=== PATIENT | male | born 1965 | race Caucasian/White ===

== ENCOUNTER 2020-09-19 07:48 | Outpatient (CLI) | payer OTHER, SELFPAY ==
[2020-09-19 08:24] LABS: Hematocrit 45.8 % (42.0-52.0); Hemoglobin 15.6 g/dL (14.0-18.0); Mean Corpuscular HGB Conc 34.1 g/dl (32-36); Mean Corpuscular Hemoglobin 30.3 pg (26-34); Mean Corpuscular Volume 88.9 fl (80-100); Mean Platelet Volume 10.1 fl (7.4-10.4); Platelet Count Result 216 k/mm3 (150-375); Red Blood Count 5.15 M/mm3 (4.6-6.20); Red Cell Distribution Width 12.1 % (11.5-14.5); White Blood Count 6.4 K/mm3 (4.5-10.0)
[2020-09-19 08:36] LABS: Add Urine Microscopic? YES; Appearance Urine Clear (Clear); Bilirubin Urine Negative (Negative); Blood Urine 1+ (Negative); Color Urine Yellow (Yellow); Glucose Urine UA Negative (Negative); Ketones Urine Negative (Negative); Leukocyte Esterase Ur Negative LEU/UL (NEGATIVE); Mucus Urine Rare /lpf; Nitrate Urine Negative (Negative); Protein Urine Negative (Negative); RBC Urine 0-2 /hpf (0-2); Specific Grav Ur 1.021 (1.001-1.035); Urobilinogen Urine Negative mg/dL (<2.0); WBC Urine 0-3 /hpf (0-3)
[2020-09-19 09:08] LABS: Alanine Aminotransferase 20 U/L (4-50); Albumin Level 4.3 g/dL (3.5-5.1); Alkaline Phosphatase 71 U/L (38-126); Anion Gap 7 mmol/L (8-16); Aspartate Amino Transferase 26 U/L (17-59); Blood Urea Nitrogen 20 mg/dL (9-20); Calcium 9.2 mg/dL (8.4-10.2); Carbon Dioxide 31 mmol/L (22-30); Chloride 98 mmol/L (98-107); Cholesterol 189 mg/dL (0-200); Estimated Glomerular Filt Rate > 60; Glucose 153 mg/dL (75-110); HDL Direct 30 mg/dL; Potassium 3.8 mmol/L (3.4-5.0); Sodium 136 mmol/L (137-145); Triglycerides 158 mg/dL (<150)
[2020-09-19 09:18] LABS: LDL Cholesterol Direct 133 mg/dL
[2020-09-19 09:32] LABS: Prostate Specific Antigen 0.8 ng/mL (< OR = 4.0); Thyroid Stimulating Hormone 0.854 uIU/mL (0.465-4.680)
[2020-09-19 18:04] LABS: Hemoglobin A1C 6.9 % (<5.7)
== END 2020-09-19 07:49 | disposition home or self-care (01) ==
PROVIDERS: PCP Family Medicine; Visit Provider Family Medicine
DX: G47.33 Obstructive sleep apnea (adult) (pediatric) (principal); R35.1 Nocturia; I10 Essential (primary) hypertension; Z00.00 Encounter for general adult medical examination without abnormal findings; Z51.81 Encounter for therapeutic drug level monitoring; Z79.899 Other long term (current) drug therapy
CPT/HCPCS: 36415; 80053; 80061; 81001; 83036; 84153; 84443; 85027

== ENCOUNTER 2021-01-12 10:30 | Outpatient (RCR) | payer OTHER, SELFPAY ==
[2020-10-30 14:05] VITALS: BMI 40.6
[2020-10-30 14:10] VITALS: BMI 40.6
== END 2021-01-12 13:56 | disposition home or self-care (01) ==
LOC: ANHDMC 10:30
PROVIDERS: PCP Family Medicine; Visit Provider Family Medicine
DX: E11.65 Type 2 diabetes mellitus with hyperglycemia (principal); Z71.3 Dietary counseling and surveillance; Z71.89 Other specified counseling
CPT/HCPCS: 97802; G0108

== ENCOUNTER 2021-01-13 07:52 | Outpatient (CLI) | payer OTHER, SELFPAY ==
[2021-01-13 08:36] LABS: Alanine Aminotransferase 23 U/L (4-50); Albumin Level 4.3 g/dL (3.5-5.1); Alkaline Phosphatase 60 U/L (38-126); Anion Gap 6 mmol/L (8-16); Aspartate Amino Transferase 27 U/L (17-59); Bilirubin,Total 0.7 mg/dL (0.2-1.3); Blood Urea Nitrogen 22 mg/dL (9-20); Calcium 8.6 mg/dL (8.4-10.2); Carbon Dioxide 32 mmol/L (22-30); Chloride 100 mmol/L (98-107); Estimated Glomerular Filt Rate 58; Glucose 125 mg/dL (75-110); Sodium 138 mmol/L (137-145)
[2021-01-13 08:42] LABS: Hemoglobin A1C 6.7 % (<5.7)
== END 2021-01-13 07:53 | disposition home or self-care (01) ==
PROVIDERS: PCP Family Medicine; Visit Provider Family Medicine
DX: E11.9 Type 2 diabetes mellitus without complications (principal)
CPT/HCPCS: 36415; 80053; 83036

== ENCOUNTER 2021-01-21 09:19 | Observation (INO) | payer OTHER, SELFPAY ==
[2021-01-21] VITALS (13 sets, daily range): BP systolic 104–156; BP diastolic 66–95; PULSE 49–68; RESP 14–16; TEMP 36.2–36.6; O2SAT 95–99; BMI 38.8
--- NOTE | ~2021-01-21 | XR_ITS ---
EXAMINATION: XR chest 2V DATE: 01/21/2021 09:39 INDICATION: Chest pain. TECHNIQUE: Frontal and lateral views of the chest were obtained. COMPARISON: Chest 2 views 04/09/2019, chest CT 03/28/2019 FINDINGS: There is no pneumonia, pleural effusion, or pneumothorax. The heart size is normal. There a re prominent paracardial fat pads. There is an old fracture of right eighth rib. IMPRESSION: 1. No acute cardiopulmonary disease. Reviewed, dictated and finalized at location A.
--- NOTE | 2021-01-21 09:24 | ECG_ITS ---
Measurements Intervals [place] Rate: 57 P: 29 NE: 205 QRS: -11 QRSD: 163 T: -24 QT: 442 QTc: 431 Interpretive Statements SINUS BRADYCARDIA WITH FIRST DEGREE AV BLOCK RIGHT BUNDLE BRANCH BLOCK INFERIOR INFARCT, AGE INDETERMINATE BASELINE ARTIFACT- II ABNORMAL ECG Electronically Signed On 01-21-2021 9:41:05 CDT by Trevor Laws D.O.
[2021-01-21] MEDS: ASPIRIN 81 MG CHEWABLE TABLET 324 MG PO (10:29)
--- NOTE | 2021-01-21 10:31 | ED.CHESTPAIN ---
HPI - Chest Pain General Chief Complaint: Chest Pain Stated Complaint: chest pain Time Seen by Provider: 01/21/21 10:24 Source: patient and RN notes reviewed Mode of arrival: ambulatory Limitations: no limitations History of Present Illness HPI narrative: Patient is 55 years old white male went see his family physician today for diabetes follow-up. Then told his family physician that he been having intermittent chest pain all night long last between 2 and 5 minutes each time, random, associated with intermittent shortness of breath, denies radiation of pain, denies any aggravating or relieving factors. Had similar symptoms 2 years ago with negative cardiac cath. History of hypertension, diabetes, hyperlipidemia, sister had history of coronary artery disease. Patient does not smoke. Patient does not know his parents history. Patient denies any fever, chills, nausea, vomiting, back pain, coughing Related Data Home Medications Medication Instructions Recorded Confirmed carvedilol 25 mg tablet 25 mg PO Q12H 09/05/19 01/21/21 chlorthalidone 25 mg tablet 25 mg PO DAILY 09/05/19 01/21/21 lisinopril 40 mg tablet 40 mg PO DAILY 09/05/19 01/21/21 Allergies Allergy/AdvReac Type Severity Reaction Status Date / Time No Known Allergies Allergy Verified 01/21/21 08:43 Review of Systems Review of Systems: Narrative: CONSTITUTIONAL: Denies fever, chills, or sweats. EYES: Denies visual changes, redness, or discharge. ENT: Denies rhinorrhea, congestion, sore throat, or otalgia. CARDIOVASCULAR: Denies chest pain, palpitations, or edema. RESPIRATORY: Denies cough or dyspnea. GASTROINTESTINAL: Denies abdominal pain, nausea, vomiting, or diarrhea. GENITOURINARY: Denies dysuria or hematuria. SKIN: Denies rash or itching. MUSCULOSKELETAL: Denies back pain, joint pain, or myalgia. NEUROLOGIC: Denies headache, numbness, or weakness. PSYCHIATRIC: Denies anxiety or depression. [facility] Past Medical History Medical History SHRUTHI (obstructive sleep apnea) Family History Family History Mother Diabetes mellitus Hypertension Family history of cardiovascular disease Sibling Hypertension Family history of cardiovascular disease Social History Social History Smoking status: Never smoker Second hand tobacco smoke exposure: No Alcohol intake: current Substance use: never Substance use type: does not use Gender identity (if verbalized by the patient): Male Spiritual care concerns: No Exam Narrative: Exam Narrative: General appearance: Well-developed, well-nourished Skin: Normal color Head: Normocephalic, nontraumatic Eyes: Clear conjunctiva ENT: Oropharynx normal, ears normal, nose normal Neck: Supple, nontender Chest and respiratory: Airway patent, no respiratory distress, no accessory muscle use Heart: Regular rate/rhythm Abdomen: Soft, nontender, no organomegaly, quiet bowel sounds Vascular: Normal peripheral pulses, normal capillary refill. Musculoskeletal: Normal range of motion, nontender back Neurologic: Alert and oriented ?3, [employer] is normal as tested, no gross motor deficit Course Consultations Consultation #1: Dr. Pool Date: 01/21/21 Time: 10:33 Consultation #2: Dr. Rodriguez Date: 01/21/21 Time: 11:18 Vital Signs Vital signs: Vital Signs Pulse Rate 60 01/21/21 09:52 Temperature 36.6 C 01/21/21 09:56 Pulse Rate 56 L 01/21/21 10:30 Respiratory Rate 14 01/21/21 10:30 Blood Pressure 154/83 H 01/21/21 10:30 Pulse Oximetry 99 01/21/21 10:30 MDM - Ches
[2021-01-21 10:36] LABS: Basophils Percent Auto 0.4 % (0.2-1.2); Eosinophils Absolute Auto 0.1 K/mm3 (0-0.3); Eosinophils Percent Auto 1.8 % (0-4.4); Hematocrit 45.5 % (42.0-52.0); Hemoglobin 15.5 g/dL (14.0-18.0); Immature Granulocyte Absolute 0.03 K/mm3 (0.00-0.031); Immature Granulocyte Percent A 0.4 % (0-0.5); Lymphocytes Absolute Auto 1.55 K/mm3 (0.9-3.2); Lymphocytes Percent Auto 22.9 % (18.3-44.2); Mean Corpuscular HGB Conc 34.1 g/dl (32-36); Mean Corpuscular Hemoglobin 30.8 pg (26-34); Mean Corpuscular Volume 90.5 fl (80-100); Mean Platelet Volume 10.3 fl (7.4-10.4); Monocytes Absolute Auto 0.7 K/mm3 (0.1-0.6); Monocytes Percent Auto 9.6 % (2.6-8.5); Neutrophils Absolute Auto 4.4 K/mm3 (1.3-6.7); Neutrophils Percent Auto 64.9 % (45.5-73.1); Platelet Count Result 196 k/mm3 (150-375); Red Blood Count 5.03 M/mm3 (4.6-6.20); Red Cell Distribution Width 12.7 % (11.5-14.5); White Blood Count 6.8 K/mm3 (4.5-10.0)
[2021-01-21 10:46] LABS: Prothrombin Time 13.4 Seconds (11.1-14.7)
[2021-01-21 10:49] LABS: Anion Gap 9 mmol/L (8-16); Blood Urea Nitrogen 25 mg/dL (9-20); Calcium 8.9 mg/dL (8.4-10.2); Carbon Dioxide 28 mmol/L (22-30); Chloride 98 mmol/L (98-107); Estimated CRCL calculation 83 ml/min; Estimated Glomerular Filt Rate > 60; Glucose 130 mg/dL (75-110); Potassium 3.8 mmol/L (3.4-5.0); Sodium 135 mmol/L (137-145)
[2021-01-21 11:00] LABS: Troponin I < 0.012 ng/mL (0.000-0.034)
[2021-01-21] MEDS: METOPROLOL TARTRATE 25 MG TABLET PO (11:15)
[2021-01-21] MEDS: NITROGLYCERIN SL 0.4 MG TABLET SUBLINGUAL (11:16)
[2021-01-21 14:04] LABS: Troponin I < 0.012 ng/mL (0.000-0.034)
--- NOTE | 2021-01-21 15:23 | PM.CNCAR ---
Assessment and Plan Assessment and plan (1) Chest pain: Qualifiers: Chest pain type: unspecified Qualified Code(s): R07.9 - Chest pain, unspecified Code(s): R07.9 - Chest pain, unspecified Status: Acute Assessment and Plan: Atypical, very likely noncardiac although cannot exclude esophageal and/or coronary vasospasm. Given normal coronary anatomy left heart catheterization February 2019 very unlikely patient has developed significant/severe obstructive CAD any interval with negative cardiac enzymes. Symptoms are atypical caring at rest, no aggravating or relieving factors. Improved with sublingual nitroglycerin but with significant headache. Add amlodipine 2.5 mg daily for basal dilatation. Monitor tolerance. Disposition per hospitalist service. If patient stable, tolerating medical therapy and chest pain much improved discharged home to follow with PCP and Dr. Marie as an outpatient. No indication to repeat ischemic evaluation given normal coronary anatomy on recent cardiac catheterization. No clinical evidence of pericarditis. EKG is abnormal but is unchanged compared to prior tracing 2018 with right bundle-branch block, inferior myocardial infarction but with normal coronary anatomy left heart catheterization as described above. (2) Essential hypertension: Code(s): I10 - Essential (primary) hypertension Status: Acute Assessment and Plan: Reasonable control at home although somewhat variable. Monitor tolerance was addition of amlodipine. (3) SHRUTHI (obstructive sleep apnea): Code(s): G47.33 - Obstructive sleep apnea (adult) (pediatric) Status: Acute Assessment and Plan: Strongly encouraged compliance with CPAP as this may also be contributing but patient states this has been difficult for him due to claustrophobia. (4) Diabetes mellitus: Code(s): E11.9 - Type 2 diabetes mellitus without complications Status: Acute Assessment and Plan: Per primary service. History of Present Illness History of Present Illness Consult date/time: Date of service: 01/21/21 15:23 Cardiology consultation at the request of Dr. Vo for our opinion regarding chest pain. Requesting physician: Eusebia Vo MD Consult reason: chest pain Reason For Visit: chest pain Narrative: With past medical history significant for hypertension, diabetes mellitus, obesity, untreated obstructive sleep apnea, and normal coronary anatomy and left heart catheterization performed February 2019, chronic right bundle-branch block presents to his PCP earlier today with complaints of intermittent squeezing chest pain worse than normal. Patient states he has years history of almost a daily left-sided chest squeezing occurring randomly lasting few seconds generally without associated symptoms. On couple of occasions with seen to radiate to his left arm where it at least felt a little uncomfortable. Patient states last night around 10:00 p.m. pain became more severe waxing waning in intensity and felt a little dizzy at times to denies significant shortness of breath no aggravating or relieving factors. Denies positional component. No fevers, chills, recent illnesses or sick contacts. Denies acid reflux symptoms. He has not been utilizing CPAP. No changes in medications. Nitroglycerin in the ER improved his chest pain but did not completely resolve it although he had a severe headache as a result. Negative troponin x2 thus far, EKG abnormal but unchanged compared to tracings from 2019. Patient was previously followed by Dr. Marie. He has minimal discomfort at this time although persistent. He has been compliant with medications. He did not take anything [id number] at home for this pain. Review of Systems Review of Systems: All systems reviewed & are unremarkable except as noted in HPI and below Constitutional: Constitutional: Reports as per HPI, Reports no additional constitutional complaints and
[2021-01-21] MEDS: amLODIPine BESYLATE 2.5 MG TABLET PO (16:13)
--- NOTE | 2021-01-21 16:30 | PM.IMHP ---
H&P: HPI History of Present Illness Date/Time: 01/21/21 16:30 Chief Complaint: Chest pain, abnormal EKG. Narrative: This is a 55-year-old male with hypertension, diet-controlled diabetes, right bundle branch block, and untreated sleep apnea who presented to the emergency department earlier today from his primary care provider's office for evaluation of chest pain after he reportedly had an abnormal EKG tracing. For the past several years he has had almost daily, intermittent, self-limiting left-sided squeezing chest pain which typically last for a few seconds at a time. In fact he had a left heart catheterization in February 2019 for evaluation of these pains which revealed normal coronary anatomy. Last evening once again developed squeezing discomfort in the left anterior chest but the episodes seem to last longer than usual with occasional discomfort up into the left shoulder. When the squeezing is particularly severe he feels a bit dizzy and perhaps even somewhat short of breath as well. He sees no pattern as to when knees of her and has not noticed that they occur with exertion, eating, or with position changes. Nitroglycerin given in the emergency department perhaps helped the squeezing discomfort but he had a significant headache as a result. His EKG was abnormal but unchanged when compared to previous EKG from 2019. At the time of this dictation he has ruled out for acute coronary syndrome by serial troponins and after discussions with Dr. Staples (cardiology) he feels that the patient could be discharged home for outpatient follow-up with Dr. Marie. Low-dose amlodipine was added to his medication regimen to see if it may be beneficial should his symptoms be related to vasospasms. Unfortunately he continues to have episodes of squeezing left chest pain and he is being kept overnight. Review of Systems Review of Systems: Narrative: Twelve systems were reviewed. He had a headache following nitroglycerin given in the emergency department. No recent cold or flu symptoms. He denies GERD, indigestion, and other GI concerns. No recent heavy lifting, change in exercise, or concerns for strained muscles about the chest wall. He denies orthopnea, PND, and significant lower extremity edema. He is noncompliant with CPAP as he has a hard time tolerating the mask due to claustrophobia. Except as documented, all other systems were reviewed and are negative. COUNT INCLUDES [facility] Past Medical History Medical History (Updated 01/21/21 @ 15:56 by Lina Lopez PA-C) Diabetes mellitus Diagnosed in September 2020 at which time his A1c was 6.9%. To avoid medication he has been trying to lose weight with most recent hemoglobin A1c of 6.7%. Essential hypertension Obstructive sleep apnea Untreated, patient does not tolerate CPAP. Right bundle branch block Surgical History Surgical History (Updated 01/21/21 @ 15:56 by Lina Lopez PA-C) History of cardiac catheterization (~02/2019) Normal coronary arteries. Family History Family History Mother Diabetes mellitus Hypertension Family history of cardiovascular disease Sibling Hypertension Family history of cardiovascular disease Social History Social History (Updated 01/21/21 @ 23:10 by Lina Lopez PA-C) Social History: Surrogate decision maker: Megan Puentes, mother. Code status: Full code. Smoking status: Never smoker Second hand tobacco smoke exposure: No Alcohol intake: current Drinks per week: 4 Substance use: never Substance use type: does not use Additional living arrangements comments: The patient lives in [place] with his daughter. Additional occupation/education comments: Works in [employer] at [employer]. Gender identity (if verbalized by the patient): Male Spiritual care concerns: No Meds Home Medications and Allergies Home Medications Medication Instructions Recorded Confirmed Type ca
--- NOTE | 2021-01-21 16:49 | PC.NURSE ---
1630 - Pt arrived to Chest pain center at 1300. Pt with dizzyness noted upon standing from stretcher to transfer to bed. Mild chest pain intermittently 1/10 noted to be squeezing sensation. No nausea, Appetite good with heart healthy diet. Dr Rodriguez here to see patient from Cariology consult recommended starting pt on Amlodipine 2.5mg - first dose given at 1600. Pt with pleasant affect, cooperative. No further dizzyness noted. Troponin currently negative x2. IV saline lock intact to left hand.
[2021-01-21 18:08] LABS: Glucose Point of Care 117 (65-105)
[2021-01-21 18:41] LABS: Troponin I < 0.012 ng/mL (0.000-0.034)
[2021-01-21] MEDS: carvediloL 25 MG TABLET PO (21:16)
[2021-01-21 21:19] LABS: Glucose Point of Care 114 (65-105)
[2021-01-22] VITALS (8 sets, daily range): BP systolic 107–119; BP diastolic 55–72; PULSE 44–69; RESP 12–16; TEMP 36.1–36.3; O2SAT 95–98
[2021-01-22 06:29] LABS: Hemoglobin A1C 6.6 % (<5.7)
[2021-01-22 06:32] LABS: Alanine Aminotransferase 22 U/L (4-50); Albumin Level 4.3 g/dL (3.5-5.1); Alkaline Phosphatase 62 U/L (38-126); Anion Gap 6 mmol/L (8-16); Aspartate Amino Transferase 27 U/L (17-59); Bilirubin,Total 0.9 mg/dL (0.2-1.3); Blood Urea Nitrogen 22 mg/dL (9-20); Calcium 8.8 mg/dL (8.4-10.2); Carbon Dioxide 34 mmol/L (22-30); Chloride 97 mmol/L (98-107); Cholesterol 194 mg/dL (0-200); Estimated CRCL calculation 71 ml/min; Estimated Glomerular Filt Rate 53; Glucose 119 mg/dL (75-110); HDL Direct 28 mg/dL; Potassium 3.6 mmol/L (3.4-5.0); Sodium 137 mmol/L (137-145); Triglycerides 178 mg/dL (<150)
[2021-01-22 06:43] LABS: LDL Cholesterol Direct 124 mg/dL
[2021-01-22 07:55] LABS: Glucose Point of Care 112 (65-105)
--- NOTE | 2021-01-22 08:43 | PC.NURSE ---
DR. MALAGON TO BEDSIDE TO SEE PT.
--- NOTE | 2021-01-22 08:52 | PM.PNCARD ---
Progress Note: A&P Assessment and Plan (1) Chest pain: Qualifiers: Chest pain type: unspecified Qualified Code(s): R07.9 - Chest pain, unspecified Code(s): R07.9 - Chest pain, unspecified Status: Acute Assessment and Plan: Atypical, very likely noncardiac although cannot exclude esophageal and/or coronary vasospasm. Given normal coronary anatomy left heart catheterization February 2019 very unlikely patient has developed significant/severe obstructive CAD any interval with negative cardiac enzymes. Symptoms are atypical caring at rest, no aggravating or relieving factors. Improved with sublingual nitroglycerin but with significant headache. Thus far, chest pain has resolved with addition of amlodipine 2.5 mg daily. Stable for discharge from cardiac perspective. No plan for ischemic workup given normal coronary anatomy on [facility] less than 2 years ago. Follow-up with Dr. Marie in the office in 4 weeks. EKG is abnormal but is unchanged compared to prior tracing 2018 with right bundle-branch block, inferior myocardial infarction but with normal coronary anatomy left heart catheterization as described above. (2) Essential hypertension: Code(s): I10 - Essential (primary) hypertension Status: Acute Assessment and Plan: Well controlled at present. Tolerating amlodipine. (3) SHRUTHI (obstructive sleep apnea): Code(s): G47.33 - Obstructive sleep apnea (adult) (pediatric) Status: Acute Assessment and Plan: Strongly encouraged compliance with CPAP as this may also be contributing but patient states this has been difficult for him due to claustrophobia. (4) Diabetes mellitus: Code(s): E11.9 - Type 2 diabetes mellitus without complications Status: Acute Assessment and Plan: Per primary service. Subjective Date/time seen: Date of service: 01/22/21 08:52 Follow-up for chest pain No chest pain overnight. Patient feels well, denies dizziness. BP well controlled. Patient has no other concerns at this time. No shortness of breath, palpitations. He is currently pain-free. Review of Systems Review of Systems: All systems reviewed & are unremarkable except as noted in HPI and below Constitutional: Constitutional: Reports as per HPI, Reports no additional constitutional complaints and Reports fatigue Eyes: Eyes: Reports as per HPI and Reports no additional eye complaints ENT: Reports system reviewed and no additional complaints, except as documented and Reports as per HPI Cardiovascular: Cardiovascular: Reports as per HPI, Reports no additional cardiovascular complaints, Reports chest pain, Denies diaphoresis, Reports lightheadedness, Denies palpitations, Denies dyspnea and Denies dyspnea on exertion Respiratory: Respiratory: Reports as per HPI, Reports no additional respiratory complaints, Denies dyspnea and Denies dyspnea on exertion Gastrointestinal: Gastrointestinal: Reports as per HPI, Reports no additional gastrointestinal complaints, Denies abdominal pain, Denies melena, Denies hematochezia, Denies nausea and Denies vomiting Genitourinary: Genitourinary: Reports no additional male genitourinary complaints and Reports as per HPI Musculoskeletal: Musculoskeletal: Reports no additional musculoskeletal complaints and Reports as per HPI Integumentary/Breasts: Skin/Breast: Reports system reviewed and no additional complaints, except as docu and Reports as per HPI Neurologic: Reports system reviewed and no additional complaints, except as documented and Reports as per HPI Psychiatric: Psychiatric: Reports no additional psychiatric complaints and Reports as per HPI Endocrine: Endocrine: Reports no additional endocrine complaints, Reports as per HPI, Reports fatigue and Denies palpitations Hematologic/Lymphatic: Hematologic/Lymphatic: Reports no additional hematologic/lymphatic complaints and Reports as per HPI Allergic/Immunologic: Allergic/Immunologic: Reports
[2021-01-22] MEDS: ASPIRIN 81 MG CHEWABLE TABLET PO (09:36)
[2021-01-22] MEDS: carvediloL 25 MG TABLET PO (09:37)
[2021-01-22] MEDS: amLODIPine BESYLATE 2.5 MG TABLET PO (09:37)
[2021-01-22] MEDS: CHLORTHALIDONE 25 MG TABLET PO (09:37)
[2021-01-22] MEDS: lisinopriL 20 MG TABLET 40 MG PO (09:37)
--- NOTE | 2021-01-22 09:45 | PM.DS ---
DS: Admitting Diagnosis Admitting Diagnosis Admitting Diagnosis: Chest pain DS: Discharge Diagnosis Discharge Diagnosis (1) Chest pain: Qualifiers: Chest pain type: unspecified Qualified Code(s): R07.9 - Chest pain, unspecified Code(s): R07.9 - Chest pain, unspecified Status: Acute Assessment and Plan: Chest pain appears to be atypical and has not reoccurred the day of discharge -troponin negative x3 - normal cardiac catheterization 2019, ACS less likely -chest x-ray negative -no hypoxia, PE seems less likely -longstanding chest pain, esophageal verses coronary vasospasm? -amlodipine started -follow-up with cardiology outpatient -aspirin added to home regimen (2) Essential hypertension: Code(s): I10 - Essential (primary) hypertension Status: Acute Assessment and Plan: Last blood pressure 109/72 with no lightheadedness or dizziness -Continue amlodipine, chlorthalidone, lisinopril, and carvedilol. (3) Diabetes mellitus: Code(s): E11.9 - Type 2 diabetes mellitus without complications Status: Acute Assessment and Plan: Diet-controlled diabetes with improvement in his most recent hemoglobin A1c to 6..6 -he does not want to be on any further medications and is going to follow a diet and follow-up with his primary care physician (4) Obstructive sleep apnea: Code(s): G47.33 - Obstructive sleep apnea (adult) (pediatric) Status: Acute Assessment and Plan: Patient reports that he is claustrophobic and is unable to tolerate CPAP. We did discussed the importance of treating his sleep apnea and that there are other options besides fullface mask. DS: Summary Hospital Course Hospital Course: Patient is a 55-year-old male with a past medical history of diabetes, hypertension, SHRUTHI who presented emergency room for intermittent chest pain that has been chronic but persistent. Vitals in the ER were temperature 36.6? C, pulse 56, respiratory rate 14, blood pressure 154/83, pulse ox 99 on room air. CBC within normal limits. Chest x-ray normal. BMP within the normal limits with the exception of BUN 25. EKG showed sinus bradycardia with first-degree AV block, right bundle branch block. Patient admitted to the hospital service observed overnight. He was started on amlodipine. He had no further chest pain. Cardiology was consulted and is going to follow up with him in 4 weeks. Patient was educated about the worrisome signs and symptoms come back to emergency room for was discharged stable condition. Status at Discharge Functional status at discharge: independent ambulation Overall status at discharge: patient is back to baseline Time Spent with Patient Time attestation: Total time spent providing and/or coordinating discharge services:32 min Time spent: Greater than 30 minutes Exam Narrative: Exam Narrative: General: Overweight patient resting comfortably in bed in no acute distress HEENT: normocephalic Neck: supple Neuro: Alert and oriented x4 CV:RRR no murmurs Resp:CTA Abd: Soft, non distended. No pain to palpation. Positive bowel sounds Extremities: No swelling, erythema, or pain to palpation. DS: Data Data Completed and Pending Labs on day of discharge: Labs from last 24 hours 01/22/21 01/22/21 01/22/21 07:53 06:05 06:05 WBC RBC Hgb Hct MCV MCH MCHC RDW Plt Count MPV Immature Gran % (Auto) Neut % (Auto) Lymph % (Auto) [place] % (Auto) Eos % (Auto) Baso % (Auto) Lymph # (Auto) [place] # (Auto) Eos # (Auto) Baso # (Auto) Abs Immat Gran (auto) Absolute Neuts (auto) Absolute Nucleated RBC Nucleated RBC % PT INR APTT Sodium 137 Potassium 3.6 Chloride 97 L Carbon Dioxide 34 H Anion Gap 6 L BUN 22 H Creatinine 1.40 H Estim Creat Clear Calc 71 Estimated GFR 53 L Glucose 119 H POC Capillary Gl
--- NOTE | 2021-01-22 12:05 | PC.NURSE ---
REVIEWED DISCHARGE INSTRUCTIONS W/ PT. QUESTIONS ANSWERED. VOICED UNDERSTANDING OF ALL. DISCHARGED HOME, OUT AMBULATORY WITH ALL PERSONAL BELONGINGS AND DISCHARGE PACKET TO OWN CAR. STEADY GAIT. VOICES NO C/O. NO DISTRESS NOTED.
== END 2021-01-22 12:05 | disposition home or self-care (01) ==
LOC: ANHED 11:18 → ANHCPC 11:55
PROVIDERS: Physician Assistant; Admitting Provider Internal Medicine; Emergency Provider Emergency Medicine; PCP Family Medicine; Visit Provider Physician Assistant
DX: R07.9 Chest pain, unspecified (principal); I10 Essential (primary) hypertension; R00.1 Bradycardia, unspecified; I45.10 Unspecified right bundle-branch block; G47.33 Obstructive sleep apnea (adult) (pediatric); E11.9 Type 2 diabetes mellitus without complications; E66.9 Obesity, unspecified; Z68.38 Body mass index [BMI] 38.0-38.9, adult
CPT/HCPCS: 36415; 71046; 80048; 80053; 80061; 83036; 84484; 85025; 85610; 85730; 93005; 99285; A9270; G0378

== ENCOUNTER 2021-01-28 10:44 | Observation (INO) | payer OTHER, SELFPAY ==
[2021-01-28] VITALS (20 sets, daily range): BP systolic 101–161; BP diastolic 59–98; PULSE 52–85; RESP 16–23; TEMP 35.7–36.6; O2SAT 90–100; BMI 39.0
--- NOTE | ~2021-01-28 | NM_ITS ---
EXAMINATION: NM jack stress w perfusion DATE: 01/29/2021 15:07 INDICATION: Chest pain. TECHNIQUE: Rest images were obtained following intravenous administration of 10 mCi Tc99m tetrofosmin (Myoview). The patient was infused intravenously with Lexiscan (regadenoson). Then, 30.8 mCi Tc99m t etrofosmin (Myoview) was administered intravenously, and prone and supine stress images were obtained . Data was reconstructed into short axis and horizontal and vertical long axis SPECT images. Gated SP ECT images were also obtained. COMPARISON: Chest CT 01/28/2021 FINDINGS: There is no definite reversible or fixed perfusion abnormality to suggest ischemia or infar ction. There is no segmental wall motion abnormality. Left ventricular ejection fraction measures > 70%. IMPRESSION: 1. No definite ischemia or infarct. 2. Normal left ventricular ejection fraction measuring >70%. Reviewed, dictated and finalized at location A.
--- NOTE | ~2021-01-28 | US_ITS ---
EXAMINATION: US abdomen complete EXAM DATE: 01/29/2021 11:23 INDICATION: Chest pain. TECHNIQUE: Multiple grayscale and Doppler images of the complete abdomen were obtained (by a technolo gist who performed the scan) and subsequently reviewed. There is no prior study for comparison. FINDINGS: The abdominal aorta is normal in caliber. Visualized portion IVC is patent. The pancreatic head a nd body are normal in appearance. The pancreatic tail is not visualized. There is echogenic liver parenchyma, hepatic steatosis. There are no focal liver lesions identified. There is no evidence of intrahepatic biliary duct dilation. Portal venous flow was seen in the he patopedal, normal direction and has normal Doppler waveform. Common bile duct measures 3 mm, which is normal. The gallbladder wall is normal in thickness, with ex pected amount of distention. No sonographic evidence of pericholecystic fluid. There is no cholelit hiases. Technologist performing exam reports patient did not demonstrate sonographic Arellano's sign. Please note that this sign is less reliable in patients who have received pain medication. Right kidney: There is normal contour and echogenicity. It measures 11.5 x 6.4 x 4.8 centimeters. There are no focal renal lesions identified. There is no hydronephrosis. Left kidney: There is normal contour and echogenicity. It measures 10.3 x 5.5 x 5.0 centimeters. T here are no focal renal lesions identified. There is no hydronephrosis. The spleen is morphologically normal. IMPRESSION: 1. Hepatic steatosis. Reviewed, dictated and finalized at location A. IMPRESSION: 1. Hepatic steatosis.
--- NOTE | ~2021-01-28 | CT_ITS ---
EXAMINATION: CTA chest PE protocol EXAM DATE: 01/28/2021 12:04 INDICATION: Mid chest pain, shortness of breath. TECHNIQUE: Spiral CTA of the chest (pulmonary arteries) was performed with 100 cc Omnipaque 350 intr avenous contrast injection. Images were acquired during the pulmonary arterial phase. Coronal maxi mum intensity projection 3D-reconstructions were created by the technologist on dedicated workstation . Axial, coronal and sagittal reformatted images were reviewed. The dose-length product (DLP) for t his examination was 957.34 mGy-cm. The exposure was tailored according to patient size (auto mA exp osure control), and iterative reconstruction (ASIR) was used as additional dose reduction technique. Comparison is made to prior examination from 03/28/2019. FINDINGS: There are no pulmonary emboli in the 1st through 3rd order (central and interlobar) pulmon sergio arteries. Some loss of attenuation in a left basilar posterior segmental pulmonary, with evidenc e of respiratory motion at this location, could be artifactual but can't exclude tiny pulmonary embol ism. This finding has been indicated, marked on axial sequence 3 image 122. No thoracic aortic dissec tion. Mild dependent atelectasis. There are no pleural or pericardial effusions. Tracheobronchial tree is patent. There is no mediastinal, hilar or axillary lymphadenopathy. There is no pneumoth orax. Borderline heart size. No evidence of coronary arterial calcification. There is hepatic alis atosis. There is mild thoracic spondylosis without osteoblastic or osteolytic lesions identified. 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 IMPRESSION: 1. Loss of attenuation in single left basilar segmental pulmonary artery, with evidence of respirato ry motion at this location. Most likely artifactual but can't totally exclude tiny pulmonary embolism . 2. Bibasilar subsegmental atelectasis. 3. Hepatic steatosis. Reviewed, dictated and finalized at location A. IMPRESSION: 1. Loss of attenuation in single left basilar segmental pulmonary artery, with evidence of respiratory motion at this location. Most likely artifactual but c an't totally exclude tiny pulmonary embolism. 2. Bibasilar subsegmental atelectasis. 3. Hepatic steatosis.
--- NOTE | ~2021-01-28 | XR_ITS ---
EXAMINATION: XR chest 2V DATE: 01/28/2021 11:13 INDICATION: Chest pain and shortness of breath. TECHNIQUE: Frontal and lateral views of the chest were obtained. COMPARISON: Chest 2 views 01/21/2021, chest CT 03/28/2019 FINDINGS: There is mild atelectasis in the lower lung zones. No pleural effusion or pneumothorax. The heart size is normal. There is an old ununited fracture of right eighth rib. IMPRESSION: 1. Mild atelectasis in the lower lung zones. Reviewed, dictated and finalized at location A.
--- NOTE | 2021-01-28 10:51 | ECG_ITS ---
Measurements Intervals [place] Rate: 66 P: 27 MS: 200 QRS: -12 QRSD: 145 T: 2 QT: 424 QTc: 446 Interpretive Statements SINUS RHYTHM RIGHT BUNDLE BRANCH BLOCK INFERIOR INFARCT, AGE INDETERMINATE BASELINE ARTIFACT- I, II, III, AVR, AVL, AVF, V4-V6 ABNORMAL ECG Electronically Signed On 01-28-2021 11:12:08 CDT by Trevor Laws D.O.
--- NOTE | 2021-01-28 11:08 | PC.NURSE ---
Pt taken to radiology
[2021-01-28 11:14] LABS: Basophils Percent Auto 0.6 % (0.2-1.2); Eosinophils Absolute Auto 0.1 K/mm3 (0-0.3); Eosinophils Percent Auto 1.8 % (0-4.4); Hematocrit 47.5 % (42.0-52.0); Hemoglobin 16.1 g/dL (14.0-18.0); Immature Granulocyte Absolute 0.01 K/mm3 (0.00-0.031); Immature Granulocyte Percent A 0.2 % (0-0.5); Lymphocytes Absolute Auto 1.72 K/mm3 (0.9-3.2); Lymphocytes Percent Auto 27.8 % (18.3-44.2); Mean Corpuscular HGB Conc 33.9 g/dl (32-36); Mean Corpuscular Hemoglobin 30.8 pg (26-34); Mean Platelet Volume 10.6 fl (7.4-10.4); Monocytes Absolute Auto 0.7 K/mm3 (0.1-0.6); Neutrophils Absolute Auto 3.6 K/mm3 (1.3-6.7); Neutrophils Percent Auto 58.6 % (45.5-73.1); Platelet Count Result 189 k/mm3 (150-375); Red Blood Count 5.22 M/mm3 (4.6-6.20); Red Cell Distribution Width 12.7 % (11.5-14.5); White Blood Count 6.2 K/mm3 (4.5-10.0)
--- NOTE | 2021-01-28 11:20 | ED.CHESTPAIN ---
HPI - Chest Pain General Chief Complaint: Chest Pain Stated Complaint: cp, sob Time Seen by Provider: 01/28/21 11:03 Source: RN notes reviewed History of Present Illness HPI narrative: Patient presents to emergency department from home for chest pain. Patient states pain is located over the left side of the chest and does not radiate it is intermittent in nature and described as a squeezing sensation associate with shortness of breath denies any fevers or chills abdominal pain nausea vomiting or any other symptoms. The patient was admitted to the hospital approximately a week ago for similar chest pain seen by cardiology and is followed by Dr. Rodriguez Related Data Home Medications Medication Instructions Recorded Confirmed carvedilol 25 mg tablet 25 mg PO Q12H 09/05/19 01/21/21 chlorthalidone 25 mg tablet 25 mg PO DAILY 09/05/19 01/21/21 lisinopril 40 mg tablet 40 mg PO DAILY 09/05/19 01/21/21 Allergies Allergy/AdvReac Type Severity Reaction Status Date / Time No Known Allergies Allergy Verified 01/28/21 11:07 Review of Systems Review of Systems: Narrative: Gen.: Denies fevers or chills ENT: Denies congestion Respiratory: Reports shortness of breath CV: See HPI GI: Denies abdominal pain nausea, emesis or diarrhea Musculoskeletal: Denies back pain or muscle pain Neuro: Denies numbness, tingling, weakness or focal weakness Skin: Denies rash Except as documented, all other systems reviewed and negative [facility] Past Medical History Medical History Diabetes mellitus Diagnosed in September 2020 at which time his A1c was 6.9%. To avoid medication he has been trying to lose weight with most recent hemoglobin A1c of 6.7%. Essential hypertension Obstructive sleep apnea Untreated, patient does not tolerate CPAP. Right bundle branch block Surgical History Surgical History (Updated 01/21/21 @ 15:56 by Lina Lopez PA-C) History of cardiac catheterization (~02/2019) Normal coronary arteries. Family History Family History Mother Diabetes mellitus Hypertension Family history of cardiovascular disease Sibling Hypertension Family history of cardiovascular disease Social History Social History (Reviewed 01/28/21 @ 11:21 by ARNOLDO Zapata Social History: Surrogate decision maker: Megan Punetes, mother. Code status: Full code. Smoking status: Never smoker Second hand tobacco smoke exposure: No Alcohol intake: current Drinks per week: 4 Substance use: never Substance use type: does not use Additional living arrangements comments: The patient lives in [place] with his daughter. Additional occupation/education comments: Works in [employer] at [employer]. Gender identity (if verbalized by the patient): Male Spiritual care concerns: No Exam Narrative: Exam Narrative: APPEARANCE: No acute distress, nontoxic, resting in bed EYES: EOMI HEENT: Normocephalic, atraumatic, OMM RESPIRATORY: No respiratory distress Clear to auscultation bilaterally with no rhonchi wheezing or rales. CARDIOVASCULAR: Regular rate and rhythm without murmurs rubs or gallops. ABDOMINAL: Soft, nontender, nondistended, no rebound or guarding MUSCULOSKELETAl: Moves all extremities. No clubbing, cyanosis or edema. NEURO: Awake and alert. Following commands, speech normal, no focal deficits SKIN:: Warm, dry. No rashes lesions or abrasions PSYCHIATRIC: Normal affect/mood, Course Course Emergency Course: Reviewed old records Problem discussed Dr. Marte presentation work-up agrees with plan for consult Discussed with [facility] for Dr. New presentation work-up agrees with admission at this time Discussed with patient and family results of workup and diagnosis. Discussed need for admission. Patient and family understand and agree to current treatment plan Vital Signs Vital signs: Vital Si
[2021-01-28 11:23] LABS: INR 0.9; Prothrombin Time 12.5 Seconds (11.1-14.7)
[2021-01-28 11:24] LABS: Anion Gap 7 mmol/L (8-16); Blood Urea Nitrogen 28 mg/dL (9-20); Calcium 9.4 mg/dL (8.4-10.2); Carbon Dioxide 31 mmol/L (22-30); Chloride 100 mmol/L (98-107); Estimated CRCL calculation 76 ml/min; Estimated Glomerular Filt Rate 58; Glucose 123 mg/dL (75-110); Partial Thromboplastin Time 27.5 SECONDS (22.3-36.8); Potassium 3.9 mmol/L (3.4-5.0); Sodium 138 mmol/L (137-145)
[2021-01-28 11:37] LABS: Troponin I < 0.012 ng/mL (0.000-0.034)
[2021-01-28] MEDS: MORPHINE SULFATE (*CRX) 2 MG/ML INJ IV PUSH (11:40)
[2021-01-28 11:41] LABS: D Dimer 0.64 ug/mL (<0.48)
[2021-01-28 14:14] LABS: Troponin I < 0.012 ng/mL (0.000-0.034)
[2021-01-28] MEDS: ASPIRIN 81 MG CHEWABLE TABLET 324 MG PO (15:56)
--- NOTE | 2021-01-28 17:08 | PM.CNCAR ---
History of Present Illness History of Present Illness Consult date/time: 01/28/21 17:08 Reason For Visit: chest pain PMFSH Past Medical History Medical History Diabetes mellitus Diagnosed in September 2020 at which time his A1c was 6.9%. To avoid medication he has been trying to lose weight with most recent hemoglobin A1c of 6.7%. Essential hypertension Obstructive sleep apnea Untreated, patient does not tolerate CPAP. Right bundle branch block Surgical History Surgical History (Updated 01/21/21 @ 15:56 by Lina Lopez PA-C) History of cardiac catheterization (~02/2019) Normal coronary arteries. Family History Family History Mother Diabetes mellitus Hypertension Family history of cardiovascular disease Sibling Hypertension Family history of cardiovascular disease Social History Social History Social History: Surrogate decision maker: Megan Puentes, mother. Code status: Full code. Smoking status: Never smoker Second hand tobacco smoke exposure: No Alcohol intake: current Drinks per week: 4 Substance use: never Substance use type: does not use Additional living arrangements comments: The patient lives in [place] with his daughter. Additional occupation/education comments: Works in [employer] at [employer]. Gender identity (if verbalized by the patient): Male Spiritual care concerns: No Meds Home Medications and Allergies Home Medications Medication Instructions Recorded Confirmed Type carvedilol 25 mg tablet 25 mg PO Q12H 09/05/19 01/21/21 History chlorthalidone 25 mg tablet 25 mg PO DAILY 09/05/19 01/21/21 History lisinopril 40 mg tablet 40 mg PO DAILY 09/05/19 01/21/21 History amlodipine 2.5 mg PO QAM #30 tablet 01/22/21 Rx aspirin [Children's Aspirin] 81 mg PO DAILY@0800 30 Days #30 01/22/21 Rx tablet Allergies Allergy/AdvReac Type Severity Reaction Status Date / Time No Known Allergies Allergy Verified 01/28/21 11:07 Vital Signs Vital Signs - 24 hr 01/28/21 10:51 01/28/21 11:03 01/28/21 11:38 Temperature 97.9 F Pulse Rate 67 66 60 Respiratory Rate 18 18 Blood Pressure 161/98 H 126/64 Pulse Oximetry 100 98 01/28/21 12:15 01/28/21 12:40 01/28/21 13:58 Temperature Pulse Rate 60 59 L 54 L Respiratory Rate 18 18 20 Blood Pressure 108/67 107/64 109/59 L Pulse Oximetry 96 96 99 01/28/21 14:15 01/28/21 14:45 01/28/21 15:15 Temperature Pulse Rate 55 L 55 L 53 L Respiratory Rate 18 16 18 Blood Pressure 112/68 121/77 101/76 Pulse Oximetry 97 100 98 01/28/21 15:56 Temperature Pulse Rate 52 L Respiratory Rate 18 Blood Pressure 116/80 Pulse Oximetry 99 Results Labs and Meds Result diagrams: 01/28/21 11:04 01/28/21 11:04 Lab results: Cardiac Enzymes 01/28/21 01/28/21 Range/Units 11:04 13:47 Troponin I < 0.012 < 0.012 (0.000-0.034) ng/mL Coagulation 01/28/21 Range/Units 11:04 PT 12.5 (11.1-14.7) Seconds APTT 27.5 (22.3-36.8) SECONDS CBC 01/28/21 Range/Units 11:04 WBC 6.2 (4.5-10.0) K/mm3 RBC 5.22 (4.6-6.20) M/mm3 Hgb 16.1 (14.0-18.0) g/dL Hct 47.5 (42.0-52.0) % Plt Count 189 (150-375) k/mm3 Lymph # (Auto) 1.72 (0.9-3.2) K/mm3 [place] # (Auto) 0.7 H (0.1-0.6) K/mm3 Eos # (Auto) 0.1 (0-0.3) K/mm3 Baso # (Auto) 0.0 (0.0-0.1) K/mm3 Comprehensive Metabolic Panel 01/28/21 Range/Units 11:04 Sodium 138 (137-145) mmol/L Potassium 3.9 (3.4-5.0) mmol/L Chloride 100 (98-107) mmol/L Carbon Dioxide 31 H (22-30) mmol/L BUN 28 H (9-20) mg/dL Creatinine 1.30 (0.7-1.3) mg/dL Glucose 123 H (75-110) mg/dL Calcium 9.4 (8.4-10.2) mg/dL Patient Weight 01/28/21 23:59 Weight 122.7 kg EKG on my personal review shows NSR rate 66, RBBB,
--- NOTE | 2021-01-28 17:25 | PC.NURSE ---
This patient, Saurabh Marquis, was admitted to IMU Room 201-01. Patient/family oriented to hospital policies and general routines including ID bracelet, bed and alarms, visiting hours, pain management, procedures, bathroom and other care routines, personal items, smoking policy, room service/diet, and visiting hours. Information on how to activate the Rapid Response Team has been discussed. Patient/Family are encouraged to report perceived risks to care and to ask questions if they do not understand what they are told or what they should do.
[2021-01-28 18:21] LABS: Troponin I < 0.012 ng/mL (0.000-0.034)
--- NOTE | 2021-01-28 18:40 | PM.IMHP ---
H&P: HPI History of Present Illness Date/Time: 01/28/21 18:40 this is of 55-year-old male patient who was discharged from this hospital on 01/22/2021. The patient had chest pain a with 3-troponins. He had a normal cardiac catheterization in 2019. His chest x-ray was found to be negative at that time. He has a longstanding chest pain and was thought to be either esophageal versus coronary spasms. He was started on Norvasc and it seemed to help. Patient was told to follow-up with cardiology. Patient's blood pressure appears to be maintained. His last A1c with his diabetes was 6.6. From home with chest pain. The patient stated that he had severe pain this morning and he thought he just went home and rested it would go away. The patient stated his more like a squeezing discomfort. He could be sitting still or having activity does not matter what the activity is. No correlation to food either he stated. He denies any acid reflux. The patient stated it is located over his left side of his chest any short of breath. It comes and goes and it feels like it is pulsating and squeezing. He denies any fever chills or any abdominal pain no nausea vomiting or diarrhea does not radiate to his left arm. He was seen by Dr. cabrera in the past. His last echo was May of 2020 with grade 1 diastolic dysfunction but the EF of 70%. Troponins are all negative. Rhythm right bundle-branch block. Inferior infarction age indeterminate. Cardiology has been consulted. The patient was given a GI cocktail. Patient stated he only has mild discomfort at this time. Loss of attenuation is single a basilar segmental pulmonary artery with evidence of respiratory motion at this location. Most likely artifact. Cannot exclude pulmonary embolism. The patient was injected with another 100 mL of Omnipaque solution and the previously loss of attenuation was confirmed be artifactual from respiratory motion. So no PE was noted. The patient is being admitted for observation on the date of service of 01/28/2021. Chief Complaint: Chest pain Review of Systems Review of Systems: All systems reviewed & are unremarkable except as noted in HPI and below Constitutional: Constitutional: Reports as per HPI and Reports no additional constitutional complaints Eyes: Eyes: Reports as per HPI and Reports no additional eye complaints ENT: Reports system reviewed and no additional complaints, except as documented and Reports Normal hearing present Cardiovascular: Cardiovascular: Reports no additional cardiovascular complaints Respiratory: Respiratory: Reports no additional respiratory complaints and Reports no additional respiratory complaints Gastrointestinal: Gastrointestinal: Reports as per HPI and Reports no additional gastrointestinal complaints Musculoskeletal: Musculoskeletal: Reports no additional musculoskeletal complaints Integumentary/Breasts: Skin/Breast: Reports system reviewed and no additional complaints, except as docu and Reports as per HPI Neurologic: Reports system reviewed and no additional complaints, except as documented, Reports as per HPI and Reports Normal hearing present Psychiatric: Psychiatric: Reports no additional psychiatric complaints and Reports as per HPI Endocrine: Endocrine: Reports no additional endocrine complaints Hematologic/Lymphatic: Hematologic/Lymphatic: Reports no additional hematologic/lymphatic complaints Allergic/Immunologic: Allergic/Immunologic: Reports no additional allergic/immunologic complaints [facility] Past Medical History Medical History Diabetes mellitus Diagnosed in September 2020 at which time his A1c was 6.9%. To avoid medication he has been trying to lose weight with most recent hemoglobin A1c of 6.7%. Essential hypertension Obstructive sleep apnea Untreated, patient does not tolerate CPAP. Right bundle branch block Surgical History Surgical History (Reviewed
[2021-01-28 20:49] LABS: Glucose Point of Care 199 (65-105)
[2021-01-28] MEDS: FAMOTIDINE 20 MG/2 ML VIAL IV PUSH (21:02)
--- NOTE | 2021-01-28 22:23 | PC.NURSE ---
up to [facility] with minimal dizziness and SOB.
--- NOTE | 2021-01-28 23:09 | ECG_ITS ---
Measurements Intervals [place] Rate: 51 P: 31 TX: 230 QRS: -10 QRSD: 157 T: -20 QT: 445 QTc: 412 Interpretive Statements SINUS BRADYCARDIA WITH FIRST DEGREE AV BLOCK RIGHT BUNDLE BRANCH BLOCK INFERIOR INFARCT, AGE INDETERMINATE BASELINE ARTIFACT- II, III, AVR, AVF ABNORMAL ECG Electronically Signed On 01-29-2021 7:04:10 CDT by Trevor Laws D.O.
[2021-01-28] MEDS: NITROGLYCERIN SL 0.4 MG TABLET (23:38)
--- NOTE | 2021-01-28 23:55 | PC.NURSE ---
Called to room by patient for c/o chest pain 02/23 at 2333. EKG obtained and Dr. Stinson notified. New orders received. NTG given SL as ordered at 2338. 2345 VSS, see documentation. States chest pain is gone. O2 on at 2 L per nasal cannula.
[2021-01-29] VITALS (15 sets, daily range): BP systolic 127–135; BP diastolic 73–78; PULSE 48–68; RESP 16–18; TEMP 36.6–36.8; O2SAT 96–100
--- NOTE | 2021-01-29 | ECHO_ITS ---
Patient Info Name: Saurabh Marquis Age: 55 years : 1965 Gender: Male Ht: 70 in Wt: 272 lbs BSA: 2.52 m2 HR: 58 bpm BP: 129 / 77 mmHg Technical Quality: Good Exam Date: 01/29/2021 7:19 AM Exam Location: [facility] Pulmonary Patient Status: Outpatient Admit Date: 01/28/2021 Staff Ordering Physician: Beti Mcgovern NP Automation Consultant: Neville Arellano RDCS, RT Attending Provider: Eagle Tate MD Referring Physician: Shaniqua PEREZ; Exam Type: CA echo doppler color flow Study Info Indications R07.89 - Other chest pain Complete two-dimensional, color flow and Doppler transthoracic echocardiogram is performed. Strain analysis performed. Summary 1. Complete two-dimensional, color flow and Doppler transthoracic echocardiogram is performed. Left Ventricle Left ventricular chamber dimension is normal. Left ventricular systolic function is normal, estimated at 60-65%. There is mildly increased left ventricular wall thickness. Left ventricular septal wall motion is normal. The left ventricular diastolic function is grade II diastolic dysfunction. Global longitudinal strain is normal at -19 %. Right Ventricle Right ventricular chamber dimension is normal. Right ventricular systolic function is normal. Left Atria Left atrial chamber dimension is mildly enlarged. Right Atria Right atrial chamber dimension is normal. Atrial Septum Intact interatrial septum visualized by color flow imaging. Aortic Valve The aortic valve is trileaflet. There is no aortic valve sclerosis. There is no aortic valve stenosis. There is no aortic valve regurgitation. Pulmonic Valve The pulmonic valve is normal. There is no pulmonic valve stenosis. There is no pulmonic regurgitation. Mitral Valve The mitral valve has normal leaflets. There is no mitral valve stenosis. There is no mitral valve regurgitation. Tricuspid Valve The tricuspid valve leaflets are normal. There is no significant tricuspid valve stenosis. There is no tricuspid valve regurgitation. Pericardium/Pleural The pericardium appears normal. There is no pericardial effusion. Inferior Vena Cava Normal inferior vena cava with >50% collapse upon inspiration consistent with normal right atrial pressure, 5 mmHg. Aorta The aortic root size at the sinus of Valsalva is normal. The prox ascending aorta size is normal. Tricuspid Valve Name Value Normal Estimated PAP/RSVP RA Pressure 5 mmHg <=5 Report Signatures
--- NOTE | 2021-01-29 | EST_ITS ---
Patient Info Name: Saurabh Marquis Age: 55 years : 1965 Gender: Male Ht: 70 in Wt: 272 lbs BSA: 2.52 m2 Exam Date: 01/29/2021 12:28 PM Exam Location: [facility] Stress Patient Status: Inpatient Admit Date: 01/28/2021 Staff Ordering Physician: Eagle Tate MD Attending Provider: Eagle Tate MD Exercise Technologist: Nevin Coy CT Exercise Physician: Brandi Lamb MD Exam Type: CA stress jack w NM Study Info Indications R07.9 - Chest pain, unspecified A regadenoson stress test was performed. Summary 1. EKG portion of the pharmacological stress test negative for ischemia by EKG criteria. Myocardial perfusion imaging is pending. Protocol: Lexiscan Stress ECG Details Stage: REST Duration (min): 1 min : 24 sec HR (bpm): 70 SBP (mmHg): 129 DBP (mmHg): 86 Stage: REST Duration (min): 20 min : 29 sec HR (bpm): 61 SBP (mmHg): 129 DBP (mmHg): 86 Stage: STAGE 1 Duration (min): 1 min : 0 sec HR (bpm): 65 SBP (mmHg): 127 DBP (mmHg): 80 Stage: RECOVERY Duration (min): 1 min : 0 sec HR (bpm): 76 SBP (mmHg): 127 DBP (mmHg): 80 Stage: RECOVERY Duration (min): 2 min : 0 sec HR (bpm): 68 SBP (mmHg): 127 DBP (mmHg): 80 Stage: RECOVERY Duration (min): 3 min : 0 sec HR (bpm): 69 SBP (mmHg): 127 DBP (mmHg): 80 Stage: RECOVERY Duration (min): 4 min : 0 sec HR (bpm): 70 SBP (mmHg): 83 DBP (mmHg): 66 Stage: RECOVERY Duration (min): 4 min : 48 sec HR (bpm): 70 SBP (mmHg): 87 DBP (mmHg): 61 Rest HR: 61 bpm Peak HR: 78 bpm Rest Sys BP: 129 mmHg Peak Sys BP: 127 mmHg Max Pred HR: 166 bpm % Max Pred HR: 47 % Target HR: 141 bpm Max RPP: 9,906 bpm*mmHg Total Time: 1 min : 0 sec Rest Weber BP: 86 mmHg Peak Weber BP: 80 mmHg Total Dose: 0.4 mg Resting ECG Sinus rhythm, right bundle-branch block. Stress ECG EKG after Lexiscan injection did not meet criteria for ischemia. Arrhythmias None. Report Signatures
[2021-01-29 00:29] LABS: Troponin I < 0.012 ng/mL (0.000-0.034)
[2021-01-29 04:49] LABS: Basophils Percent Auto 0.6 % (0.2-1.2); Eosinophils Absolute Auto 0.1 K/mm3 (0-0.3); Eosinophils Percent Auto 1.7 % (0-4.4); Hematocrit 47.9 % (42.0-52.0); Hemoglobin 15.9 g/dL (14.0-18.0); Immature Granulocyte Absolute 0.03 K/mm3 (0.00-0.031); Immature Granulocyte Percent A 0.5 % (0-0.5); Lymphocytes Absolute Auto 1.85 K/mm3 (0.9-3.2); Lymphocytes Percent Auto 29.2 % (18.3-44.2); Mean Corpuscular HGB Conc 33.2 g/dl (32-36); Mean Corpuscular Hemoglobin 30.8 pg (26-34); Mean Corpuscular Volume 92.6 fl (80-100); Mean Platelet Volume 10.5 fl (7.4-10.4); Monocytes Absolute Auto 0.7 K/mm3 (0.1-0.6); Monocytes Percent Auto 10.4 % (2.6-8.5); Neutrophils Absolute Auto 3.6 K/mm3 (1.3-6.7); Neutrophils Percent Auto 57.6 % (45.5-73.1); Platelet Count Result 179 k/mm3 (150-375); Red Blood Count 5.17 M/mm3 (4.6-6.20); Red Cell Distribution Width 12.8 % (11.5-14.5); White Blood Count 6.3 K/mm3 (4.5-10.0)
--- NOTE | 2021-01-29 04:54 | PCDIET ---
0420 standby assist to BRP. Tolerated activity without c/o SOB, chest pain or discomfort.
[2021-01-29 05:06] LABS: Anion Gap 6 mmol/L (8-16); Blood Urea Nitrogen 21 mg/dL (9-20); Calcium 8.9 mg/dL (8.4-10.2); Carbon Dioxide 28 mmol/L (22-30); Chloride 102 mmol/L (98-107); Estimated CRCL calculation 83 ml/min; Estimated Glomerular Filt Rate > 60; Glucose 101 mg/dL (75-110); Potassium 3.8 mmol/L (3.4-5.0); Sodium 136 mmol/L (137-145)
[2021-01-29 07:53] LABS: Glucose Point of Care 100 (65-105)
[2021-01-29] MEDS: FAMOTIDINE 20 MG/2 ML VIAL IV PUSH (08:48)
[2021-01-29] MEDS: ASPIRIN 325 MG TABLET PO (08:48)
[2021-01-29] MEDS: ENOXAPARIN 40 MG/0.4 ML SYRINGE SUB-Q (08:49)
[2021-01-29] MEDS: carvediloL 25 MG TABLET PO (08:49)
[2021-01-29] MEDS: amLODIPine BESYLATE 2.5 MG TABLET PO (08:49)
--- NOTE | 2021-01-29 08:49 | PM.CNCAR ---
Assessment and Plan Assessment and plan (1) Chest pain: Code(s): R07.9 - Chest pain, unspecified Status: Acute Assessment and Plan: Troponins negative, no ischemic changes on EKG. His cardiac catheterization reported to be normal 2019. Given increasing intensity of chest pain we will arrange for Lexiscan stress test to rule out ischemia. Patient underwent CTA thorax that showed small area of possible pulmonary embolism but most likely is artifactual. (2) Essential hypertension: Code(s): I10 - Essential (primary) hypertension Status: Acute Assessment and Plan: Blood pressure is controlled. Continue home medications (3) Right bundle branch block: Code(s): I45.10 - Unspecified right bundle-branch block Status: Acute Assessment and Plan: Old right bundle branch block unchanged from before with old inferior CO unchanged from before History of Present Illness History of Present Illness Consult date/time: Date of service: 01/29/21 08:49 Requesting physician: Joshua Muir DO Consult reason: chest pain Reason For Visit: chest pain Narrative: This is 55-year-old patient with past history of hypertension, normal cardiac catheterization 2019. Also history of obstructive sleep apnea not compliant with CPAP because of intolerance of mask. Patient was just discharged from the hospital about a week ago after admitted for chest pain. He stated that he had episode of central chest pressure with no aggravating factors that lasts for about 45 minutes and no radiation associated with shortness of breath. Relieved by sublingual nitroglycerin that was given in the emergency room. Denies nausea, vomiting, abdominal pain. He stated that after 2019 he continued to have episodes of chest pain but this time the chest pain is more intense and he had more shortness of breath with it. Denies other limb edema, fever, chills. White cell count 6 K, hemoglobin 15, troponins x4 negative, creatinine 1.3, chest x-ray reviewed and analyzed myself possible atelectasis lower lobes. The thorax shows small area of possible pulmonary embolism however it is most likely artifactual due to motion, bilateral atelectasis, hepatic steatosis. EKG reviewed analyzed myself shows sinus rhythm, right bundle branch block, possible old inferior CO. Previous echo May 2020 shows moderate LVH, ejection fraction 70%, mild right ventricular enlargement with normal right ventricular function. Review of Systems Constitutional: Constitutional: Denies chills, Denies fever(s) and Denies poor appetite Eyes: Eyes: Denies eye discharge, Denies loss of vision, Denies eye pain and Denies photophobia ENT: Denies dizziness, Denies epistaxis, Denies nasal congestion and Denies sore throat Cardiovascular: Cardiovascular: Reports chest pain, Denies syncope, Denies pedal edema, Denies leg edema, Denies palpitations, Reports dyspnea, Denies dyspnea on exertion and Denies orthopnea Respiratory: Respiratory: Denies cough, Reports dyspnea, Denies dyspnea on exertion and Denies wheezing Gastrointestinal: Gastrointestinal: Denies abdominal pain, Denies diarrhea, Denies nausea and Denies vomiting Genitourinary: Genitourinary: Denies hematuria, Denies genital lesions and Denies dysuria Musculoskeletal: Musculoskeletal: Denies arthralgias, Denies joint swelling and Denies numbness Integumentary/Breasts: Skin/Breast: Denies pruritus and Denies rash Neurologic: Denies dizziness, Denies syncope, Denies loss of vision and Denies numbness Psychiatric: Psychiatric: Denies anxiety and Denies depression Endocrine: Endocrine: Denies cold intolerance, Denies heat intolerance and Denies palpitations Hematologic/Lymphatic: Hematologic/Lymphatic: Denies easy bleeding and Denies easy bruising Allergic/Immunologic: Allergic/Immunologic: Denies urticaria and Denies wheezing PMFSH Past Medical History Medical History (Reviewed 01/29/21 @ 09:17 by Ankita
--- NOTE | 2021-01-29 11:36 | PC.NURSE ---
Patient to stress test and US via wheelchair.
[2021-01-29 11:56] LABS: Glucose Point of Care 91 (65-105)
--- NOTE | 2021-01-29 14:00 | PC.NURSE ---
Patient returned to room following ultrasound and stress test.
[2021-01-29] MEDS: ONDANSETRON INJ 4 MG/2 ML VIAL IV PUSH (14:32)
--- NOTE | 2021-01-29 16:11 | PCRCNOTE ---
PT STATES HE DOES NOT WEAR CPAP AT HOME AND DOES NOT WANT TO WEAR ONE HERE.
[2021-01-29 16:25] LABS: Glucose Point of Care 95 (65-105)
--- NOTE | 2021-01-29 17:10 | PM.DS ---
DS: Admitting Diagnosis Admitting Diagnosis Admitting Diagnosis: Chest pain DS: Discharge Diagnosis Discharge Diagnosis (1) Chest pain: Code(s): R07.9 - Chest pain, unspecified Status: Acute (2) Obstructive sleep apnea: Code(s): G47.33 - Obstructive sleep apnea (adult) (pediatric) Status: Acute (3) Diabetes mellitus: Code(s): E11.9 - Type 2 diabetes mellitus without complications Status: Acute (4) Essential hypertension: Code(s): I10 - Essential (primary) hypertension Status: Acute DS: Summary Hospital Course Reason for hospitalization: 55-year-old male with history of diabetes and hypertension who presents with complaints of chest pain. Please see H&P for details. Hospital Course: Patient presents with complaints of chest pain. Cardiac enzymes are negative x4. Chest x-ray showing mild atelectasis. EKG shows normal sinus rhythm, right bundle branch block and age-indeterminate inferior infarct. D-dimer was slightly positive and his CTA of the chest showed hepatic steatosis but no pulmonary emboli. Patient was given a GI cocktail and started on Pepcid. Abd ultrasound showing hepatic steatosis. The patient had a cardiac catheterization back in 2019 which was clear. Patient has hx of having chest berna and felt either having esophageal or coronary spasm and was started on Norvasc. Cardiology consulted and Lexiscan ordered. The patient has SHRUTHI and is noncompliant with NIV; he was strongly encouraged to use his CPAP machine. Last A1c 6.6. He was placed on Accu-Cheks. Echocardiogram showing EF of 60-65% with mildly increased LV wall thickness. No wall motion abnormalities. He had grade 2 diastolic dysfunction. Creatinine slightly elevated on admission. He is on chlorthalidone. Lisinopril and chlorthalidone were held. Creatinine improved. Blood pressure remained well controlled. We did resume his lisinopril at discharge but will continue to hold chlorthalidone at this time. May consider advancing amlodipine as blood pressure tolerates if he continues to have symptoms. Patient underwent Lexiscan stress test. The nuclear portion showed no definitive ischemia or infarct. No wall motion abnormalities. Cardiology felt patient could be discharged home with no changes in his medications. Patient will follow-up with cardiology as an outpatient. Patient overall did well and was able to be discharged home on 01/29/2021. Status at Discharge Cognitive/behavioral status at discharge: Stable Time Spent with Patient Time attestation: Total time spent providing and/or coordinating discharge services: 35 minutes Time spent: Greater than 30 minutes Exam Narrative: Exam Narrative: AF 98.3 134/78 66 16 100% Gen - NARD Chest - CTA bilaterally, nml RR CV - RRR S1/S2 Abd - Soft, NT/ND, Positive BS Ext - No pedal edema Neuro - Alert and oriented. Nonfocal exam. Psych - Nml mood and affect Skin - Warm and dry DS: Data Data Completed and Pending Labs on day of discharge: Labs from last 24 hours 01/29/21 01/29/21 01/29/21 15:38 11:35 07:42 WBC RBC Hgb Hct MCV MCH MCHC RDW Plt Count MPV Immature Gran % (Auto) Neut % (Auto) Lymph % (Auto) [place] % (Auto) Eos % (Auto) Baso % (Auto) Lymph # (Auto) [place] # (Auto) Eos # (Auto) Baso # (Auto) Abs Immat Gran (auto) Absolute Neuts (auto) Absolute Nucleated RBC Nucleated RBC % Sodium Potassium Chloride Carbon Dioxide Anion Gap BUN Creatinine Estim Creat Clear Calc Estimated GFR Glucose POC Capillary Glucose 95 91 100 Calcium Troponin I 01/29/21 01/29/21 01/28/21 04:25 04:25 23:45 WBC 6.3 RBC 5.17 Hgb 15.9 Hct 47.9 MCV 92.6 MCH 30.8 MCHC 33.2 RDW 12.8 Plt Count 179 MPV 10.5 H Immature Gran % (Auto) 0.5 Neut % (Auto) 57.6 Lymph % (Auto) 29.2 [place] % (Auto
== END 2021-01-29 18:01 | disposition home or self-care (01) ==
LOC: ANHED 16:26 → ANHIMU 16:42
PROVIDERS: Family Medicine; Internal Medicine; Admitting Provider Family Medicine; Emergency Provider Emergency Medicine; PCP Family Medicine; Visit Provider Nurse Practitioner
DX: R07.9 Chest pain, unspecified (principal); I45.10 Unspecified right bundle-branch block; I10 Essential (primary) hypertension; G47.33 Obstructive sleep apnea (adult) (pediatric); E11.9 Type 2 diabetes mellitus without complications
CPT/HCPCS: 36415; 71046; 71275; 76700; 78452; 80048; 82948; 84484; 85025; 85380; 85610; 85730; 93005; 93017; 93306; 96372; 96374; 96375; 99285; A9270; A9502; G0378; J1650; J2270; J2405; J2785; Q9967

== ENCOUNTER 2021-03-01 10:57 | Inpatient (IN) | payer OTHER, SELFPAY ==
[2021-03-01] VITALS (9 sets, daily range): BP systolic 162–194; BP diastolic 78–92; PULSE 59–82; RESP 20–22; TEMP 35.7–36.8; O2SAT 97–98; BMI 38.9; BMI 39.2
--- NOTE | ~2021-03-01 | XR_ITS ---
XR chest 2V DATE: 03/01/2021 11:18 INDICATION: Chest pain, shortness of breath TECHNIQUE: PA and lateral views COMPARISON: 01/28/2021 CT pulmonary scan FINDINGS: Heart size is within normal range. Minimal aortic unfolding. No hilar or mediastinal enlarg ement. No pulmonary infiltrate or consolidation, pleural effusion or pulmonary vascular congestion or pneumo thorax. Included skeletal structures are unremarkable. IMPRESSION: No active cardiopulmonary disease Reviewed, dictated and finalized at location A.
--- NOTE | 2021-03-01 11:02 | ECG_ITS ---
Measurements Intervals [place] Rate: 76 P: 51 RI: 191 QRS: -12 QRSD: 143 T: 11 QT: 426 QTc: 479 Interpretive Statements SINUS RHYTHM BORDERLINE AV CONDUCTION DELAY RIGHT BUNDLE BRANCH BLOCK INFERIOR INFARCT, AGE INDETERMINATE ABNORMAL ECG Electronically Signed On 03-01-2021 14:40:16 CDT by Trevor Laws D.O.
--- NOTE | 2021-03-01 11:23 | ED.CHESTPAIN ---
HPI - Chest Pain General Chief Complaint: Chest Pain Stated Complaint: CHEST PAIN, SOB Time Seen by Provider: 03/01/21 11:13 Source: RN notes reviewed History of Present Illness HPI narrative: Patient presents emergency department from home for chest pain. Patient states pain is located to left side the chest and described as a heaviness states pain does not radiate. Patient states pain began last night and is intermittent in nature nothing seems to make the pain better or worse he states associated shortness of breath. Denies any fevers or chills abdominal pain nausea vomiting or any other symptoms. Patient was recently admitted for chest pain and had a stress test that was negative per the patient Related Data Home Medications Medication Instructions Recorded Confirmed carvedilol 25 mg tablet 25 mg PO Q12H 09/05/19 01/28/21 chlorthalidone 25 mg tablet 25 mg PO DAILY 09/05/19 01/28/21 lisinopril 40 mg tablet 40 mg PO DAILY 09/05/19 01/28/21 Allergies Allergy/AdvReac Type Severity Reaction Status Date / Time No Known Allergies Allergy Verified 01/28/21 11:07 Review of Systems Review of Systems: Narrative: Gen.: Denies fevers or chills ENT: Denies congestion Respiratory: Reports shortness of breath or chest pain CV: See HPI GI: Denies abdominal pain nausea, emesis or diarrhea Musculoskeletal: Denies back pain or muscle pain Neuro: Denies numbness, tingling, weakness or focal weakness Skin: Denies rash Except as documented, all other systems reviewed and negative PMFSH Past Medical History Medical History Diabetes mellitus Diagnosed in September 2020 at which time his A1c was 6.9%. To avoid medication he has been trying to lose weight with most recent hemoglobin A1c of 6.7%. Essential hypertension Obstructive sleep apnea Untreated, patient does not tolerate CPAP. Right bundle branch block Surgical History Surgical History History of cardiac catheterization (~02/2019) Normal coronary arteries. Family History Family History Mother Diabetes mellitus Hypertension Family history of cardiovascular disease Sibling Hypertension Family history of cardiovascular disease Social History Social History (Reviewed 03/01/21 @ 11:24 by ARNOLDO Zapata Social History: Surrogate decision maker: Megan Puentes, mother. Code status: Full code. The patient is and lives with his daughter. He has 1 daughter. His mom Megan is a durable power corporate associate attorney for healthcare. The patient works and [employer] at [employer]. Smoking status: Never smoker Second hand tobacco smoke exposure: No Alcohol intake: current Drinks per week: 3 Substance use: never Substance use type: does not use Additional living arrangements comments: The patient lives in [place] with his daughter. Additional occupation/education comments: Works in [employer] at [employer]. Gender identity (if verbalized by the patient): Male Spiritual care concerns: No Exam Narrative: Exam Narrative: APPEARANCE: No acute distress, nontoxic, resting in bed EYES: EOMI HEENT: Normocephalic, atraumatic, OMM RESPIRATORY: No respiratory distress Clear to auscultation bilaterally with no rhonchi wheezing or rales. CARDIOVASCULAR: Regular rate and rhythm without murmurs rubs or gallops. ABDOMINAL: Soft, nontender, nondistended, no rebound or guarding MUSCULOSKELETAl: Moves all extremities. No clubbing, cyanosis or edema. NEURO: Awake and alert. Following commands, speech normal, no focal deficits SKIN:: Warm, dry. No rashes lesions or abrasions PSYCHIATRIC: Normal affect/mood, Course Course Emergency Course: Reviewed old records States chest pain is improved with morphine Discussed with Dr. Marte presentation work-up at this time recommends admission to hospitalist ser
[2021-03-01] MEDS: ASPIRIN 81 MG CHEWABLE TABLET 324 MG PO (11:27)
[2021-03-01] MEDS: MORPHINE SULFATE (*CRX) 4 MG/ML INJ IV PUSH (11:47)
[2021-03-01 12:00] LABS: Basophils Percent Auto 0.5 % (0.2-1.2); Eosinophils Absolute Auto 0.1 K/mm3 (0-0.3); Eosinophils Percent Auto 2.2 % (0-4.4); Hematocrit 44.3 % (42.0-52.0); Immature Granulocyte Absolute 0.02 K/mm3 (0.00-0.031); Immature Granulocyte Percent A 0.3 % (0-0.5); Lymphocytes Absolute Auto 1.38 K/mm3 (0.9-3.2); Lymphocytes Percent Auto 23.8 % (18.3-44.2); Mean Corpuscular HGB Conc 33.9 g/dl (32-36); Mean Corpuscular Hemoglobin 31.2 pg (26-34); Mean Corpuscular Volume 92.1 fl (80-100); Mean Platelet Volume 10.6 fl (7.4-10.4); Monocytes Absolute Auto 0.5 K/mm3 (0.1-0.6); Monocytes Percent Auto 9.3 % (2.6-8.5); Neutrophils Absolute Auto 3.7 K/mm3 (1.3-6.7); Neutrophils Percent Auto 63.9 % (45.5-73.1); Platelet Count Result 197 k/mm3 (150-375); Red Blood Count 4.81 M/mm3 (4.6-6.20); Red Cell Distribution Width 12.6 % (11.5-14.5); White Blood Count 5.8 K/mm3 (4.5-10.0)
[2021-03-01 12:12] LABS: Partial Thromboplastin Time 28.2 SECONDS (22.3-36.8); Prothrombin Time 13.3 Seconds (11.1-14.7)
[2021-03-01 12:17] LABS: Anion Gap 6 mmol/L (8-16); Blood Urea Nitrogen 17 mg/dL (9-20); Calcium 8.9 mg/dL (8.4-10.2); Carbon Dioxide 25 mmol/L (22-30); Chloride 105 mmol/L (98-107); Estimated CRCL calculation 107 ml/min; Estimated Glomerular Filt Rate > 60; Glucose 140 mg/dL (75-110); Potassium 4.2 mmol/L (3.4-5.0); Sodium 136 mmol/L (137-145)
[2021-03-01 12:24] LABS: Troponin I < 0.012 ng/mL (0.000-0.034)
--- NOTE | 2021-03-01 13:40 | PM.IMHP ---
H&P: HPI History of Present Illness Date/Time: 03/01/21 13:40 Chief Complaint: Chest pain. Narrative: This is a pleasant 55-year-old male with hypertension, diet-controlled diabetes, right bundle branch block, and untreated sleep apnea who presented to the emergency department earlier today from home with complaints of chest pain. He began having left anterolateral chest pain sometime yesterday while doing nothing in particular, which he describes as a heavy and squeezing discomfort. It has been intermittent since that time and this morning while sitting down watching television it was so severe and sharp that it ?took my breath away.? He sees no pattern as to when this occurs and he denies aggravating and alleviating factors. He has been admitted at this facility 2 times in the last couple of months with the same complaints and in fact he had a negative Lexiscan stress test on 01/29/2021. A previous cardiac catheterization in 2018 was unremarkable but it was thought perhaps he was having coronary spasms or esophageal spasms and he was started on amlodipine. At the time my evaluation he does not have any significant discomfort and he denies pleuritic pain, palpitations, orthopnea, PND, lower extremity edema, nausea, vomiting, and sweats. Review of Systems Review of Systems: Narrative: Twelve systems were reviewed with pertinent positives and negatives as per HPI. No cold or flu symptoms. He denies pleuritic pain. No history of venous thromboembolism. No musculoskeletal injury. Reports feeling tired a lot. Struggles with his CPAP and does not use it often. Reports quite a bit of stress. Except as documented, all other systems were reviewed and are negative. [facility] Past Medical History Medical History (Updated 03/01/21 @ 20:14 by Lina Lopez PA-C) Diabetes mellitus Diagnosed in September 2020 at which time his A1c was 6.9%. To avoid medication he has been trying to lose weight with most recent hemoglobin A1c of 6.6%. Essential hypertension Normal nuclear stress test (01/29/21) Obstructive sleep apnea Untreated, patient does not tolerate CPAP. Right bundle branch block Surgical History Surgical History History of cardiac catheterization (~02/2019) Normal coronary arteries. Family History Family History Mother Family history of cardiovascular disease Diabetes mellitus Hypertension Sibling Family history of cardiovascular disease Acute myocardial infarction Hypertension Grandparent Chronic obstructive pulmonary disease Diabetes mellitus Social History Social History (Updated 03/01/21 @ 20:14 by Lina Lopez PA-C) Social History: Surrogate decision maker: Megan Puentes, mother. Code status: Full code. Smoking status: Never smoker Second hand tobacco smoke exposure: No Alcohol intake: current Drinks per week: 2 Substance use: never Substance use type: does not use Additional living arrangements comments: The patient lives in [place] with his daughter. Additional occupation/education comments: Works in [employer] at [email or web address] Home Medications and Allergies Home Medications Medication Instructions Recorded Confirmed Type carvedilol 25 mg tablet 25 mg PO Q12H 09/05/19 03/01/21 History chlorthalidone 25 mg tablet 25 mg PO DAILY 09/05/19 03/01/21 History lisinopril 40 mg tablet 40 mg PO DAILY 09/05/19 03/01/21 History amlodipine 2.5 mg PO QAM #30 tablet 01/22/21 03/01/21 Rx aspirin [Children's Aspirin] 81 mg PO DAILY@0800 30 Days #30 01/22/21 03/01/21 Rx tablet famotidine [Pepcid] 20 mg PO Q12H 03/01/21 03/01/21 History Allergies Allergy/AdvReac Type Severity Reaction Status Date / Time No Known Allergies Allergy Verified 01/28/21 11:07 Vital Signs Vital Signs - 24 hr 03/01/21 11:02 03/01/21 14:01 03/01/21 16:00 Temperature 98.2 F
--- NOTE | 2021-03-01 14:18 | ADMGEN ---
This patient, Saurabh Marquis, was admitted to IMU Room 212-01. Patient/family oriented to hospital policies and general routines including ID bracelet, bed and alarms, visiting hours, pain management, procedures, bathroom and other care routines, personal items, smoking policy, room service/diet, and visiting hours. Information on how to activate the Rapid Response Team has been discussed. Patient/Family are encouraged to report perceived risks to care and to ask questions if they do not understand what they are told or what they should do.
[2021-03-01 14:35] LABS: Troponin I < 0.012 ng/mL (0.000-0.034)
[2021-03-01 16:48] LABS: Glucose Point of Care 85 (65-105)
--- NOTE | 2021-03-01 17:30 | PM.CNCAR ---
Assessment and Plan Assessment and plan (1) Chest pain: Code(s): R07.9 - Chest pain, unspecified Status: Acute Assessment and Plan: 3rd admission in a month for chest discomfort which has some elements of angina but is very atypical. Extensive workup as above. No obvious etiology. However the patient is suffering with pain and he would like to have a diagnosis and some relief. I will request Dr. Caldera repeat his cardiac catheterization to make sure there is no new CAD, are other coronary pathology. Check sed rate, rheumatoid factor, GARRETT. Trial of ibuprofen 600 mg t.i.d.. Baclofen p.r.n. (2) Essential hypertension: Code(s): I10 - Essential (primary) hypertension Status: Acute Assessment and Plan: Running high today but I think he has not had all of his medications. (3) Diabetes mellitus: Code(s): E11.9 - Type 2 diabetes mellitus without complications Status: Acute Assessment and Plan: Diet-controlled diabetes (4) SHRUTHI (obstructive sleep apnea): Code(s): G47.33 - Obstructive sleep apnea (adult) (pediatric) Status: Acute Assessment and Plan: Trying to get used to CPAP. History of Present Illness History of Present Illness Consult date/time: 03/01/21 17:30 Consult reason: chest pain Reason For Visit: Chest pain Narrative: Saurabh Marquis is a 55-year-old white male with a history of hypertension and obesity we were asked to see at the request of hospitalist for advice and opinion regarding his chest pain in consultation. We met the patient in 2019 when he was admitted with chest discomfort and shortness of breath. EKG showed old inferior TN so he underwent cardiac catheterization which showed normal coronary arteries. This is the patient's 3rd ER visit in about 6 weeks for chest pain. The patient has been having episodes of left upper chest pectoral squeezing pressing discomfort. When he gets severe gets sharp. It may radiate to the left shoulder. This can occur at rest or with activity and makes it hard to breathe. This been no diaphoresis. He was having some discomfort yesterday which eased up but did not resolve when he went to bed. This morning it became more intense, and ?hurt like hell? and he could not catch his breath so he came to the emergency room. It is nonpleuritic, non positional, nonreproducible. Nitroglycerin has helped a little but causes a headache. GI cocktail has helped a little in the past as well. No history of GI or esophageal problems. His troponins have been negative and EKGs unchanged. Amlodipine was added for possible coronary artery or esophageal vasospasm but it has not helped. CTA was negative. Lexiscan showed no reversible or fixed perfusion defects. Cardiac catheterization in February 2019 was reviewed, no coronary disease. He was last seen in our office on 02/19/2021 still with intermittent nonexertional chest pressure/squeezing, associated with shortness of breath. He has been feeling very tired. He is struggling to use his CPAP machine. He was assured that his chest discomfort was noncardiac and his amlodipine was increased to 5 mg a day to attain a more consistent good blood pressure. He was under lot of stress being a single father and counseling was recommended. Review of Systems Constitutional: Constitutional: Reports fatigue Eyes: Eyes: Reports no additional eye complaints ENT: Denies epistaxis and Denies nasal congestion Cardiovascular: Cardiovascular: Reports chest pain, Denies diaphoresis, Denies pedal edema, Denies leg edema and Reports lightheadedness (Occasionally a little dizzy standing up) Respiratory: Respiratory: Denies chest congestion, Reports dyspnea and Denies dyspnea on exerti
[2021-03-01 17:39] LABS: Troponin I 0.019 ng/mL (0.000-0.034)
[2021-03-01] MEDS: NITROGLYCERIN SL 0.4 MG TABLET SUBLINGUAL (18:25)
[2021-03-01] MEDS: IBUPROFEN 600 MG TABLET PO (18:32)
[2021-03-01 20:18] LABS: Erythrocyte Sedimentation Rate 20 mm/hr (0-20)
[2021-03-01 20:22] LABS: Rheumatoid Factor < 8.6 IU/ML (<12)
[2021-03-01 20:32] LABS: Glucose Point of Care 190 (65-105)
[2021-03-01] MEDS: FAMOTIDINE 20 MG TABLET PO (21:37)
[2021-03-01] MEDS: carvediloL 25 MG TABLET PO (21:37)
[2021-03-01] MEDS: BACLOFEN 5 MG TABLET PO (21:37)
[2021-03-02] VITALS (26 sets, daily range): BP systolic 129–166; BP diastolic 60–94; PULSE 45–74; RESP 12–98; TEMP 35.6–36.7; O2SAT 18–98; BMI 42.8
[2021-03-02 05:23] LABS: Basophils Percent Auto 0.7 % (0.2-1.2); Eosinophils Absolute Auto 0.2 K/mm3 (0-0.3); Eosinophils Percent Auto 2.7 % (0-4.4); Hematocrit 43.5 % (42.0-52.0); Hemoglobin 14.3 g/dL (14.0-18.0); Immature Granulocyte Absolute 0.01 K/mm3 (0.00-0.031); Immature Granulocyte Percent A 0.2 % (0-0.5); Lymphocytes Absolute Auto 1.72 K/mm3 (0.9-3.2); Lymphocytes Percent Auto 31.2 % (18.3-44.2); Mean Corpuscular HGB Conc 32.9 g/dl (32-36); Mean Corpuscular Hemoglobin 30.8 pg (26-34); Mean Corpuscular Volume 93.5 fl (80-100); Mean Platelet Volume 10.6 fl (7.4-10.4); Monocytes Absolute Auto 0.7 K/mm3 (0.1-0.6); Monocytes Percent Auto 11.8 % (2.6-8.5); Neutrophils Absolute Auto 2.9 K/mm3 (1.3-6.7); Neutrophils Percent Auto 53.4 % (45.5-73.1); Platelet Count Result 162 k/mm3 (150-375); Red Blood Count 4.65 M/mm3 (4.6-6.20); Red Cell Distribution Width 12.6 % (11.5-14.5); White Blood Count 5.5 K/mm3 (4.5-10.0)
[2021-03-02] MEDS: BACLOFEN 5 MG TABLET PO ×3 (06:05→21:24)
[2021-03-02 06:10] LABS: Alanine Aminotransferase 19 U/L (4-50); Albumin Level 3.7 g/dL (3.5-5.1); Alkaline Phosphatase 44 U/L (38-126); Anion Gap 4 mmol/L (8-16); Aspartate Amino Transferase 32 U/L (17-59); Bilirubin,Total 0.7 mg/dL (0.2-1.3); Blood Urea Nitrogen 16 mg/dL (9-20); Calcium 8.6 mg/dL (8.4-10.2); Carbon Dioxide 26 mmol/L (22-30); Chloride 105 mmol/L (98-107); Estimated CRCL calculation 100 ml/min; Estimated Glomerular Filt Rate > 60; Glucose 102 mg/dL (75-110); Potassium 4.3 mmol/L (3.4-5.0); Sodium 135 mmol/L (137-145)
--- NOTE | 2021-03-02 08:29 | PC.NURSE ---
Spoke with lab and they confirmed Rheumatoid Factor Group is the marcelino as Rheumatoid Factor.
[2021-03-02 08:31] LABS: Glucose Point of Care 110 (65-105)
[2021-03-02] MEDS: lisinopriL 20 MG TABLET 40 MG PO (09:14)
[2021-03-02] MEDS: ASPIRIN 81 MG CHEWABLE TABLET PO (09:15)
[2021-03-02] MEDS: amLODIPine BESYLATE 2.5 MG TABLET PO (09:15)
[2021-03-02] MEDS: carvediloL 25 MG TABLET PO ×2 (09:15→21:24)
[2021-03-02] MEDS: FAMOTIDINE 20 MG TABLET PO ×2 (09:22→21:24)
[2021-03-02] MEDS: CHLORTHALIDONE 25 MG TABLET PO (09:22)
[2021-03-02 09:26] LABS: Rheumatoid Factor < 8.6 IU/ML (<12)
[2021-03-02] MEDS: SODIUM CHLORIDE 0.9% IV 500 ML 100 ML IV CONT (09:30)
[2021-03-02 10:06] LABS: Erythrocyte Sedimentation Rate 22 mm/hr (0-20)
--- NOTE | 2021-03-02 11:00 | WPDMODSED ---
Moderate Sedation Note-Pt Data Patient Data Diagnosis: chest pain etiology unknown Present Complaint: recurrent chest pain Procedure to be performed/Plan: left heart catheterization Allergies Allergy/AdvReac Type Severity Reaction Status Date / Time No Known Allergies Allergy Verified 01/28/21 11:07 Home Medications Medication Instructions Recorded Confirmed Type carvedilol 25 mg tablet 25 mg PO Q12H 09/05/19 03/01/21 History chlorthalidone 25 mg tablet 25 mg PO DAILY 09/05/19 03/01/21 History lisinopril 40 mg tablet 40 mg PO DAILY 09/05/19 03/01/21 History amlodipine 2.5 mg PO QAM #30 tablet 01/22/21 03/01/21 Rx aspirin [Children's Aspirin] 81 mg PO DAILY@0800 30 Days #30 01/22/21 03/01/21 Rx tablet famotidine [Pepcid] 20 mg PO Q12H 03/01/21 03/01/21 History Current Medications: Active Medications Amlodipine Besylate (Amlodipine Besylate 2.5 Mg Tablet) 2.5 mg PO QAM [facility] Last Admin: 03/02/21 09:15 Dose: 2.5 mg Documented by: Aspirin (Aspirin 81 Mg Chewable Tablet) 81 mg PO DAILY@0800 [facility] Last Admin: 03/02/21 09:15 Dose: 81 mg Documented by: Baclofen (Baclofen 5 Mg Tablet) 5 mg PO Q8HR [facility] Last Admin: 03/02/21 06:05 Dose: 5 mg Documented by: Carvedilol (Carvedilol 25 Mg Tablet) 25 mg PO Q12H [facility] Last Admin: 03/02/21 09:15 Dose: 25 mg Documented by: Chlorthalidone (Chlorthalidone 25 Mg Tablet) 25 mg PO DAILY [facility] Last Admin: 03/02/21 09:22 Dose: 25 mg Documented by: Famotidine (Famotidine 20 Mg Tablet) 20 mg PO Q12H [facility] Last Admin: 03/02/21 09:22 Dose: 20 mg Documented by: Sodium Chloride (Normal Saline Iv) 500 mls @ 100 mls/hr IV CONT .Q5H [facility] Last Admin: 03/02/21 09:30 Dose: 100 mls/hr Documented by: Ibuprofen (Ibuprofen 600 Mg Tablet) 600 mg PO TID [facility] Last Admin: 03/02/21 09:31 Dose: Not Given Documented by: Lisinopril (Lisinopril 20 Mg Tablet) 40 mg PO DAILY [facility] Last Admin: 03/02/21 09:14 Dose: 40 mg Documented by: Nitroglycerin (Nitroglycerin Sl 0.4 Mg Tablet) 0.4 mg SUBLINGUAL Q5MIN PRN PRN Reason: Chest Pain Last Admin: 03/01/21 18:25 Dose: 0.4 mg Documented by: Sedation/Anesthesia: No previous sedation/anesthesia problems (including family history). [facility] Past Medical History Medical History (Updated 03/01/21 @ 20:14 by Lina Lopez PA-C) Diabetes mellitus Diagnosed in September 2020 at which time his A1c was 6.9%. To avoid medication he has been trying to lose weight with most recent hemoglobin A1c of 6.6%. Essential hypertension Normal nuclear stress test (01/29/21) Obstructive sleep apnea Untreated, patient does not tolerate CPAP. Right bundle branch block Surgical History Surgical History History of cardiac catheterization (~02/2019) Normal coronary arteries. Family History Family History Mother Family history of cardiovascular disease Diabetes mellitus Hypertension Sibling Family history of cardiovascular disease Acute myocardial infarction Hypertension Grandparent Chronic obstructive pulmonary disease Diabetes mellitus Social History Social History (Updated 03/01/21 @ 20:14 by Lina Lopez PA-C) Social History: Surrogate decision maker: Megan Puentes, mother. Code status: Full code. Smoking status: Never smoker Second hand tobacco smoke exposure: No Alcohol intake: current Drinks per week: 2 Substance use: never Substance use type: does not use Additional living arrangements comments: The patient lives in [place] with his daughter. Additional occupation/education comments: Works in [employer] at [employer]. Mod Sed Physical Exam Physical Exam Pre Procedural Exam: Normal: Neck, Throat, Airway, Lungs, Heart Size, Heart Rate, Heart Rhythm and Extremities and Variation: Appearance ( overweight white male no apparent distress) Hours since solid foods: 12 Hours sin
--- NOTE | 2021-03-02 11:03 | P.PCNCC_ITS ---
Cardiac Cath Procedure Note Date of procedure:: 03/02/21 Performing physician:: Saurabh Caldera MD Indication:: chest pain Brief clinical history:: this is a 55-year-old man who is known not to have coronary artery disease based on a normal angiogram 2 years ago. He has recently been hospitalized several times for evaluation of chest pain. Nuclear stress testing done recently was normal. Because of recurrent admission a follow-up angiogram has been recommended. Procedure Procedure performed:: Coronary angiogram left ventriculogram Angio-Seal to right femoral artery Sedation/Medication given:: fentanyl 100 mg Versed 2 mg case start time 1123 a.m. case end time 11:44 a.m. sedation provided by Monie Ritchie RN, trained observer Access site:: right femoral artery Estimated blood loss:: 20-30 cc Procedure note:: patient was brought to the cardiac catheterization lab in the postabsorptive state where the right femoral triangle was prepped fairly and draped in the usual fashion anesthesia was provided with 1% lidocaine infiltrated locally. Using Seldinger technique 5 [place] vascular sheath was placed into the femoral artery after this left heart catheterization took place. I used a 5 [place] angled pigtail catheter to measure left-sided hemodynamics and to inject LV g projection. After this the left coronary artery was injected using a standard 5 [place] FL4 catheter the right coronary injected 5 [place] JR4 catheter. The cine angiograms were then reviewed. Angiogram was done of the femoral artery through the sheath which Angio-Seal was deployed with a good hemostatic result. The patient had no procedural complications and left the manager lab with no evidence of a groin hematoma. Findings:: Hemodynamics: Central aortic pressure is 140/78 left ventricle 140 over to end-diastolic pressure 14 there is no gradient on pullback across the aortic valve. Left ventricle: The LV is normal in size all segments contract well the global ejection fraction is 50-55% with no regional wall motion abnormalities. The left main coronary artery is nicely patent the LAD is a moderate caliber before the apex. The LAD branches are angiographically smooth and normal in appearance the circumflex is a moderate caliber artery giving rise to the marginal branch is the circumflex system is smooth and angiographically normal in appearance. The right coronary artery is a huge vessel that is dominant to the posterior circulation and the posterolateral wall. The right coronary artery is smooth and angiographically normal in appearance Conclusion:: 1. right coronary dominant circulation with no evidence of coronary disease 2. normal left ventricular systolic function 3. patient has now had 2- coronary angiograms. His symptomatology is clearly not mediated by coronary disease [facility]abh Caldera MD [facility]
[2021-03-02] MEDS: SODIUM CHLORIDE 0.9% IV 1,000 ML 125 ML IV CONT (13:46)
[2021-03-02] MEDS: IBUPROFEN 600 MG TABLET PO (16:34)
[2021-03-02 16:57] LABS: Glucose Point of Care 155 (65-105)
--- NOTE | 2021-03-02 17:12 | PM.IMPN ---
Progress Note: A&P Assessment and Plan (1) Chest pain: Code(s): R07.9 - Chest pain, unspecified Status: Acute Assessment and Plan: The patient presents to the hospital once again with left-sided chest pain which remains atypical and he has had a previous extensive workup from 2 prior hospitalizations. Amlodipine was added due to the possibility of coronary vasospasms however he continues to have pain without any improvement. Dr. Marte (cardiology) has been consulted and she recommends repeat cardiac catheterization this afternoon. Other etiologies should be sought and GARRETT, rheumatoid factor, and sed rate have been ordered and are pending. She wishes to trial ibuprofen 600 milligrams t.i.d. and baclofen is available p.r.n. to see if that may be of some benefit. As mentioned he does have quite a bit of stress which may be playing a factor. GI etiology seems less likely, will have him on PPI while here. Continue monitoring. (2) Essential hypertension: Code(s): I10 - Essential (primary) hypertension Status: Acute Assessment and Plan: Blood pressure elevated this morning before medications were given, 161/94. Continue monitoring and recommend cardiology making adjustments if necessary. (3) Diabetes mellitus: Code(s): E11.9 - Type 2 diabetes mellitus without complications Status: Acute Assessment and Plan: Recent hemoglobin A1c was 6.6% and he continues to try to eat better and lose weight. Continue checking glucose ACHS. Hypoglycemic protocol in place. Sliding scale insulin ordered. (4) Obstructive sleep apnea: Code(s): G47.33 - Obstructive sleep apnea (adult) (pediatric) Status: Acute Assessment and Plan: Once again we encouraged the patient to try to use his CPAP more often as it is important for his heart and will help with his fatigue. Time Spent With Patient Time with patient: 25 - 35 minutes Subjective Date/time seen: 03/02/21 17:12 Interval history: Date of service 03/02/2021: Patient still reports intermittent chest pain. Patient denies any shortness of breath at this time. He denies any heartburn issues. Denies any fevers, chills, cough, nausea, vomiting, abdominal pain, leg swelling, calf pain or any other symptoms at this time. Review of Systems Review of Systems: All systems reviewed & are unremarkable except as noted in HPI and below Exam Narrative: Exam Narrative: General: 55-year-old man sitting up in bed talking to the nurse. Appears comfortable. In no acute distress. Skin: No jaundice or cyanosis. Good skin turgor. Neck: Full range of motion. Supple. Respiratory: Lungs are clear to auscultation bilaterally. No bony chest wall tenderness. Cardiovascular: The heart has a regular rate and rhythm without murmur. No carotid bruits. Lower extremities: No lower extremity edema. Distal pulses are easily palpated. No calf tenderness to palpation. Gastrointestinal: The abdomen is soft, nontender and nondistended with active bowel sounds. Psychiatric: Lucid and oriented. Memory intact. Neurologic: No focal deficits. Speech is clear. No facial drooping. Objective Data Vital Signs Vital Signs: Vital Signs - 24 hr 03/01/21 18:00 03/01/21 20:00 03/01/21 21:37 Temperature 97.2 F L Pulse Rate 62 64 64 Respiratory Rate 20 Blood Pressure 162/79 H Pulse Oximetry 97 03/01/21 22:00 03/01/21 23:53 03/02/21 00:00 Temperature Pulse Rate 70 59 L 51 L Respiratory Rate 20 20 Blood Pressure 173/91 H Pulse Oximetry 98 98 03/02/21 02:00 03/02/21 04:00 03/02/21 06:00 Temperature 97.4 F L Pulse Rate 59 L 62 56 L Respiratory Rate 20 Blood Pressure 157/70 H Pulse Oximetry 98 03/02/21 08:00
[2021-03-02 20:21] LABS: Glucose Point of Care 132 (65-105)
--- NOTE | 2021-03-02 23:25 | PC.NURSE ---
patient transferred to [address] [place] [address]. report given to jarrod russ.
[2021-03-03] VITALS (10 sets, daily range): BP systolic 130–143; BP diastolic 68–84; PULSE 55–64; RESP 18–20; TEMP 36–36.7; O2SAT 94–99
--- NOTE | 2021-03-03 04:30 | PC.NURSE ---
RT GROIN DRESSING INTACT WITHOUT REDNESS OR BRUISING AT SITE, PULSES PALPABLE
[2021-03-03] MEDS: BACLOFEN 5 MG TABLET PO ×3 (06:16→20:42)
[2021-03-03] MEDS: amLODIPine BESYLATE 2.5 MG TABLET PO (07:54)
[2021-03-03] MEDS: carvediloL 25 MG TABLET PO ×2 (07:54→20:42)
[2021-03-03] MEDS: ASPIRIN 81 MG CHEWABLE TABLET PO (07:54)
[2021-03-03] MEDS: CHLORTHALIDONE 25 MG TABLET PO (07:55)
[2021-03-03] MEDS: IBUPROFEN 600 MG TABLET PO ×3 (07:55→16:22)
[2021-03-03] MEDS: lisinopriL 20 MG TABLET 40 MG PO (07:55)
[2021-03-03] MEDS: FAMOTIDINE 20 MG TABLET PO ×2 (07:55→20:42)
[2021-03-03 08:40] LABS: Glucose Point of Care 107 (65-105)
[2021-03-03] MEDS: NITROGLYCERIN SL 0.4 MG TABLET SUBLINGUAL (11:00)
--- NOTE | 2021-03-03 14:01 | PM.IMPN ---
Progress Note: A&P Assessment and Plan (1) Chest pain: Code(s): R07.9 - Chest pain, unspecified Status: Acute Assessment and Plan: The patient presents to the hospital once again with left-sided chest pain which remains atypical Pt had a negative heart cath still complains of chest pains, had to have NTG. Pt to be monitored today and hopeful DC tomorrow. Long discussion with patient tired of recurrent chest pain, I will consult GI to rule out Gi causes moises as he has a history of GERD. Consult GI (2) Essential hypertension: Code(s): I10 - Essential (primary) hypertension Status: Acute Assessment and Plan: Bp is stable at 143/72 (3) Diabetes mellitus: Code(s): E11.9 - Type 2 diabetes mellitus without complications Status: Acute Assessment and Plan: Recent hemoglobin A1c was 6.6% Adviced to do better with weight loss and excercise (4) Obstructive sleep apnea: Code(s): G47.33 - Obstructive sleep apnea (adult) (pediatric) Status: Acute Assessment and Plan: CPAP at night Additional Plan The patient presents to the hospital once again with left-sided chest pain.More likely atypical chest pain given his heart cath was normal. Pt encouraged to take ibuprofen await connective tissue panel and Rheumatoid factor. Subjective Date/time seen: 03/03/21 14:01 Interval history: 5-year-old male with hypertension, diet-controlled diabetes, right bundle branch block, and untreated sleep apnea who presented to the emergency department earlier today from home with complaints of chest pain. Heart cath is clear pt had bout of chest pain today. Awaiting to see cardiology was given NTG today. Long discussion with patient tired of recurrent chest pain, I will consult GI to rule out Gi causes moises as he has a history of GERD. Review of Systems Review of Systems: All systems reviewed & are unremarkable except as noted in HPI and below Exam Const: General: cooperative and healthy appearing; No in distress Nutritional Appearance: overweight Orientation/consciousness: oriented to person HENMT: Head: normal to inspection Resp: Effort & Inspection: no respiratory distress Auscultation: no rhonchi and no wheezes Cardio: Rate: regular rate Rhythm: regular rhythm GI: Inspection: normal to inspection GI Palp: No abdominal tenderness, No Guarding due to palpation present (GI) and No Hepatomegaly present Auscultation: normal bowel sounds Neuro: General: oriented to person Objective Data Vital Signs Vital Signs: Vital Signs - 24 hr 03/02/21 14:45 03/02/21 16:00 03/02/21 16:41 Temperature 35.9 C L 35.7 C L Pulse Rate 66 66 67 Respiratory Rate 18 22 H Blood Pressure 137/60 142/72 H Pulse Oximetry 95 98 95 03/02/21 16:45 03/02/21 17:45 03/02/21 18:00 Temperature 36.0 C L 35.9 C L Pulse Rate 68 59 L 57 L Respiratory Rate 17 20 Blood Pressure 137/77 134/75 Pulse Oximetry 94 96 03/02/21 20:00 03/02/21 21:24 03/02/21 22:00 Temperature 36.7 C Pulse Rate 74 74 58 L Respiratory Rate 20 Blood Pressure 166/78 H Pulse Oximetry 97 03/02/21 23:35 03/03/21 00:00 03/03/21 04:00 Temperature 36.4 C 36.6 C 36.7 C Pulse Rate 65 55 L 58 L Respiratory Rate 16 18 20 Blood Pressure 148/82 H 142/84 H 135/68 Pulse Oximetry 98 99 97 03/03/21 07:54 03/03/21 10:00 03/03/21 10:45 Temperature 36.0 C L Pulse Rate 58 L 63 62 Respiratory Rate 20 Blood Pressure 137/76 143/72 H Pulse Oximetry 97 Intake/Output Intake/Output: Intake & Output 02/28/21 03/01/21 03/02/21 03/03/21 23:59 23:59 23:59 23:59 Intake Total 840 640 Output Total 250 950 Balance -250 -110 640 Meds/Results Medications: Active Medications Generic Name Dose Route S
[2021-03-03 17:42] LABS: Glucose Point of Care 102 mg/dl (65-105)
[2021-03-03 20:46] LABS: Glucose Point of Care 135 mg/dl (65-105)
[2021-03-04] VITALS (9 sets, daily range): BP systolic 121–170; BP diastolic 55–98; PULSE 55–67; RESP 16–29; TEMP 35.8–36.6; O2SAT 94–100
[2021-03-04] MEDS: BACLOFEN 5 MG TABLET PO ×2 (06:10→12:52)
[2021-03-04 07:59] LABS: Glucose Point of Care 113 mg/dl (65-105)
--- NOTE | 2021-03-04 08:25 | WPDGICN ---
Assessment and Plan Assessment and plan (1) Chest pain: Code(s): R07.9 - Chest pain, unspecified Status: Acute Assessment and Plan: Chest pain of uncertain origin appears to be atypical in nature. Recent cardiac catheterization is negative. History does not immediately suggest a GI etiology. Because of ongoing pain and request for an EGD this will be performed today to exclude any obvious inflammation in the esophagus or stomach. Trial of oral liquid antacids may be of some benefit as well. Plan to proceed with EGD to exclude GI etiology today. Pain remains atypical and not of any specific GI origin historically. GI Consult Note Consult date/time: 03/04/21 08:25 HPI: Saurabh Marquis is a 55 year old male I am asked to see at the request of the hospitalist service. Patient has had episodes of atypical chest pain. Cardiac catheterization was unremarkable yesterday. I was asked to see the patient to exclude possible GE reflux disease. Patient denies any association of pain with diet. States pain occurs intermittently under the left breast and a squeezing fashion. May last for 15 minutes. Not related to diet or activity. He has not tried antacids to alleviate the pain. He denies any burning nature to pain. He has had no weight loss. He a empirically was given Pepcid with no change in symptoms over the last 1 month. States he was admitted the hospital 1 month ago. Admitted with this pain in the left chest area. Patient's family history is noncontributory reports no recent travel. An EGD is requested to exclude organic disease in the esophagus in stomach given his ongoing discomfort in the chest. Review of Systems Review of Systems: All systems reviewed & are unremarkable except as noted in HPI and below [facility] Past Medical History Medical History (Updated 03/01/21 @ 20:14 by Lina Lopez PA-C) Diabetes mellitus Diagnosed in September 2020 at which time his A1c was 6.9%. To avoid medication he has been trying to lose weight with most recent hemoglobin A1c of 6.6%. Essential hypertension Normal nuclear stress test (01/29/21) Obstructive sleep apnea Untreated, patient does not tolerate CPAP. Right bundle branch block Surgical History Surgical History History of cardiac catheterization (~02/2019) Normal coronary arteries. Family History Family History Mother Family history of cardiovascular disease Diabetes mellitus Hypertension Sibling Family history of cardiovascular disease Acute myocardial infarction Hypertension Grandparent Chronic obstructive pulmonary disease Diabetes mellitus Social History Social History (Updated 03/01/21 @ 20:14 by Lina Lopez PA-C) Social History: Surrogate decision maker: Megan Puentes, mother. Code status: Full code. Smoking status: Never smoker Second hand tobacco smoke exposure: No Alcohol intake: current Drinks per week: 2 Substance use: never Substance use type: does not use Additional living arrangements comments: The patient lives in [place] with his daughter. Additional occupation/education comments: Works in [employer] at [employer] Home Medications and Allergies Home Medications Medication Instructions Recorded Confirmed Type carvedilol 25 mg tablet 25 mg PO Q12H 09/05/19 03/01/21 History chlorthalidone 25 mg tablet 25 mg PO DAILY 09/05/19 03/01/21 History lisinopril 40 mg tablet 40 mg PO DAILY 09/05/19 03/01/21 History aspirin [Children's Aspirin] 81 mg PO DAILY@0800 30 Days #30 01/22/21 03/01/21 Rx tablet famotidine [Pepcid] 20 mg PO Q12H 03/01/21 03/01/21 History amlodipine 5 mg tablet 5 mg PO DAILY #30 tablet 03/02/21 Rx Allergies Allergy/AdvReac Type Severity Reaction Status Date / Time No Known Allergies Allergy Verified 01/28/21 11:07 Lizzie
[2021-03-04 09:19] LABS: Glucose Point of Care 134 mg/dl (65-105)
--- NOTE | 2021-03-04 09:19 | WPDANESEPPF ---
Anes - Initial Pre Proc Eval Procedure: Operation Date: 03/02/21 11:00 Proposed Procedures p Coronary Cath W/Grafts and LV - Saurabh Caldera MD Operation Date: 03/04/21 12:00 Proposed Procedures p Esophagogastroduodenoscopy - John Danielson MD Date/Time: 03/04/21 09:19 Surgeon: Latonya Dixon PA-C Pre Op Diagnosis: Chest pain Patient Data Age: 55 Gender: M Height: 1.7 m Weight: 119.6 kg Last Vital Signs Temp 36.3 C L 03/04/21 04:00 Pulse 66 03/04/21 04:00 Resp 20 03/04/21 04:00 BP 140/63 03/04/21 04:00 Pulse Ox 98 03/04/21 04:00 Allergies Allergy/AdvReac Type Severity Reaction Status Date / Time No Known Allergies Allergy Verified 03/04/21 10:59 Home Medications Medication Instructions Recorded Confirmed Type carvedilol 25 mg tablet 25 mg PO Q12H 09/05/19 03/01/21 History chlorthalidone 25 mg tablet 25 mg PO DAILY 09/05/19 03/01/21 History lisinopril 40 mg tablet 40 mg PO DAILY 09/05/19 03/01/21 History aspirin [Children's Aspirin] 81 mg PO DAILY@0800 30 Days #30 01/22/21 03/01/21 Rx tablet famotidine [Pepcid] 20 mg PO Q12H 03/01/21 03/01/21 History amlodipine 5 mg tablet 5 mg PO DAILY #30 tablet 03/02/21 Rx Laboratory Tests 03/03/21 03/03/21 03/03/21 12:00 17:26 20:42 POC Capillary Glucose 134 mg/dl H mg/dl 102 mg/dl mg/dl 135 mg/dl H mg/dl (65-105) (65-105) (65-105) 03/04/21 07:41 POC Capillary Glucose 113 mg/dl H mg/dl (65-105) Other Studies: Findings:: Hemodynamics: Central aortic pressure is 140/78 left ventricle 140 over to end-diastolic pressure 14 there is no gradient on pullback across the aortic valve. Left ventricle: The LV is normal in size all segments contract well the global ejection fraction is 50-55% with no regional wall motion abnormalities. The left main coronary artery is nicely patent the LAD is a moderate caliber before the apex. The LAD branches are angiographically smooth and normal in appearance the circumflex is a moderate caliber artery giving rise to the marginal branch is the circumflex system is smooth and angiographically normal in appearance. The right coronary artery is a huge vessel that is dominant to the posterior circulation and the posterolateral wall. The right coronary artery is smooth and angiographically normal in appearance Conclusion:: 1. right coronary dominant circulation with no evidence of coronary disease 2. normal left ventricular systolic function 3. patient has now had 2- coronary angiograms. His symptomatology is clearly not mediated by coronary disease Patient hx anesthesia problems: none Family hx anesthesia problems: none [facility] Past Medical History Medical History (Updated 03/04/21 @ 09:22 by Kenny Vázquez MD) Chest pain Diabetes mellitus Diagnosed in September 2020 at which time his A1c was 6.9%. To avoid medication he has been trying to lose weight with most recent hemoglobin A1c of 6.6%. Essential hypertension Morbid obesity with BMI of 40.0-44.9, adult Normal nuclear stress test (01/29/21) Obstructive sleep apnea Untreated, patient does not tolerate CPAP. Right bundle branch block Right bundle branch block Surgical History Surgical History History of cardiac catheterization (~02/2019) Normal coronary arteries. Family History Family History Mother Family history of cardiovascular disease Diabetes mellitus Hypertension Sibling Family history of cardiovascular disease Acute myocardial infarction Hypertension Grandparent Chronic obstructive pulmonary disease Diabetes mellitus Social History Social History (Updated 03/01/21 @ 20:14 by Lina Lopez PA-C) Social History: Surrogate decision maker: Megan Puentes, mother. Code status: Full code. Smoking status: Never smoker Second hand tob
[2021-03-04] MEDS: LACTATED RINGERS 1,000 ML 150 ML IV CONT (11:01)
[2021-03-04 11:06] LABS: Glucose Point of Care 105 mg/dl (65-105)
[2021-03-04 12:18] LABS: Glucose Point of Care 87 mg/dl (65-105)
[2021-03-04 12:32] LABS: Glucose Point of Care 88 mg/dl (65-105)
[2021-03-04] MEDS: ASPIRIN 81 MG CHEWABLE TABLET PO (12:51)
[2021-03-04] MEDS: amLODIPine BESYLATE 2.5 MG TABLET PO (12:51)
[2021-03-04] MEDS: carvediloL 25 MG TABLET PO (12:51)
[2021-03-04] MEDS: IBUPROFEN 600 MG TABLET PO (12:52)
[2021-03-04] MEDS: CHLORTHALIDONE 25 MG TABLET PO (12:52)
[2021-03-04] MEDS: FAMOTIDINE 20 MG TABLET PO (12:52)
[2021-03-04] MEDS: lisinopriL 20 MG TABLET 40 MG PO (12:52)
--- NOTE | 2021-03-04 13:39 | PM.DS ---
DS: Admitting Diagnosis Admitting Diagnosis Admitting Diagnosis: Chest pain DS: Discharge Diagnosis Discharge Diagnosis (1) Chest pain: Code(s): R07.9 - Chest pain, unspecified Status: Acute Assessment and Plan: The patient presents to the hospital once again with left-sided chest pain which remains atypical Pt had a negative heart cath. Pt had normal EGD Ok for discharge. Reassured patient recent bereavement of his father and previously lost his . Alot of anxiety going on for the patient. Pt can use baclofen for chest spasm. I will discharge him with short supply of xanax for anxiety. Alot of anxiety at home with daughter, and recent bereavement. (2) Essential hypertension: Code(s): I10 - Essential (primary) hypertension Status: Acute Assessment and Plan: Bp is stable at 143/72 runs high when patient is anxious (3) Diabetes mellitus: Code(s): E11.9 - Type 2 diabetes mellitus without complications Status: Acute Assessment and Plan: Recent hemoglobin A1c was 6.6% Adviced to do better with weight loss and exercise (4) Obstructive sleep apnea: Code(s): G47.33 - Obstructive sleep apnea (adult) (pediatric) Status: Acute Assessment and Plan: CPAP at night DS: Summary Hospital Course Reason for hospitalization: CHest Pain Hospital Course: 55-year-old male with hypertension, diet-controlled diabetes, right bundle branch block, and untreated sleep apnea who presented to the emergency department earlier today from home with complaints of chest pain. Heart cath is clear pt had bout of chest pain today. Awaiting to see cardiology was given NTG today. Long discussion with patient tired of recurrent chest pain, I will consult GI to rule out Gi causes moises as he has a history of GERD. EGD was negative, Chest pain likely muscular or anxiety related Time Spent with Patient Time attestation: Total time spent providing and/or coordinating discharge services:40 minutes on day of discharge Exam Const: General: cooperative and healthy appearing Nutritional Appearance: overweight Orientation/consciousness: oriented to person HENMT: Head: normal to inspection Resp: Effort & Inspection: no respiratory distress Auscultation: no rhonchi and no wheezes Cardio: Rate: regular rate Rhythm: regular rhythm GI: Inspection: normal to inspection Auscultation: normal bowel sounds Neuro: General: oriented to person DS: Data Data Completed and Pending Labs on day of discharge: Labs from last 24 hours 03/04/21 03/04/21 03/04/21 12:26 12:15 11:03 POC Capillary Glucose 88 87 105 03/04/21 03/03/21 03/03/21 07:41 20:42 17:26 POC Capillary Glucose 113 H 135 H 102 03/03/21 12:00 POC Capillary Glucose 134 H Discharge Plan Discharge Attending physician on discharge: Funmi Em Consulting providers: Sarah Marte ; John Danielson ; Lina Lopez ; Bianca New ; Saurabh Caldera ; Trevor Laws ; Edenilson Ratliff ; Latonya Dixon Discharging Clinician: Funmi Em Anticipated Discharge Date/Time: 03/04/21 13:37 Patient Disposition: Home, Self-Care Activity: other - see discharge instructions Diet: heart healthy Patient Instructions: Antibiotic Form Stand Alone Forms: General Discharge Information Follow-up/Referrals: Paulino Pool MD [Primary Care Provider] - Discharge Medications: New baclofen 10 mg Tablet 5 mg PO Q8HR Qty: 30 RF: 0 alprazolam [Xanax] 0.25 mg tablet 0.25 mg PO DAILY PRN (Reason: anxiety) Qty: 20 RF: 0 Continued carvedilol 25 mg tablet 25 mg PO Q12H RF: 0 chlorthalidone 25 mg tablet 25 mg PO DAILY RF: 0 Hold Instructions: Resume whe
== END 2021-03-04 14:58 | disposition home or self-care (01) | DRG 287 ==
LOC: ANHED 13:07 → ANHIMU 13:37 → ANH2MED 03-02 23:29
PROVIDERS: Internal Medicine Cardiovascular Disease; Internal Medicine Gastroenterology; Physician Assistant; Specialist; Admitting Provider Internal Medicine; Emergency Provider Emergency Medicine; PCP Family Medicine; Visit Provider Family Medicine
PROC: 4A023N7 Measurement of Cardiac Sampling and Pressure, Left Heart, Percutaneous Approach (ICD-10-PCS; CPT 93452; principal; 2021-03-02 11:00)
PROC: 4A023N7 Measurement of Cardiac Sampling and Pressure, Left Heart, Percutaneous Approach (ICD-10-PCS; 2021-03-02 11:00)
PROC: 0DJ08ZZ Inspection of Upper Intestinal Tract, Via Natural or Artificial Opening Endoscopic (ICD-10-PCS; CPT 43235; principal; 2021-03-04 12:00)
DX: R07.89 Other chest pain (principal); I10 Essential (primary) hypertension; I45.10 Unspecified right bundle-branch block; E11.9 Type 2 diabetes mellitus without complications; G47.33 Obstructive sleep apnea (adult) (pediatric); Z79.82 Long term (current) use of aspirin; Z79.899 Other long term (current) drug therapy
CPT/HCPCS: 36415; 71046; 80048; 80053; 82948; 84484; 85025; 85610; 85652; 85730; 86038; 86430; 87081; 93005; 93458; 96360; 96361; 96374; 99285; A9270; C1760; C1887; C1894; G0269; G0378; J1644; J2001; J2250; J2270; J2704; J3010; J7030; J7040; J7120

== ENCOUNTER 2021-05-05 10:15 | Outpatient (RCR) | payer OTHER, SELFPAY | END 2021-05-05 12:18 | disposition home or self-care (01) | LOC: ANHDMC 10:15 | PROVIDERS: PCP Family Medicine; Referring Provider Family Medicine; Visit Provider Family Medicine | DX: E11.65 Type 2 diabetes mellitus with hyperglycemia (principal); Z71.89 Other specified counseling | CPT/HCPCS: G0108 ==

== ENCOUNTER 2021-06-18 18:31 | Emergency (ER) | payer OTHER, SELFPAY ==
[2021-06-18] VITALS (11 sets, daily range): BP systolic 153–194; BP diastolic 78–104; PULSE 61–80; RESP 10–18; TEMP 36.6; O2SAT 96–99
--- NOTE | ~2021-06-18 | XR_ITS ---
EXAMINATION: XR chest 1V portable DATE: 06/18/2021 19:11 INDICATION: Left chest pain. Shortness of breath. TECHNIQUE: A single frontal view of the chest was obtained. COMPARISON: Chest 2 views 03/01/21, chest CT 01/28/2021 FINDINGS: The chest demonstrates clear lungs without pneumonia, pleural effusion, or pneumothorax. Th e heart size is normal. There is an old healed right rib fracture. IMPRESSION: 1. No acute cardiopulmonary disease. Reviewed, dictated and finalized at location A.
--- NOTE | ~2021-06-18 | CT_ITS ---
EXAMINATION: CTA chest PE protocol DATE: 06/18/2021 20:25 INDICATION: Chest pain and shortness of breath. TECHNIQUE: Computed tomography angiography (CTA) of the chest was performed with 100 mL Omnipaque-350 intravenous contrast timed to evaluate the pulmonary arteries. Coronal maximum intensity projection 3D-reconstructions were created by the technologist. Automated exposure control and iterative reconst ruction technique were employed. The dose-length product was 988.37 mGy-cm. COMPARISON: Chest CT 01/28/2021 FINDINGS: There is mild atelectasis bilaterally. A calcified left lung nodule and calcified left neha r lymph nodes are consistent with old granulomatous disease. There is a cluster of small nodules at r ight lung apex. No pleural effusion. Cardiomegaly is noted. There is no pulmonary embolus. There is d iffuse hepatic steatosis. There is an old united fracture of right eighth rib. There is severe thorac ic spondylosis. IMPRESSION: 1. No pulmonary embolus. Sensitivity is moderately decreased by motion artifact. 2. New cluster of small nodules at right lung apex, consistent with pneumonia. Reviewed, dictated and finalized at location A. IMPRESSION: 1. No pulmonary embolus. Sensitivity is moderately decreased by motion artifact . 2. New cluster of small nodules at right lung apex, consistent with pneumonia.
--- NOTE | 2021-06-18 18:33 | ECG_ITS ---
Measurements Intervals [place] Rate: 70 P: 24 [place]: 184 QRS: -9 QRSD: 142 T: -8 QT: 437 QTc: 474 Interpretive Statements SINUS RHYTHM RIGHT BUNDLE BRANCH BLOCK INFERIOR INFARCT, AGE INDETERMINATE ABNORMAL ECG Electronically Signed On 06-18-2021 20:14:24 CDT by Trevor Laws D.O.
[2021-06-18] MEDS: ASPIRIN 81 MG CHEWABLE TABLET 324 MG PO (19:22)
[2021-06-18 19:48] LABS: Basophils Percent Auto 0.6 % (0.2-1.2); Eosinophils Absolute Auto 0.1 K/mm3 (0-0.3); Eosinophils Percent Auto 1.9 % (0-4.4); Hematocrit 44.9 % (42.0-52.0); Hemoglobin 14.9 g/dL (14.0-18.0); Immature Granulocyte Absolute 0.02 K/mm3 (0.00-0.031); Immature Granulocyte Percent A 0.3 % (0-0.5); Lymphocytes Absolute Auto 1.95 K/mm3 (0.9-3.2); Lymphocytes Percent Auto 28.8 % (18.3-44.2); Mean Corpuscular HGB Conc 33.2 g/dl (32-36); Mean Corpuscular Hemoglobin 30.9 pg (26-34); Mean Corpuscular Volume 93.2 fl (80-100); Mean Platelet Volume 9.9 fl (7.4-10.4); Monocytes Absolute Auto 0.6 K/mm3 (0.1-0.6); Monocytes Percent Auto 8.7 % (2.6-8.5); Neutrophils Absolute Auto 4.1 K/mm3 (1.3-6.7); Neutrophils Percent Auto 59.7 % (45.5-73.1); Platelet Count Result 204 k/mm3 (150-375); Red Blood Count 4.82 M/mm3 (4.6-6.20); Red Cell Distribution Width 13.3 % (11.5-14.5); White Blood Count 6.8 K/mm3 (4.5-10.0)
--- NOTE | 2021-06-18 19:55 | ED.CHESTPAIN ---
HPI - Chest Pain General Chief Complaint: Chest Pain <Bethany Hahn MD - Last Filed: 06/20/21 23:38> Stated Complaint: CP <Bethany Hahn MD - Last Filed: 06/20/21 23:38> Time Seen by Provider: 06/18/21 18:56 <Bethany Hahn MD - Last Filed: 06/20/21 23:38> Source: patient and RN notes reviewed <Bethany Hahn MD - Last Filed: 06/20/21 23:38> Mode of arrival: ambulatory <Bethany Hahn MD - Last Filed: 06/20/21 23:38> Limitations: no limitations <Bethany Hahn MD - Last Filed: 06/20/21 23:38> History of Present Illness HPI narrative: This is a 55 year old male with history of hypertension who presents evaluation of left chest pain. PAtient reports intermittent left anterior chest pain that he describes as sharp and tightness. He reports his pain has been occuring intermittent today, but he has been admitted to hospital multiple times for this pain over the years. He reports he has no exacerbating factors. He has associated shortness of breath. He denies cough, fever, nasuea, vomiting. He has had 2 cardiac catheterizations in 2 years, and his most recent one was less than 4 months ago. Both catheterizations have been negative for coronary disease. He rates pain as 3/10 currently. <Bethany Hahn MD - Last Filed: 06/20/21 23:38> Related Data Home Medications: Home Medications Medication Instructions Recorded Confirmed carvedilol 25 mg tablet 25 mg PO Q12H 09/05/19 06/04/21 chlorthalidone 25 mg tablet 25 mg PO DAILY 09/05/19 06/04/21 lisinopril 40 mg tablet 40 mg PO DAILY 09/05/19 06/04/21 famotidine [Pepcid] 20 mg PO Q12H 03/01/21 06/04/21 <Bethany Hahn MD - Last Filed: 06/20/21 23:38> Allergies/Adverse Reactions: Allergies Allergy/AdvReac Type Severity Reaction Status Date / Time No Known Allergies Allergy Verified 06/04/21 08:01 <Bethany Hahn MD - Last Filed: 06/20/21 23:38> Review of Systems Review of Systems: All systems reviewed & are unremarkable except as noted in HPI and below <Bethany Hahn MD - Last Filed: 06/20/21 23:38> [facility] Past Medical History Medical History: Medical History Chest pain Diabetes mellitus Diagnosed in September 2020 at which time his A1c was 6.9%. To avoid medication he has been trying to lose weight with most recent hemoglobin A1c of 6.6%. Essential hypertension Morbid obesity with BMI of 40.0-44.9, adult Normal nuclear stress test (01/29/21) Obstructive sleep apnea Untreated, patient does not tolerate CPAP. Right bundle branch block Right bundle branch block <Bethany Hahn MD - Last Filed: 06/20/21 23:38> Surgical History Surgical History: Surgical History History of cardiac catheterization (~02/2019) Normal coronary arteries. <Bethany Hahn MD - Last Filed: 06/20/21 23:38> Family History Family History: Family History Mother Family history of cardiovascular disease Diabetes mellitus Hypertension Sibling Family history of cardiovascular disease Acute myocardial infarction Hypertension Grandparent Chronic obstructive pulmonary disease Diabetes mellitus <Bethany Hahn MD - Last Filed: 06/20/21 23:38> Social History Social History: Social History (Updated 06/04/21 @ 08:03 by Adelaide Bryant) Social History: Surrogate decision maker: Megan Puentes, mother. Code status: Full code. Smoking status: Never smoker Second hand tobacco smoke exposure: No Alcohol intake: current Drinks per week: 2 Substance use: never Substance use type: does not use Additional living arrangements comments: The patient lives in [place] with his daughter. Additional occupation/education comments: Works in [employer] at [email or web address]. Gender identity (if ve
[2021-06-18 19:57] LABS: Prothrombin Time 12.7 Seconds (11.1-14.7)
[2021-06-18 19:58] LABS: Anion Gap 9 mmol/L (8-16); Blood Urea Nitrogen 21 mg/dL (9-20); Calcium 9.4 mg/dL (8.4-10.2); Carbon Dioxide 27 mmol/L (22-30); Chloride 101 mmol/L (98-107); Estimated CRCL calculation 88 ml/min; Estimated Glomerular Filt Rate > 60; Glucose 95 mg/dL (65-110); Partial Thromboplastin Time 28.4 SECONDS (22.3-36.8); Potassium 3.8 mmol/L (3.4-5.0); Sodium 137 mmol/L (137-145)
[2021-06-18 20:00] LABS: D Dimer 0.72 ug/mL (<0.48)
[2021-06-18] MEDS: ALPRAZolam (*CRX) 0.25 MG TABLET PO (20:09)
[2021-06-18 20:12] LABS: Troponin I < 0.012 ng/mL (0.000-0.034)
[2021-06-18] MEDS: carvediloL 25 MG TABLET PO (22:03)
[2021-06-18 23:11] LABS: Troponin I < 0.012 ng/mL (0.000-0.034)
== END 2021-06-18 23:48 | disposition home or self-care (01) ==
PROVIDERS: Family Medicine; General Practice; Emergency Provider Emergency Medicine; PCP Family Medicine
DX: J18.9 Pneumonia, unspecified organism (principal); R07.89 Other chest pain; E11.9 Type 2 diabetes mellitus without complications; I10 Essential (primary) hypertension; E66.01 Morbid (severe) obesity due to excess calories; Z68.37 Body mass index [BMI] 37.0-37.9, adult; G47.33 Obstructive sleep apnea (adult) (pediatric); I45.10 Unspecified right bundle-branch block; R94.31 Abnormal electrocardiogram [ECG] [EKG]
CPT/HCPCS: 36415; 71045; 71275; 80048; 84484; 85025; 85380; 85610; 85730; 93005; 99284; A9270; Q9967

== ENCOUNTER 2021-06-23 08:07 | Emergency (ER) | payer OTHER, SELFPAY ==
[2021-06-23] VITALS (22 sets, daily range): BP systolic 138–204; BP diastolic 65–118; PULSE 47–62; RESP 9–21; TEMP 36.6; O2SAT 93–100
--- NOTE | ~2021-06-23 | XR_ITS ---
EXAMINATION: XR chest 2V EXAM DATE: 06/23/2021 08:59 INDICATION: chest pain TECHNIQUE: Frontal and lateral projections of the chest obtained and reviewed. Comparison is made to prior examination from 06/18/2021, chest x-ray and chest CT. FINDINGS: There is no focal acute air space disease. There are no pleural effusions. The cardiome diastinal silhouette is within normal limits. There is no pneumothorax suspected. The bones and sof t tissues are unremarkable. IMPRESSION: No acute cardiopulmonary findings. Reviewed, dictated and finalized at location A.
--- NOTE | ~2021-06-23 | CT_ITS ---
EXAMINATION: CT brain wo con EXAM DATE: 06/23/2021 09:02 INDICATION: Headache . TECHNIQUE: Spiral CT of the head was performed without contrast. Axial, coronal and sagittal images were reviewed. The dose-length product (DLP) for this examination was 605.33 mGy-cm. The exposure w as tailored according to patient size, and iterative reconstruction (ASIR) was used as additional dos e reduction technique. There is no prior study for comparison. FINDINGS: There is no acute intraparenchymal hemorrhage. No evidence of intraparenchymal brain mass lesion. No evidence of acute infarction. There is no mass effect or midline shift. The ventricles are normal in size. There are no extra-axial collections. There are no acute calvarial fractures. T he orbits are unremarkable. Soft tissue is unremarkable. The visualized sinuses and mastoid air sekou ls are well aerated. IMPRESSION: No acute intracranial findings. Reviewed, dictated and finalized at location A.
--- NOTE | 2021-06-23 08:22 | ECG_ITS ---
Measurements Intervals [place] Rate: 59 P: 31 [place]: 197 QRS: -22 QRSD: 169 T: -15 QT: 474 QTc: 472 Interpretive Statements SINUS BRADYCARDIA RIGHT BUNDLE BRANCH BLOCK INFERIOR INFARCT, AGE INDETERMINATE ANTEROSEPTAL INFARCT, AGE INDETERMINATE BASELINE ARTIFACT- I, II, III, AVR, AVF, V1, V3-V6 ABNORMAL ECG Electronically Signed On 06-23-2021 10:58:09 CDT by Trevor Laws D.O.
--- NOTE | 2021-06-23 08:59 | ED.CHESTPAIN ---
HPI - Chest Pain General Chief Complaint: Chest Pain Stated Complaint: chest pain Time Seen by Provider: 06/23/21 08:21 Source: patient Mode of arrival: ambulatory Limitations: no limitations History of Present Illness HPI narrative: 56 years old white male presented to the ED with left chest pain and left-sided headache started yesterday morning. Has been constant since. Patient denies aggravating or relieving factors. Patient is telling me that his blood pressure medication reduced 2 weeks ago by his family physician because of low blood pressure. On arrival to the emergency room blood pressure was 187/104, when I went see the patient in the room was 204/118. Patient does not smoke or drink or uses drugs. Patient on baby aspirin once a day and history of hypertension. Patient sister had AK at age 50. Patient had a negative cardiac catheterization in March 02, 2021. Related Data Home Medications Medication Instructions Recorded Confirmed carvedilol 25 mg tablet 25 mg PO Q12H 09/05/19 06/04/21 chlorthalidone 25 mg tablet 25 mg PO DAILY 09/05/19 06/04/21 lisinopril 40 mg tablet 40 mg PO DAILY 09/05/19 06/04/21 famotidine [Pepcid] 20 mg PO Q12H 03/01/21 06/04/21 Allergies Allergy/AdvReac Type Severity Reaction Status Date / Time No Known Allergies Allergy Verified 06/23/21 08:29 [facility] Past Medical History Medical History Chest pain Diabetes mellitus Diagnosed in September 2020 at which time his A1c was 6.9%. To avoid medication he has been trying to lose weight with most recent hemoglobin A1c of 6.6%. Essential hypertension Morbid obesity with BMI of 40.0-44.9, adult Normal nuclear stress test (01/29/21) Obstructive sleep apnea Untreated, patient does not tolerate CPAP. Right bundle branch block Right bundle branch block Surgical History Surgical History History of cardiac catheterization (~02/2019) Normal coronary arteries. Family History Family History Mother Family history of cardiovascular disease Diabetes mellitus Hypertension Sibling Family history of cardiovascular disease Acute myocardial infarction Hypertension Grandparent Chronic obstructive pulmonary disease Diabetes mellitus Social History Social History (Updated 06/04/21 @ 08:03 by Adelaide Bryant) Social History: Surrogate decision maker: Megan Puentes, mother. Code status: Full code. Smoking status: Never smoker Second hand tobacco smoke exposure: No Alcohol intake: current Drinks per week: 2 Substance use: never Substance use type: does not use Additional living arrangements comments: The patient lives in [place] with his daughter. Additional occupation/education comments: Works in [employer] at [employer]. Gender identity (if verbalized by the patient): Male Sexual Orientation (if Verbalized by the Patient): Straight or Heterosexual Course Consultations Consultation #1: Dr. Pool nurse practitioner, Agreed with increasing amlodipine up to 5 mg once a day Date: 06/23/21 Time: 13:44 Vital Signs Vital signs: Vital Signs Temperature 36.6 C 06/23/21 08:22 Pulse Rate 60 06/23/21 08:22 Respiratory Rate 18 06/23/21 08:22 Blood Pressure 187/104 H 06/23/21 08:22 Pulse Oximetry 98 06/23/21 08:22 Temperature 36.6 C 06/23/21 08:22 Pulse Rate 56 L 06/23/21 13:15 Respiratory Rate 11 L 06/23/21 13:15 Blood Pressure 157/80 H 06/23/21 13:02 Pulse Oximetry 95 06/23/21 13:15 MDM - Chest Pain Lab Data Result diagrams: 06/23/21 08:50 06/23/21 08:50 Labs: Lab Results 06/23/21 06/23/21 06/23/21 Range/Units 08:50 08:50 08:50 WBC 5.7 (4.5-10.0) K/mm3 RBC 5.01 (4.6-6.20) M/mm3 Hgb 15.3 (14.0-18.0) g/dL Hct 46.1 (42.0-52.0) % MCV 92.0 (80-100) fl
[2021-06-23 09:05] LABS: Basophils Percent Auto 0.7 % (0.2-1.2); Eosinophils Absolute Auto 0.2 K/mm3 (0-0.3); Eosinophils Percent Auto 2.7 % (0-4.4); Hematocrit 46.1 % (42.0-52.0); Hemoglobin 15.3 g/dL (14.0-18.0); Immature Granulocyte Absolute 0.02 K/mm3 (0.00-0.031); Immature Granulocyte Percent A 0.4 % (0-0.5); Lymphocytes Absolute Auto 1.41 K/mm3 (0.9-3.2); Lymphocytes Percent Auto 24.9 % (18.3-44.2); Mean Corpuscular HGB Conc 33.2 g/dl (32-36); Mean Corpuscular Hemoglobin 30.5 pg (26-34); Mean Platelet Volume 10.4 fl (7.4-10.4); Monocytes Absolute Auto 0.6 K/mm3 (0.1-0.6); Monocytes Percent Auto 11.3 % (2.6-8.5); Neutrophils Absolute Auto 3.4 K/mm3 (1.3-6.7); Platelet Count Result 199 k/mm3 (150-375); Red Blood Count 5.01 M/mm3 (4.6-6.20); Red Cell Distribution Width 13.3 % (11.5-14.5); White Blood Count 5.7 K/mm3 (4.5-10.0)
[2021-06-23] MEDS: ASPIRIN 81 MG CHEWABLE TABLET 324 MG PO (09:11)
[2021-06-23] MEDS: NITROGLYCERIN OINTMENT 1 INCH DOSE TRANSDERM (09:11)
[2021-06-23] MEDS: METOPROLOL TARTRATE INJ 5 MG/5 ML VIAL IV PUSH ×3 (09:12→10:34)
[2021-06-23 09:14] LABS: Anion Gap 6 mmol/L (8-16); Blood Urea Nitrogen 21 mg/dL (9-20); Calcium 8.8 mg/dL (8.4-10.2); Carbon Dioxide 28 mmol/L (22-30); Chloride 101 mmol/L (98-107); Estimated CRCL calculation 95 ml/min; Estimated Glomerular Filt Rate > 60; Glucose 114 mg/dL (65-110); INR 0.9; Prothrombin Time 12.1 Seconds (11.1-14.7); Sodium 135 mmol/L (137-145)
[2021-06-23 09:15] LABS: Partial Thromboplastin Time 28.7 SECONDS (22.3-36.8)
[2021-06-23 09:26] LABS: Troponin I < 0.012 ng/mL (0.000-0.034)
[2021-06-23 12:38] LABS: Troponin I < 0.012 ng/mL (0.000-0.034)
--- NOTE | 2021-06-23 12:45 | PC.NURSE ---
C/O headache and nausea, Dr. Vo notified and orders received.
[2021-06-23] MEDS: ONDANSETRON INJ 4 MG/2 ML VIAL IV PUSH (12:59)
[2021-06-23] MEDS: ACETAMINOPHEN 500 MG TABLET 1000 MG PO (12:59)
== END 2021-06-23 15:15 | disposition home or self-care (01) ==
PROVIDERS: Emergency Provider Emergency Medicine; PCP Family Medicine
DX: R07.9 Chest pain, unspecified (principal); I10 Essential (primary) hypertension; R00.1 Bradycardia, unspecified
CPT/HCPCS: 36415; 70450; 71046; 80048; 84484; 85025; 85610; 85730; 93005; 96374; 96375; 96376; 99284; A9270; J2405

== ENCOUNTER 2021-07-23 18:46 | Observation (INO) | payer OTHER, SELFPAY ==
[2021-07-23] VITALS (18 sets, daily range): BP systolic 135–236; BP diastolic 78–140; PULSE 67–77; RESP 12–21; TEMP 36.4; O2SAT 96–99
--- NOTE | ~2021-07-23 | CT_ITS ---
EXAMINATION: CT brain wo con EXAM DATE: 07/23/2021 21:11 INDICATION: headache with HTN SBP>200 . Dizziness. TECHNIQUE: Spiral CT of the head was performed without contrast. Axial, coronal and sagittal images were reviewed. The dose-length product (DLP) for this examination was 605.33 mGy-cm. The exposure w as tailored according to patient size, and iterative reconstruction (ASIR) was used as additional dos e reduction technique. Comparison is made to prior examination from 07/13/2021. FINDINGS: There is no acute intraparenchymal hemorrhage. No evidence of intraparenchymal brain mass lesion. No evidence of acute infarction. There is no mass effect or midline shift. The ventricles are normal in size. There are no extra-axial collections. There are no acute calvarial fractures. T he orbits are unremarkable. Soft tissue is unremarkable. The visualized sinuses and mastoid air sekou ls are well aerated. IMPRESSION: 1. No acute intracranial findings. Reviewed, dictated and finalized at location G.
--- NOTE | ~2021-07-23 | XR_ITS ---
EXAMINATION: XR chest 2V EXAM DATE: 07/23/2021 19:27 INDICATION: LEft Sided Chest Pain,Hbp,Headaches,Sob All For A Few Years. TECHNIQUE: Frontal and lateral projections of the chest obtained and reviewed. Comparison is made to prior examination from 06/23/2021. FINDINGS: The lungs are clear. There are no pleural effusions. The cardiomediastinal silhouette is within normal limits. There is no pneumothorax suspected. The bones and soft tissues are unremarkab le. IMPRESSION: No acute cardiopulmonary findings. Reviewed, dictated and finalized at location G.
--- NOTE | 2021-07-23 18:52 | ECG_ITS ---
Measurements Intervals [place] Rate: 73 P: 35 [place]: 187 QRS: -27 QRSD: 156 T: -6 QT: 436 QTc: 482 Interpretive Statements SINUS RHYTHM RIGHT BUNDLE BRANCH BLOCK INFERIOR INFARCT, AGE INDETERMINATE ABNORMAL ECG Electronically Signed On 07-23-2021 18:58:15 CDT by Trevor Laws D.O.
[2021-07-23 19:21] LABS: Basophils Percent Auto 0.4 % (0.2-1.2); Eosinophils Absolute Auto 0.2 K/mm3 (0-0.3); Eosinophils Percent Auto 2.4 % (0-4.4); Hematocrit 44.4 % (42.0-52.0); Hemoglobin 14.7 g/dL (14.0-18.0); Immature Granulocyte Absolute 0.02 K/mm3 (0.00-0.031); Immature Granulocyte Percent A 0.3 % (0-0.5); Lymphocytes Percent Auto 25.8 % (18.3-44.2); Mean Corpuscular HGB Conc 33.1 g/dl (32-36); Mean Corpuscular Hemoglobin 31.1 pg (26-34); Mean Corpuscular Volume 94.1 fl (80-100); Mean Platelet Volume 10.6 fl (7.4-10.4); Monocytes Absolute Auto 0.8 K/mm3 (0.1-0.6); Monocytes Percent Auto 10.2 % (2.6-8.5); Neutrophils Absolute Auto 4.5 K/mm3 (1.3-6.7); Neutrophils Percent Auto 60.9 % (45.5-73.1); Platelet Count Result 192 k/mm3 (150-375); Red Blood Count 4.72 M/mm3 (4.6-6.20); Red Cell Distribution Width 13.3 % (11.5-14.5); White Blood Count 7.4 K/mm3 (4.5-10.0)
[2021-07-23 19:54] LABS: Anion Gap 7 mmol/L (8-16); Blood Urea Nitrogen 22 mg/dL (9-20); Calcium 9.1 mg/dL (8.4-10.2); Carbon Dioxide 29 mmol/L (22-30); Chloride 101 mmol/L (98-107); Estimated CRCL calculation 70 ml/min; Estimated Glomerular Filt Rate 53; Glucose 131 mg/dL (65-110); Potassium 4.1 mmol/L (3.4-5.0); Sodium 137 mmol/L (137-145); Troponin I < 0.012 ng/mL (0.000-0.034)
[2021-07-23] MEDS: ASPIRIN 81 MG CHEWABLE TABLET 324 MG PO (21:38)
[2021-07-23] MEDS: SODIUM CHLORIDE 0.9% IV 1,000 ML 999 ML IV CONT (21:38)
[2021-07-23] MEDS: hydrALAZINE HCL 20 MG/ML VIAL 10 MG IV PUSH (21:55)
--- NOTE | 2021-07-23 21:56 | ED.CHESTPAIN ---
HPI - Chest Pain General Chief Complaint: Chest Pain Stated Complaint: cp/htn Time Seen by Provider: 07/23/21 20:35 Source: patient History of Present Illness HPI narrative: Patient presents with generally not feeling well. Reports he has been not doing well over the past couple days and has now developed a headache. He also notes the past 48 hours his blood pressure has increased to the 200s. Reports he is on multiple antihypertensives and his blood pressure normally runs around 140s systolic over 90s diastolic. He is unsure as to what is going on is denying shortness of breath or cough. Reports mild achy chest pain without clear aggravating or alleviating factors he denies any radiation he denies any nausea or vomiting denies any diarrhea denies any abdominal pain. Denies any focal numbness denies any changes in vision Related Data Home Medications Medication Instructions Recorded Confirmed carvedilol 25 mg tablet 25 mg PO Q12H 09/05/19 06/04/21 chlorthalidone 25 mg tablet 25 mg PO DAILY 09/05/19 06/04/21 lisinopril 40 mg tablet 40 mg PO DAILY 09/05/19 06/04/21 famotidine [Pepcid] 20 mg PO Q12H 03/01/21 06/04/21 Allergies Allergy/AdvReac Type Severity Reaction Status Date / Time No Known Allergies Allergy Verified 07/23/21 20:42 Review of Systems Review of Systems: CONSTITUTIONAL: Denies fever, chills, or sweats. EYES: Denies visual changes, redness, or discharge. ENT: Denies rhinorrhea, congestion, sore throat, or otalgia. CARDIOVASCULAR: Denies palpitations, or edema. RESPIRATORY: Denies cough or dyspnea. GASTROINTESTINAL: Denies abdominal pain, nausea, vomiting, or diarrhea. GENITOURINARY: Denies dysuria or hematuria. SKIN: Denies rash or itching. MUSCULOSKELETAL: Denies back pain, joint pain, or myalgia. NEUROLOGIC: Denies headache, numbness, dizziness, or weakness. PSYCHIATRIC: Denies anxiety or depression. All systems reviewed & are unremarkable except as noted in HPI and below PMFSH Past Medical History Medical History Chest pain Diabetes mellitus Diagnosed in September 2020 at which time his A1c was 6.9%. To avoid medication he has been trying to lose weight with most recent hemoglobin A1c of 6.6%. Essential hypertension Morbid obesity with BMI of 40.0-44.9, adult Normal nuclear stress test (01/29/21) Obstructive sleep apnea Untreated, patient does not tolerate CPAP. Right bundle branch block Right bundle branch block Surgical History Surgical History History of cardiac catheterization (~02/2019) Normal coronary arteries. Family History Family History Mother Family history of cardiovascular disease Diabetes mellitus Hypertension Sibling Family history of cardiovascular disease Acute myocardial infarction Hypertension Grandparent Chronic obstructive pulmonary disease Diabetes mellitus Social History Social History Social History: Surrogate decision maker: Megan Puentes, mother. Code status: Full code. Smoking status: Never smoker Second hand tobacco smoke exposure: No Alcohol intake: current Drinks per week: 2 Substance use: never Substance use type: does not use Additional living arrangements comments: The patient lives in [place] with his daughter. Additional occupation/education comments: Works in [employer] at [employer]. Gender identity (if verbalized by the patient): Male Sexual Orientation (if Verbalized by the Patient): Straight or Heterosexual Course Reevaluation(s) Reevaluation #1: Labs and imaging returned. Labs notable for elevated creatinine primary concern is for hypertensive urgency. Patient treated with hydralazine blood pressure is improving however patient is not noted any subjective improvement in his symptoms. Gi
[2021-07-23 22:11] LABS: INR 0.9; Prothrombin Time 12.4 Seconds (11.1-14.7)
[2021-07-23 22:12] LABS: Partial Thromboplastin Time 28.7 SECONDS (22.3-36.8)
[2021-07-23 22:21] LABS: Troponin I < 0.012 ng/mL (0.000-0.034)
--- NOTE | 2021-07-23 23:44 | PC.NURSE ---
after assuming care of patient, this RN asked if he could give us a urine sample. pt states he was not aware he needed to give one and just went. he states he is unable to give one at this time.
[2021-07-24] VITALS (14 sets, daily range): BP systolic 136–180; BP diastolic 65–101; PULSE 62–91; RESP 14–24; TEMP 35.6–36.4; O2SAT 96–99; BMI 38.1
--- NOTE | 2021-07-24 00:49 | ADMGEN ---
This patient, Saurabh Marquis, was admitted to IMU Room 213-01. Patient/family oriented to hospital policies and general routines including ID bracelet, bed and alarms, visiting hours, pain management, procedures, bathroom and other care routines, personal items, smoking policy, room service/diet, and visiting hours. Information on how to activate the Rapid Response Team has been discussed. Patient/Family are encouraged to report perceived risks to care and to ask questions if they do not understand what they are told or what they should do.
[2021-07-24] MEDS: hydrALAZINE HCL 20 MG/ML VIAL 10 MG IV PUSH (01:02)
[2021-07-24 02:39] LABS: Troponin I < 0.012 ng/mL (0.000-0.034)
[2021-07-24] MEDS: METOPROLOL TARTRATE INJ 5 MG/5 ML VIAL IV PUSH (05:34)
[2021-07-24 05:52] LABS: Add Urine Microscopic? NO; Appearance Urine Clear (Clear); Bilirubin Urine Negative (Negative); Blood Urine Negative (Negative); Color Urine Straw (Yellow); Glucose Urine UA Negative (Negative); Ketones Urine Negative (Negative); Leukocyte Esterase Ur Negative LEU/UL (Negative); Nitrate Urine Negative (Negative); Protein Urine Negative (Negative); Specific Grav Ur 1.012 (1.001-1.035); Urobilinogen Urine Negative mg/dL (<2.0)
[2021-07-24] MEDS: carvediloL 25 MG TABLET PO (08:27)
[2021-07-24] MEDS: lisinopriL 20 MG TABLET 40 MG PO (08:27)
[2021-07-24] MEDS: CHLORTHALIDONE 25 MG TABLET PO (08:27)
[2021-07-24] MEDS: ASPIRIN 81 MG CHEWABLE TABLET PO (08:27)
[2021-07-24] MEDS: amLODIPine BESYLATE 5 MG TABLET 10 MG PO (08:27)
[2021-07-24] MEDS: FAMOTIDINE 20 MG TABLET PO (08:28)
--- NOTE | 2021-07-24 09:09 | PM.IMHP ---
H&P: HPI History of Present Illness Date/Time: 07/24/21 09:09 Chief Complaint: Chest pain PMFSH Past Medical History Medical History Chest pain Diabetes mellitus Diagnosed in September 2020 at which time his A1c was 6.9%. To avoid medication he has been trying to lose weight with most recent hemoglobin A1c of 6.6%. Essential hypertension Morbid obesity with BMI of 40.0-44.9, adult Normal nuclear stress test (01/29/21) Obstructive sleep apnea Untreated, patient does not tolerate CPAP. Right bundle branch block Right bundle branch block Surgical History Surgical History History of cardiac catheterization (~02/2019) Normal coronary arteries. Family History Family History Mother Family history of cardiovascular disease Diabetes mellitus Hypertension Sibling Family history of cardiovascular disease Acute myocardial infarction Hypertension Grandparent Chronic obstructive pulmonary disease Diabetes mellitus Social History Social History Social History: Surrogate decision maker: Megan Puentes, mother. Code status: Full code. Smoking status: Never smoker Second hand tobacco smoke exposure: No Alcohol intake: current Drinks per week: 2 Substance use: never Substance use type: does not use Additional living arrangements comments: The patient lives in [place] with his daughter. Additional occupation/education comments: Works in [employer] at [employer]. Gender identity (if verbalized by the patient): Male Sexual Orientation (if Verbalized by the Patient): Straight or Heterosexual Spiritual care concerns: No Meds Home Medications and Allergies Home Medications Medication Instructions Recorded Confirmed Type carvedilol 25 mg tablet 25 mg PO Q12H 09/05/19 07/24/21 History chlorthalidone 25 mg tablet 25 mg PO DAILY 09/05/19 07/24/21 History lisinopril 40 mg tablet 40 mg PO DAILY 09/05/19 07/24/21 History aspirin [Children's Aspirin] 81 mg PO DAILY@0800 30 Days #30 01/22/21 07/24/21 Rx tablet famotidine [Pepcid] 20 mg PO BID 03/01/21 07/24/21 History amlodipine 10 mg PO DAILY 07/24/21 07/24/21 History escitalopram oxalate [Lexapro] 20 mg PO HS 07/24/21 07/24/21 History Allergies Allergy/AdvReac Type Severity Reaction Status Date / Time No Known Allergies Allergy Verified 07/23/21 20:42 Vital Signs Vital Signs - 24 hr 07/23/21 18:49 07/23/21 20:36 07/23/21 20:42 Temperature 97.5 F L Pulse Rate 73 77 72 Respiratory Rate 18 16 17 Blood Pressure 222/116 H 172/92 H Pulse Oximetry 98 97 97 07/23/21 20:43 07/23/21 20:45 07/23/21 20:47 Temperature Pulse Rate 70 68 74 Respiratory Rate 19 12 12 Blood Pressure 175/97 H Pulse Oximetry 97 96 97 07/23/21 21:00 07/23/21 21:02 07/23/21 21:14 Temperature Pulse Rate 77 72 Respiratory Rate 21 H 18 Blood Pressure 135/119 H 229/121 H Pulse Oximetry 98 97 98 07/23/21 21:15 07/23/21 21:17 07/23/21 21:30 Temperature Pulse Rate Respiratory Rate 16 Blood Pressure 212/134 H Pulse Oximetry 98 96 97 07/23/21 21:32 07/23/21 21:33 07/23/21 21:45 Temperature Pulse Rate Respiratory Rate 18 16 15 Blood Pressure 197/140 H Pulse Oximetry 96 98 97 07/23/21 21:47 07/23/21 22:00 07/23/21 22:01 Temperature Pulse Rate Respiratory Rate 17 18 16 Blood Pressure 236/111 H 168/78 H Pulse Oximetry 99 97 99 07/24/21 00:17 07/24/21 00:50 07/24/21 01:00 Temperature 96.9 F L Pulse Rate 62 66 88 Respiratory Rate 14 16 Blood Pressure 148/83 H 180/101 H Pulse Oximetry 99 98 07/24/21 02:00 07/24/21 04:00 07/24/21 05:34 Temperature 97.5 F L Pulse Rate 91 88 88 Respiratory Rate 20 Blood Pressure 151/65 H Pulse Oximetry 97 07/24/21 05:
[2021-07-24] MEDS: hydrALAZINE HCL 50 MG TABLET PO (13:02)
[2021-07-24] MEDS: FENOFIBRATE NANOCRYSTALLIZED 145 MG TABLET PO (13:02)
[2021-07-24] MEDS: SODIUM CHLORIDE 0.9% IV 1,000 ML 75 ML IV CONT (13:03)
[2021-07-24 13:33] LABS: Glucose Point of Care 144 mg/dl (65-105)
--- NOTE | 2021-07-24 14:03 | PM.DS ---
DS: Admitting Diagnosis Discharge Date 2:05 p.m. on July 24, 2021 Admitting Diagnosis Chest pain, ACS ruled out DS: Summary Hospital Course Hospital Course: See discharge summary below Time Spent with Patient Time attestation: Total time spent providing and/or coordinating discharge services: START OF DOCTOR BEAU?S DISCHARGE SUMMARY Date of Admission: July 24, 2021 Date of Discharge: 2:03 p.m. on July 24, 2021 Primary Diagnosis: Chest pain, ACS rule out. This year patient has had negative cardiac catheterization as well as negative cardiac stress testing. Likely angina versus chest pain caused by hypertensive urgency Secondary Diagnosis: Anxiety Acute renal insufficiency Grade 2 diastolic dysfunction Obstructive sleep apnea, patient CPAP intolerant/noncompliant with CPAP Hepatic steatosis Diabetes GERD Hypertriglyceridemia Hypertension/hypertensive urgency Obesity Consultations: None Disposition: The patient will be advised follow-up with his hadoop architect 7-14 days post discharge Discharge Medications: Norvasc 10 mg p.o. daily Aspirin 81 mg p.o. daily Coreg 25 mg p.o. b.i.d. Chlorthalidone 25 mg p.o. daily Lexapro 20 mg p.o. daily Pepcid 20 mg p.o. b.i.d. Lisinopril 40 mg p.o. daily Hydralazine 50 mg p.o. t.i.d. Tricor 145 mg p.o. daily END OF DOCTOR BEAU?S DISCHARGE SUMMARY DS: Data Data Completed and Pending Labs on day of discharge: Labs from last 24 hours 07/24/21 07/24/21 07/24/21 13:03 05:41 02:01 WBC RBC Hgb Hct MCV MCH MCHC RDW Plt Count MPV Immature Gran % (Auto) Neut % (Auto) Lymph % (Auto) [place] % (Auto) Eos % (Auto) Baso % (Auto) Lymph # (Auto) [place] # (Auto) Eos # (Auto) Baso # (Auto) Abs Immat Gran (auto) Absolute Neuts (auto) Absolute Nucleated RBC Nucleated RBC % PT INR APTT Sodium Potassium Chloride Carbon Dioxide Anion Gap BUN Creatinine Estim Creat Clear Calc Estimated GFR Glucose POC Capillary Glucose 144 H Calcium Troponin I < 0.012 Urine Color Straw Urine Appearance Clear Urine pH 6.0 Ur Specific [place] 1.012 Urine Protein Negative Urine Glucose (UA) Negative Urine Ketones Negative Ur Blood (Man) Negative Urine Nitrate Negative Urine Bilirubin Negative Urine Urobilinogen Negative Leukocyte Esterase Rfl Negative 07/23/21 07/23/21 07/23/21 21:49 21:49 19:10 WBC RBC Hgb Hct MCV MCH MCHC RDW Plt Count MPV Immature Gran % (Auto) Neut % (Auto) Lymph % (Auto) [place] % (Auto) Eos % (Auto) Baso % (Auto) Lymph # (Auto) [place] # (Auto) Eos # (Auto) Baso # (Auto) Abs Immat Gran (auto) Absolute Neuts (auto) Absolute Nucleated RBC Nucleated RBC % PT 12.4 INR 0.9 APTT 28.7 Sodium 137 Potassium 4.1 Chloride 101 Carbon Dioxide 29 Anion Gap 7 L BUN 22 H Creatinine 1.40 H Estim Creat Clear Calc 70 Estimated GFR 53 L Glucose 131 H POC Capillary Glucose Calcium 9.1 Troponin I < 0.012 < 0.012 Urine Color Urine Appearance Urine pH Ur Specific [place] Urine Protein Urine Glucose (UA) Urine Ketones Ur Blood (Man) Urine Nitrate Urine Bilirubin Urine Urobilinogen Leukocyte Esterase Rfl 07/23/21 19:10 WBC 7.4 RBC 4.72 Hgb 14.7 Hct 44.4 MCV 94.1 MCH 31.1 MCHC 33.1 RDW 13.3 Plt Count 192 MPV 10.6 H Immature Gran % (Auto) 0.3 Neut % (Auto) 60.9 Lymph % (Auto) 25.8 [place] % (Auto) 10.2 H Eos % (Auto) 2.4 Baso % (Auto) 0.4 Lymph # (Auto) 1.90 [place] # (Auto) 0.8 H Eos # (Auto) 0.2 Baso # (Auto) 0.0 Abs Immat Gran (auto) 0.02 Absolute Neuts (auto) 4.5 Absolute Nucleated RBC 0.0 Nucleated RBC % 0.0 PT INR APTT
== END 2021-07-24 15:43 | disposition home or self-care (01) ==
LOC: ANHED 23:01 → ANHIMU 07-24 02:12
PROVIDERS: Emergency Medicine; Admitting Provider Internal Medicine; Emergency Provider Emergency Medicine; PCP Family Medicine; Visit Provider Internal Medicine
DX: R07.89 Other chest pain (principal); I16.0 Hypertensive urgency; N28.9 Disorder of kidney and ureter, unspecified; R06.00 Dyspnea, unspecified; G47.33 Obstructive sleep apnea (adult) (pediatric); E11.9 Type 2 diabetes mellitus without complications; E66.01 Morbid (severe) obesity due to excess calories; F41.9 Anxiety disorder, unspecified; I10 Essential (primary) hypertension; K21.9 Gastro-esophageal reflux disease without esophagitis; Z68.38 Body mass index [BMI] 38.0-38.9, adult
CPT/HCPCS: 36415; 70450; 71046; 80048; 81003; 82948; 84484; 85025; 85610; 85730; 93005; 96374; 96375; 99285; A9270; G0378; J0131; J0360; J7030

== ENCOUNTER 2021-08-10 08:22 | Outpatient (CLI) | payer OTHER, SELFPAY ==
[2021-08-10 09:04] LABS: Alanine Aminotransferase 22 U/L (4-50); Albumin Level 4.3 g/dL (3.5-5.1); Alkaline Phosphatase 68 U/L (38-126); Anion Gap 10 mmol/L (8-16); Aspartate Amino Transferase 26 U/L (17-59); Bilirubin,Total 0.9 mg/dL (0.2-1.3); Blood Urea Nitrogen 22 mg/dL (9-20); Carbon Dioxide 26 mmol/L (22-30); Chloride 100 mmol/L (98-107); Estimated Glomerular Filt Rate 57; Glucose 155 mg/dL (65-110); Hemoglobin A1C 6.1 % (<5.7); Potassium 3.8 mmol/L (3.4-5.0); Sodium 136 mmol/L (137-145)
== END 2021-08-10 08:23 | disposition home or self-care (01) ==
LOC: ANHLAB 08:26
PROVIDERS: PCP Family Medicine; Visit Provider Physician Assistant
DX: E11.9 Type 2 diabetes mellitus without complications (principal); I10 Essential (primary) hypertension
CPT/HCPCS: 36415; 80053; 83036

== ENCOUNTER → 2021-09-15 09:06 | Outpatient (CLI) | payer OTHER, SELFPAY ==
--- NOTE | ~2021-09-15 | XR_ITS ---
EXAMINATION: XR shoulder LT min 2V DATE: 09/15/2021 09:31 INDICATION: Left shoulder pain TECHNIQUE: AP internally and externally rotated, AP oblique externally rotated and axillary views of the left shoulder were obtained. COMPARISON: None FINDINGS: Normal alignment. No fracture.Mild left glenohumeral and acromioclavicular osteoarthritis. Small moises cified nodules in the left upper lung zone and calcified mediastinal and left hilar lymph nodes consi stent with old granulomatous disease. Soft tissues are unremarkable. IMPRESSION: Mild left glenohumeral and acromioclavicular osteoarthritis. Reviewed, dictated and finalized at location A. TIVE RESOURCE MANAGER
== END ==
PROVIDERS: PCP Family Medicine; Visit Provider Physician Assistant
DX: M19.012 Primary osteoarthritis, left shoulder (principal)
CPT/HCPCS: 73030

== ENCOUNTER 2021-12-28 08:00 | Outpatient (CLI) | payer BC, SELFPAY ==
[2021-12-28 08:27] LABS: Hemoglobin A1C 6.1 % (<5.7)
[2021-12-28 08:29] LABS: Alanine Aminotransferase 21 U/L (4-50); Albumin Level 4.2 g/dL (3.5-5.1); Alkaline Phosphatase 76 U/L (38-126); Anion Gap 8 mmol/L (8-16); Aspartate Amino Transferase 27 U/L (17-59); Bilirubin,Total 0.7 mg/dL (0.2-1.3); Blood Urea Nitrogen 21 mg/dL (9-20); Calcium 8.5 mg/dL (8.4-10.2); Carbon Dioxide 27 mmol/L (22-30); Chloride 102 mmol/L (98-107); Estimated Glomerular Filt Rate > 60; Glucose 122 mg/dL (65-110); Potassium 4.1 mmol/L (3.4-5.0); Sodium 137 mmol/L (137-145)
== END 2021-12-28 08:01 | disposition home or self-care (01) ==
LOC: ANHLAB 08:02
PROVIDERS: PCP Family Medicine; Visit Provider Physician Assistant
DX: E11.9 Type 2 diabetes mellitus without complications (principal); N17.9 Acute kidney failure, unspecified
CPT/HCPCS: 36415; 80053; 83036

== ENCOUNTER 2022-01-11 09:18 | Emergency (ER) | payer BC, SELFPAY ==
--- NOTE | ~2022-01-11 | XR_ITS ---
EXAMINATION: XR chest 2V EXAM DATE: 01/11/2022 10:15 INDICATION: Transient Alteration Of Awareness, Fall. TECHNIQUE: Frontal and lateral projections of the chest obtained and reviewed. Comparison is made to prior examination from 07/23/2021. FINDINGS: The lungs are clear. There are no pleural effusions. The cardiomediastinal silhouette is p rominent but magnified on this AP technique. There is no pneumothorax suspected. The bones and so ft tissues are unremarkable. IMPRESSION: No acute cardiopulmonary findings. Reviewed, dictated and finalized at location B.
--- NOTE | ~2022-01-11 | XR_ITS ---
EXAMINATION: XR knee RT 3V DATE: 01/11/2022 10:15 INDICATION: Right knee pain. Fall. TECHNIQUE: 3 views of right knee were obtained. COMPARISON: None. FINDINGS: Bone alignment is normal. No fracture. There is mild tricompartmental osteoarthritis charac terized by tiny osteophytes. No joint space narrowing. No knee joint effusion. IMPRESSION: 1. Mild right knee osteoarthritis. Reviewed, dictated and finalized at location A.
--- NOTE | ~2022-01-11 | CT_ITS ---
EXAMINATION: CT brain wo con, CT cervical spine wo con EXAM DATE: 01/11/2022 10:07 INDICATION: Fall, HI, AMS TECHNIQUE: Spiral CT of the head was performed without contrast. Axial, coronal and sagittal images were reviewed. Spiral CT of the cervical spine was performed without contrast. Axial images were rev iewed. Coronal and sagittal reformatted images were also reviewed. The dose-length product (DLP) fo r this examination was 681.00 (accession [id number]), 547.91 (accession [id number]) mGy-cm. The exposure was tailored according to patient size, and iterative reconstruction (ASIR) was used as additional dose reduction technique. Comparison is made to prior examination from 07/23/2021. FINDINGS: HEAD CT: There is no acute intraparenchymal hemorrhage. No evidence of intraparenchymal brain mass l esion. No evidence of acute infarction. There is no mass effect or midline shift. There is no obstru ctive hydrocephalus suspected. There are no extra-axial collections. There are no acute calvarial f ractures. The orbits are unremarkable. Soft tissue is unremarkable. The visualized sinuses and mas toid air cells are well aerated. CERVICAL CT: Advanced cervical arthropathy, moderate mid cervical disc disease. There is no evidence of acute cervical fracture. The odontoid process is intact. Pre-dens space is normal. Prevertebra l soft tissue is normal. There are no soft tissue abnormalities identified. There is no disc space widening or traumatic vertebral body subluxation suspected. Vertebral body and disc heights are well -maintained. A detailed level by level evaluation of spondylosis can be added as addendum if reques ace. IMPRESSION: 1. No acute intracranial findings or cervical fracture. 2. Advanced cervical arthropathy. Reviewed, dictated and finalized at location B. IMPRESSION: 1. No acute intracranial findings or cervical fracture. 2. Advanced cervical arthropathy.
--- NOTE | ~2022-01-11 | XR_ITS ---
EXAMINATION: XR shoulder LT min 2V DATE: 01/11/2022 10:15 INDICATION: Left shoulder pain. Fall. TECHNIQUE: 4 views of left shoulder were obtained. COMPARISON: Left shoulder radiographs 09/15/2021 FINDINGS: Bone alignment is normal. No fracture. There is mild osteoarthrosis of glenohumeral joint a nd moderate osteoarthritis of acromioclavicular joint. IMPRESSION: 1. Polyarticular osteoarthritis. Reviewed, dictated and finalized at location A.
[2022-01-11 09:24] VITALS: BP 179/97; PULSE 68; RESP 12; TEMP 36.6; O2SAT 99
--- NOTE | 2022-01-11 09:29 | ED.FALL ---
HPI - Fall General Chief Complaint: Altered Mental Status <Tracy Kern PA-C - Last Filed: 01/11/22 19:25> Stated Complaint: fall, head injury <Tracy Kern PA-C - Last Filed: 01/11/22 19:25> Time Seen by Provider: 01/11/22 09:27 <Tracy Kern PA-C - Last Filed: 01/11/22 19:25> Source: patient <Tracy Kern PA-C - Last Filed: 01/11/22 19:25> Mode of arrival: ambulatory <LORENA Rees Last Filed: 01/11/22 19:25> Limitations: no limitations <Tracy Kern PA-C - Last Filed: 01/11/22 19:25> History of Present Illness HPI Narrative: Patient is a 56-year-old male who presents the ED with report of a fall. Patient's significant other at bedside assisted in providing information. She reports that he fell on Tuesday and hit his head. Patient does not remember how the fall occurred. He states one minute he was walking and the next minute he was looking up at the ceiling. Unsure of LOC. Patient did strike his R temporal region in the fall. No wounds, lacs. Patient's significant other was not present at the time of the fall, but reports that patient was acting normally that night. He was not evaluated initially after the fall. Yesterday and today, patient's significant other reports that the patient has been acting goofy. She states she found him sitting on the floor today and he was not sure how or why he had gotten there. Patient reports having pain to his right knee, left shoulder, posterior neck, mild headache, occasional dizziness/lightheadedness, and mild nausea yesterday. Denies any focal weakness, numbness, vision changes, CP, SOB, back pain. Patient takes ASA 81mg daily. No other blood thinners. He does mention he has been receiving physical therapy for chronic left shoulder pain. <Tracy Kern PA-C - Last Filed: 01/11/22 19:25> Related Data Home Medications: Home Medications Medication Instructions Recorded Confirmed carvedilol 25 mg tablet 25 mg PO Q12H 09/05/19 12/31/21 chlorthalidone 25 mg tablet 25 mg PO DAILY 09/05/19 12/31/21 lisinopril 40 mg tablet 40 mg PO DAILY 09/05/19 12/31/21 famotidine [Pepcid] 20 mg PO BID 03/01/21 12/31/21 <Tracy Kern PA-C - Last Filed: 01/11/22 19:25> Allergies/Adverse Reactions: Allergies Allergy/AdvReac Type Severity Reaction Status Date / Time No Known Allergies Allergy Verified 01/11/22 09:32 <Tracy Kern PA-C - Last Filed: 01/11/22 19:25> Review of Systems Review of Systems: CONSTITUTIONAL: Denies fever, chills, or sweats. EYES: Denies visual changes. CARDIOVASCULAR: Denies chest pain, palpitations, or edema. RESPIRATORY: Denies cough or dyspnea. GASTROINTESTINAL: Denies abdominal pain, nausea, vomiting, or diarrhea. GENITOURINARY: Denies dysuria or hematuria. SKIN: Denies rash or itching. MUSCULOSKELETAL: Reports R knee pain, L shoulder pain, posterior neck pain. Denies back pain. NEUROLOGIC: Reports STOCK, HI dizziness/lightheadedness. Denies numbness or focal weakness. <Tracy Kern PA-C - Last Filed: 01/11/22 19:25> All systems reviewed & are unremarkable except as noted in HPI and below <Tracy Kern PA-C - Last Filed: 01/11/22 19:25> [facility] Past Medical History Medical History: Medical History Chest pain Diabetes mellitus Diagnosed in September 2020 at which time his A1c was 6.9%. To avoid medication he has been trying to lose weight with most recent hemoglobin A1c of 6.6%. Essential hypertension Morbid obesity with BMI of 40.0-44.9, adult Normal nuclear stress test (01/29/21) Obstructive sleep apnea Untreated, patient does not tolerate CPAP. Right bundle branch block Right bundle branch block <Tracy Kern PA-C - Last Filed: 01/11/22 19:25> Surgical History Surgical History: Surgical History History of cardiac catheterization (~02/2019) Normal cor
--- NOTE | 2022-01-11 09:33 | ECG_ITS ---
Measurements Intervals [place] Rate: 67 P: 21 [place]: 204 QRS: -16 QRSD: 157 T: -12 QT: 450 QTc: 478 Interpretive Statements SINUS RHYTHM RIGHT BUNDLE BRANCH BLOCK [120+ ms QRS DURATION, UPRIGHT V1, 40+ ms S IN I/aVL/V4/V5/V6] INFERIOR MYOCARDIAL INFARCTION , OF INDETERMINATE AGE [40+ ms Q WAVE AND/OR ST/T ABNORMALITY IN II/aVF] MODERATE T-WAVE ABNORMALITY, CONSIDER LATERAL ISCHEMIA [-0.1+ mV T WAVE IN I/aVL/V5/V6] ABNORMAL ECG COMPARED TO ECG 07/23/2021 18:56:40 LATERAL T-WAVE ABNORMALITY PROMINENT Electronically Signed On 01-11-2022 16:55:54 CDT by Hao Rodriguez M.D.
[2022-01-11 09:46] VITALS: BP 176/104; PULSE 69; RESP 11; O2SAT 96
[2022-01-11 10:45] VITALS: BP 153/89; PULSE 68; RESP 14; O2SAT 98
--- NOTE | 2022-01-11 10:45 | PC.NURSE ---
C collar taken off of the pt
[2022-01-11 10:47] LABS: Basophils Percent Auto 0.5 % (0.2-1.2); Eosinophils Absolute Auto 0.1 K/mm3 (0-0.3); Eosinophils Percent Auto 1.8 % (0-4.4); Hematocrit 49.2 % (42.0-52.0); Hemoglobin 16.2 g/dL (14.0-18.0); Immature Granulocyte Absolute 0.01 K/mm3 (0.00-0.031); Immature Granulocyte Percent A 0.2 % (0-0.5); Lymphocytes Absolute Auto 1.51 K/mm3 (0.9-3.2); Mean Corpuscular HGB Conc 32.9 g/dl (32-36); Mean Corpuscular Hemoglobin 30.9 pg (26-34); Mean Corpuscular Volume 93.7 fl (80-100); Mean Platelet Volume 10.3 fl (7.4-10.4); Monocytes Absolute Auto 0.7 K/mm3 (0.1-0.6); Monocytes Percent Auto 11.3 % (2.6-8.5); Neutrophils Absolute Auto 3.7 K/mm3 (1.3-6.7); Neutrophils Percent Auto 61.2 % (45.5-73.1); Platelet Count Result 208 k/mm3 (150-375); Red Blood Count 5.25 M/mm3 (4.6-6.20); Red Cell Distribution Width 12.9 % (11.5-14.5)
[2022-01-11 10:58] LABS: Prothrombin Time 12.8 Seconds (11.1-14.7)
[2022-01-11 10:59] LABS: Alanine Aminotransferase 25 U/L (4-50); Albumin Level 4.6 g/dL (3.5-5.1); Alkaline Phosphatase 92 U/L (38-126); Anion Gap 8 mmol/L (8-16); Aspartate Amino Transferase 31 U/L (17-59); Bilirubin,Total 0.6 mg/dL (0.2-1.3); Blood Urea Nitrogen 21 mg/dL (9-20); Calcium 8.9 mg/dL (8.4-10.2); Carbon Dioxide 30 mmol/L (22-30); Chloride 98 mmol/L (98-107); Estimated CRCL calculation 88 ml/min; Estimated Glomerular Filt Rate > 60; Glucose 125 mg/dL (65-110); Partial Thromboplastin Time 29.8 SECONDS (22.3-36.8); Potassium 3.9 mmol/L (3.4-5.0); Sodium 136 mmol/L (137-145)
[2022-01-11] MEDS: KETOROLAC 30 MG/ML VIAL (*BKC) IV PUSH (11:07)
[2022-01-11] MEDS: ONDANSETRON INJ 4 MG/2 ML VIAL IV PUSH (11:07)
[2022-01-11] MEDS: SODIUM CHLORIDE 0.9% IV 1,000 ML 999 ML IV CONT (11:08)
[2022-01-11 12:32] VITALS: BP 177/98; PULSE 63; RESP 16; TEMP 36.3; O2SAT 99
== END 2022-01-11 12:34 | disposition home or self-care (01) ==
PROVIDERS: Physician Assistant; Emergency Provider Emergency Medicine; PCP Family Medicine
DX: S06.0X9A Concussion with loss of consciousness of unspecified duration, initial encounter (principal); M25.512 Pain in left shoulder; G89.29 Other chronic pain; Z79.82 Long term (current) use of aspirin; E11.9 Type 2 diabetes mellitus without complications; I10 Essential (primary) hypertension; E66.01 Morbid (severe) obesity due to excess calories; G47.33 Obstructive sleep apnea (adult) (pediatric); M17.11 Unilateral primary osteoarthritis, right knee; M19.012 Primary osteoarthritis, left shoulder; I45.10 Unspecified right bundle-branch block; R94.31 Abnormal electrocardiogram [ECG] [EKG]; W19.XXXA Unspecified fall, initial encounter
CPT/HCPCS: 36415; 70450; 71046; 72125; 73030; 73562; 80053; 85025; 85610; 85730; 93005; 96365; 96375; 99284; J0131; J1885; J2405; J7030; L0140

== ENCOUNTER 2022-09-10 15:04 | Emergency (ER) | payer BC, SELFPAY ==
--- NOTE | ~2022-09-10 | XR_ITS ---
XR knee RT min 4V DATE: 09/10/2022 17:24 INDICATION: Knee pain. Patient woke up with knee pain 1 day ago TECHNIQUE: 4 views COMPARISON: 01/11/2022 right knee FINDINGS: No fracture or dislocation or joint effusion. No periosteal reaction or bone destruction. J oint spaces are preserved. No radiopaque intra-articular loose body or chondral calcinosis. Slight pe riarticular spurring is noted at the lateral compartment, consistent with slight osteoarthritis. IMPRESSION: No significant abnormality other than slight osteoarthritis Reviewed, dictated and finalized at location A. DRY WORKER GENERAL
[2022-09-10 15:58] VITALS: BP 189/101; PULSE 94; RESP 16; TEMP 36.6; O2SAT 100
--- NOTE | 2022-09-10 17:45 | ED.EXTPRO ---
HPI - Extremity Problem General Chief complaint: Extremity Problem,Nontraumatic Stated complaint: right knee pain Time Seen by Provider: 09/10/22 17:18 Source: patient Mode of arrival: wheelchair Limitations: no limitations History of Present Illness HPI Narrative: This is a 57 year old male that presents to the ER for right knee pain ongoing since yesterday. Reports he twisted his knee a couple of days ago and is unsure if that is attributing. The pain is worse with movement and relieved with rest. Reports he is unable to ambulate due to pain. Reports swelling of the knee. Denies fever, or erythema. Related Data Home Medications Medication Instructions Recorded Confirmed carvedilol 25 mg tablet 25 mg PO Q12H 09/05/19 09/07/22 chlorthalidone 25 mg tablet 25 mg PO DAILY 09/05/19 09/07/22 lisinopril 40 mg tablet 40 mg PO DAILY 09/05/19 09/07/22 famotidine 20 mg tablet (Pepcid) 20 mg PO BID 03/01/21 09/07/22 Allergies Allergy/AdvReac Type Severity Reaction Status Date / Time No Known Allergies Allergy Verified 09/07/22 08:00 Review of Systems Review of Systems: CONSTITUTIONAL: Denies fever SKIN: Denies rash MUSCULOSKELETAL: Reports joint pain, and myalgia. NEUROLOGIC: Denies numbness, or weakness. All systems reviewed & are unremarkable except as noted in HPI and below PMFSH Past Medical History Medical History Chest pain Diabetes mellitus Diagnosed in September 2020 at which time his A1c was 6.9%. To avoid medication he has been trying to lose weight with most recent hemoglobin A1c of 6.6%. Essential hypertension Morbid obesity with BMI of 40.0-44.9, adult Normal nuclear stress test (01/29/21) Obstructive sleep apnea Untreated, patient does not tolerate CPAP. Right bundle branch block Right bundle branch block Surgical History Surgical History History of cardiac catheterization (~02/2019) Normal coronary arteries. Hx of shoulder replacement s/p left Family History Family History Mother Family history of cardiovascular disease Diabetes mellitus Hypertension Sibling Family history of cardiovascular disease Acute myocardial infarction Hypertension Grandparent Chronic obstructive pulmonary disease Diabetes mellitus Social History Social History Social History: Surrogate decision maker: Megan Puentes, mother. Code status: Full code. Smoking status: Never smoker Second hand tobacco smoke exposure: No Alcohol intake: current Drinks per week: 2 Substance use: never Substance use type: does not use Additional living arrangements comments: The patient lives in [place] with his daughter. Additional occupation/education comments: Works in [employer] at [employer]. Gender identity (if verbalized by the patient): Male Sexual Orientation (if Verbalized by the Patient): Straight or Heterosexual Spiritual care concerns: No Exam Narrative: GENERAL: Well-appearing, well-nourished, and in no acute distress. HEAD: Normocephalic, atraumatic. EYES: EOMI. CHEST: No respiratory distress. HEART: Regular rate EXTREMITIES: Normal range of motion. Mild edema about the right knee anteriorly extending into the lower leg. No erythema or warmth. Normal DP pulse. Normal sensation SKIN: Warm, dry, no rash. NEURO: No focal deficits. Alert and oriented x3. PSYCH: Normal mood and affect Course Vital Signs Vital signs: Vital Signs Temperature 97.8 F 09/10/22 15:58 Pulse Rate 94 09/10/22 15:58 Respiratory Rate 16 09/10/22 15:58 Blood Pressure 189/101 H 09/10/22 15:58 Pulse Oximetry 100 09/10/22 15:58 Oxygen Delivery Room Air 09/10/22 15:58 Temperature 97.8 F 09/10/22 15:58 Pulse Rate 94 09/10/22 15:58 Respiratory Rate 16 09/10
[2022-09-10] MEDS: HYDROcodone/acetaminophen (*CRX) 5-325 MG TABLET 1 TAB PO (18:04)
[2022-09-10] MEDS: lisinopriL 20 MG TABLET 40 MG PO (18:05)
[2022-09-10] MEDS: amLODIPine BESYLATE 5 MG TABLET 10 MG PO (18:05)
[2022-09-10] MEDS: CHLORTHALIDONE 25 MG TABLET PO (18:13)
[2022-09-10] MEDS: ACETAMINOPHEN 325 MG TABLET 650 MG PO (20:25)
[2022-09-10 20:58] LABS: Basophils Absolute Auto 0.1 K/mm3 (0.0-0.1); Basophils Percent Auto 0.7 % (0.2-1.2); Eosinophils Absolute Auto 0.2 K/mm3 (0-0.3); Eosinophils Percent Auto 2.4 % (0-4.4); Hematocrit 46.4 % (42.0-52.0); Hemoglobin 15.3 g/dL (14.0-18.0); Immature Granulocyte Absolute 0.01 K/mm3 (0.00-0.031); Immature Granulocyte Percent A 0.1 % (0-0.5); Lymphocytes Percent Auto 31.3 % (18.3-44.2); Mean Corpuscular Hemoglobin 30.8 pg (26-34); Mean Corpuscular Volume 93.4 fl (80-100); Mean Platelet Volume 10.2 fl (7.4-10.4); Monocytes Absolute Auto 0.8 K/mm3 (0.1-0.6); Monocytes Percent Auto 11.2 % (2.6-8.5); Neutrophils Absolute Auto 3.8 K/mm3 (1.3-6.7); Neutrophils Percent Auto 54.3 % (45.5-73.1); Platelet Count Result 209 k/mm3 (150-375); Red Blood Count 4.97 M/mm3 (4.6-6.20); Red Cell Distribution Width 13.5 % (11.5-14.5)
[2022-09-10 21:08] LABS: Prothrombin Time 12.9 Seconds (11.1-14.7)
[2022-09-10 21:12] LABS: Anion Gap 12 mmol/L (8-16); Blood Urea Nitrogen 22 mg/dL (9-20); Calcium 8.8 mg/dL (8.4-10.2); Carbon Dioxide 27 mmol/L (22-30); Chloride 100 mmol/L (98-107); D Dimer 1.77 ug/mL (<0.48); Estimated CRCL calculation 82 ml/min; Estimated Glomerular Filt Rate > 60; Glucose 143 mg/dL (65-110); Potassium 4.1 mmol/L (3.4-5.0); Sodium 139 mmol/L (137-145)
[2022-09-10] MEDS: ENOXAPARIN 120 MG/0.8 ML SYRINGE SUB-Q (22:18)
== END 2022-09-10 22:42 | disposition home or self-care (01) ==
PROVIDERS: Emergency Provider Physician Assistant; PCP Family Medicine
DX: M25.561 Pain in right knee (principal); R79.1 Abnormal coagulation profile; E11.9 Type 2 diabetes mellitus without complications; I10 Essential (primary) hypertension; E66.01 Morbid (severe) obesity due to excess calories; Z68.41 Body mass index [BMI] 40.0-44.9, adult; G47.33 Obstructive sleep apnea (adult) (pediatric); Z96.612 Presence of left artificial shoulder joint; Z79.82 Long term (current) use of aspirin
CPT/HCPCS: 36415; 73564; 80048; 85025; 85380; 85610; 85730; 96372; 99283; A9270; J1650

== ENCOUNTER 2022-09-10 23:59 | Emergency (ER) | payer BC, SELFPAY ==
--- NOTE | ~2022-09-10 | US_ITS ---
US venous doppler LE RT DATE: 09/11/2022 07:31 INDICATION: Right calf pain TECHNIQUE: Real-time and color flow imaging and Doppler analysis of the veins of the right lower extr emity COMPARISON: None FINDINGS: The greater saphenous vein is patent. There is spontaneous and phasic flow and normal augme ntation and color flow signal and normal compression of the deep veins of the right lower extremity. IMPRESSION: No evidence of deep venous thrombosis of right lower extremity Reviewed, dictated and finalized at Location A. Reviewed, dictated and finalized at location A. S SECRETARY
[2022-09-11 00:02] VITALS: BP 172/86; PULSE 78; RESP 18; O2SAT 99
--- NOTE | 2022-09-11 00:41 | ECG_ITS ---
Measurements Intervals [place] Rate: 76 P: 39 [place]: 198 QRS: -20 QRSD: 147 T: -5 QT: 421 QTc: 476 Interpretive Statements SINUS RHYTHM RIGHT BUNDLE BRANCH BLOCK VOLTAGE CRITERIA FOR LVH INFERIOR INFARCT, AGE INDETERMINATE BASELINE ARTIFACT- II, AVR, AVF, V6 ABNORMAL ECG COMPARED TO ECG 01/11/2022 09:35:24 NO SIGNIFICANT CHANGES Electronically Signed On 09-11-2022 9:45:09 MACHINE OVERHAULER by Trevor Laws D.O.
--- NOTE | 2022-09-11 02:40 | PC.NURSE ---
patient states he was only home for a few minuets prior to having to call an ambulance and return to er
[2022-09-11] MEDS: HYDROcodone/acetaminophen (*CRX) 5-325 MG TABLET 1 TAB PO (02:54)
[2022-09-11 03:45] LABS: Basophils Percent Auto 0.5 % (0.2-1.2); Eosinophils Absolute Auto 0.1 K/mm3 (0-0.3); Eosinophils Percent Auto 1.7 % (0-4.4); Hematocrit 44.4 % (42.0-52.0); Hemoglobin 14.5 g/dL (14.0-18.0); Immature Granulocyte Absolute 0.01 K/mm3 (0.00-0.031); Immature Granulocyte Percent A 0.1 % (0-0.5); Lymphocytes Absolute Auto 2.11 K/mm3 (0.9-3.2); Lymphocytes Percent Auto 26.8 % (18.3-44.2); Mean Corpuscular HGB Conc 32.7 g/dl (32-36); Mean Corpuscular Hemoglobin 30.6 pg (26-34); Mean Corpuscular Volume 93.7 fl (80-100); Mean Platelet Volume 10.8 fl (7.4-10.4); Monocytes Absolute Auto 0.7 K/mm3 (0.1-0.6); Neutrophils Absolute Auto 4.9 K/mm3 (1.3-6.7); Neutrophils Percent Auto 61.9 % (45.5-73.1); Platelet Count Result 221 k/mm3 (150-375); Red Blood Count 4.74 M/mm3 (4.6-6.20); Red Cell Distribution Width 13.3 % (11.5-14.5); White Blood Count 7.9 K/mm3 (4.5-10.0)
[2022-09-11 03:54] LABS: INR 1.1; Prothrombin Time 13.5 Seconds (11.1-14.7); Uric Acid 7.5 mg/dL (3.5-8.5)
[2022-09-11 03:55] LABS: Partial Thromboplastin Time 35.5 SECONDS (22.3-36.8)
[2022-09-11 03:58] LABS: Alanine Aminotransferase 27 U/L (6-50); Albumin Level 4.3 g/dL (3.5-5.1); Alkaline Phosphatase 90 U/L (38-126); Anion Gap 11 mmol/L (8-16); Aspartate Amino Transferase 26 U/L (17-59); Bilirubin,Total 0.8 mg/dL (0.2-1.3); Blood Urea Nitrogen 22 mg/dL (9-20); CRP 1.3 mg/dL (<1.0); Calcium 8.7 mg/dL (8.4-10.2); Carbon Dioxide 23 mmol/L (22-30); Chloride 101 mmol/L (98-107); Estimated Glomerular Filt Rate > 60; Glucose 137 mg/dL (65-110); Sodium 135 mmol/L (137-145)
--- NOTE | 2022-09-11 04:08 | ED.GENADULT ---
HPI - General Adult General Chief complaint: Extremity Injury, Lower <Joshua Muir DO - Last Filed: 09/11/22 07:38> Stated complaint: R knee pain <Joshua Muir DO - Last Filed: 09/11/22 07:38> Time Seen by Provider: 09/11/22 02:33 <Joshua Muir DO - Last Filed: 09/11/22 07:38> Source: RN notes reviewed <Joshua Muir DO - Last Filed: 09/11/22 07:38> History of Present Illness HPI narrative: Pt presents to emergency department from home for right knee and leg pain. patient states that pain began 2 days ago. pain is diffusely in right knee and radiates to right calf. denies any known trauma or injury. states pain is worse with bending knee and walking. pt was seen in ed earlier today and had xray and lab work that was normal. pt did not take any pain medication at home. he is scheduled for a morning and had lovenox las night <Joshua Muir DO - Last Filed: 09/11/22 07:38> Related Data Home medications: Home Medications Medication Instructions Recorded Confirmed carvedilol 25 mg tablet 25 mg PO Q12H 09/05/19 09/07/22 chlorthalidone 25 mg tablet 25 mg PO DAILY 09/05/19 09/07/22 lisinopril 40 mg tablet 40 mg PO DAILY 09/05/19 09/07/22 famotidine 20 mg tablet (Pepcid) 20 mg PO BID 03/01/21 09/07/22 <Joshua Muir DO - Last Filed: 09/11/22 07:38> Allergies/adverse reactions: Allergies Allergy/AdvReac Type Severity Reaction Status Date / Time No Known Allergies Allergy Verified 09/07/22 08:00 <Joshua Muir DO - Last Filed: 09/11/22 07:38> Review of Systems Review of Systems: Gen.: Denies fevers or chills Musculoskeletal: See HPI Neuro: Denies numbness, tingling, weakness Skin: Denies rash Endo: Denies DM <DO Lula Zapata Last Filed: 09/11/22 07:38> PMF Past Medical History Medical History: Medical History Chest pain Diabetes mellitus Diagnosed in September 2020 at which time his A1c was 6.9%. To avoid medication he has been trying to lose weight with most recent hemoglobin A1c of 6.6%. Essential hypertension Morbid obesity with BMI of 40.0-44.9, adult Normal nuclear stress test (01/29/21) Obstructive sleep apnea Untreated, patient does not tolerate CPAP. Right bundle branch block Right bundle branch block <Joshua Muir DO - Last Filed: 09/11/22 07:38> Surgical History Surgical History: Surgical History History of cardiac catheterization (~02/2019) Normal coronary arteries. Hx of shoulder replacement s/p left <Joshua Muir DO - Last Filed: 09/11/22 07:38> Family History Family History: Family History Mother Family history of cardiovascular disease Diabetes mellitus Hypertension Sibling Family history of cardiovascular disease Acute myocardial infarction Hypertension Grandparent Chronic obstructive pulmonary disease Diabetes mellitus <Joshua Muir DO - Last Filed: 09/11/22 07:38> Social History Social History: Social History Social History: Surrogate decision maker: Megan Puentes, mother. Code status: Full code. Smoking status: Never smoker Second hand tobacco smoke exposure: No Alcohol intake: current Drinks per week: 2 Substance use: never Substance use type: does not use Additional living arrangements comments: The patient lives in [place] with his daughter. Additional occupation/education comments: Works in [employer] at [employer]. Gender identity (if verbalized by the patient): Male Sexual Orientation (if Verbalized by the Patient): Straight or Heterosexual Spiritual care concerns: No <DO Lula Zapata Last Filed: 09/11/22 07:38> Exam Narrative: APPEARANCE: No acute distress, n
[2022-09-11 04:21] LABS: Erythrocyte Sedimentation Rate 14 mm/hr (0-20)
[2022-09-11 05:53] VITALS: BP 121/82; PULSE 70; RESP 18; TEMP 36.8; O2SAT 97
--- NOTE | 2022-09-11 07:16 | PC.NURSE ---
Ultrasound at bedside.
[2022-09-11 07:29] VITALS: BP 149/90; PULSE 65; RESP 18; O2SAT 97
[2022-09-11] MEDS: oxyCODONE/ACETAMINOPHEN (*CRX) 5-325 MG TABLET 1 TABLET PO (08:26)
[2022-09-11] MEDS: KETOROLAC (*BKC) 60 MG/2 ML VIAL IM (09:44)
[2022-09-11 09:51] VITALS: BP 149/91; PULSE 62; RESP 20; O2SAT 97
== END 2022-09-11 10:53 | disposition home or self-care (01) ==
PROVIDERS: Emergency Medicine; Emergency Provider Emergency Medicine; PCP Family Medicine
DX: M25.561 Pain in right knee (principal); E11.9 Type 2 diabetes mellitus without complications; I10 Essential (primary) hypertension; E66.01 Morbid (severe) obesity due to excess calories; G47.33 Obstructive sleep apnea (adult) (pediatric); Z79.82 Long term (current) use of aspirin; I45.10 Unspecified right bundle-branch block; R94.31 Abnormal electrocardiogram [ECG] [EKG]
CPT/HCPCS: 36415; 80053; 84550; 85025; 85610; 85652; 85730; 86140; 93005; 93971; 96372; 99284; A9270; J1885

== ENCOUNTER 2023-02-15 07:55 | Outpatient (CLI) | payer BC, SELFPAY ==
[2023-02-15 08:47] LABS: Appearance Urine Clear (Clear); Bacteria Urine None Seen /hpf; Bilirubin Urine Negative (Negative); Blood Urine Trace (Negative); Color Urine Yellow (Yellow); Glucose Urine UA Negative (Negative); Ketones Urine Negative (Negative); Leukocyte Esterase Ur Negative LEU/UL (NEGATIVE); Nitrate Urine Negative (Negative); Non Pathogenic Casts 0-2; Protein Urine Negative (Negative); RBC Urine 0-2 /hpf (0-2); Specific Grav Ur 1.021 (1.001-1.035); Squamous Epithelial Cell Urine None seen /hpf (Few); Urobilinogen Urine 0.2 mg/dL (<2.0); WBC Urine 0-5 /hpf (0-3); pH Urine 5.5 (5.0-9.0)
[2023-02-15 08:48] LABS: Basophils Absolute Auto 0.1 K/mm3 (0.0-0.1); Basophils Percent Auto 0.8 % (0.2-1.2); Eosinophils Absolute Auto 0.1 K/mm3 (0-0.3); Eosinophils Percent Auto 2.1 % (0-4.4); Hematocrit 49.5 % (42.0-52.0); Hemoglobin 16.4 g/dL (14.0-18.0); Immature Granulocyte Absolute 0.02 K/mm3 (0.00-0.031); Immature Granulocyte Percent A 0.3 % (0-0.5); Lymphocytes Absolute Auto 1.72 K/mm3 (0.9-3.2); Lymphocytes Percent Auto 27.9 % (18.3-44.2); Mean Corpuscular HGB Conc 33.1 g/dl (32-36); Mean Corpuscular Hemoglobin 30.2 pg (26-34); Mean Corpuscular Volume 91.2 fl (80-100); Mean Platelet Volume 10.4 fl (7.4-10.4); Monocytes Absolute Auto 0.6 K/mm3 (0.1-0.6); Monocytes Percent Auto 9.4 % (2.6-8.5); Neutrophils Absolute Auto 3.7 K/mm3 (1.3-6.7); Neutrophils Percent Auto 59.5 % (45.5-73.1); Platelet Count Result 212 k/mm3 (150-375); Red Blood Count 5.43 M/mm3 (4.6-6.20); Red Cell Distribution Width 13.7 % (11.5-14.5); White Blood Count 6.2 K/mm3 (4.5-10.0)
[2023-02-15 08:48] LABS: Add Urine Microscopic? YES
[2023-02-15 08:56] LABS: Alanine Aminotransferase 28 U/L (6-50); Albumin Level 4.4 g/dL (3.5-5.1); Alkaline Phosphatase 87 U/L (38-126); Anion Gap 7 mmol/L (8-16); Aspartate Amino Transferase 25 U/L (17-59); Bilirubin,Total 0.9 mg/dL (0.2-1.3); Blood Urea Nitrogen 15 mg/dL (9-20); Calcium 8.7 mg/dL (8.4-10.2); Carbon Dioxide 30 mmol/L (22-30); Chloride 100 mmol/L (98-107); Cholesterol 200 mg/dL (0-200); Estimated Glomerular Filt Rate > 60; Glucose 137 mg/dL (65-110); HDL Direct 30 mg/dL; Potassium 3.8 mmol/L (3.4-5.0); Sodium 137 mmol/L (137-145); Triglycerides 168 mg/dL (<150)
[2023-02-15 09:04] LABS: Hemoglobin A1C 7.2 % (<5.7)
[2023-02-15 09:07] LABS: LDL Cholesterol Direct 130 mg/dL
[2023-02-15 09:22] LABS: Creatinine Urine 183.5 mg/dL
[2023-02-15 09:26] LABS: Prostate Specific Antigen 0.8 ng/mL (< OR = 4.0); Thyroid Stimulating Hormone 0.934 uIU/mL (0.465-4.680)
[2023-02-15 09:27] LABS: MALB Creatinine Ratio 28.4 mg/g (0-30); Microalbumin Urine Random 52.2 mg/L (0-16.7)
== END 2023-02-15 07:56 | disposition home or self-care (01) ==
PROVIDERS: PCP Family Medicine; Visit Provider Physician Assistant
DX: E11.9 Type 2 diabetes mellitus without complications (principal); I10 Essential (primary) hypertension; I16.0 Hypertensive urgency; N17.9 Acute kidney failure, unspecified; R53.83 Other fatigue; R53.1 Weakness
CPT/HCPCS: 36415; 80053; 80061; 81001; 82043; 83036; 84153; 84443; 85025

== ENCOUNTER 2023-06-17 08:38 | Outpatient (CLI) | payer BC, SELFPAY ==
[2023-06-17 09:53] LABS: Alanine Aminotransferase 22 U/L (6-50); Albumin Level 4.2 g/dL (3.5-5.1); Alkaline Phosphatase 76 U/L (38-126); Anion Gap 8 mmol/L (8-16); Aspartate Amino Transferase 26 U/L (17-59); Bilirubin,Total 0.6 mg/dL (0.2-1.3); Blood Urea Nitrogen 18 mg/dL (9-20); Carbon Dioxide 28 mmol/L (22-30); Chloride 100 mmol/L (98-107); Cholesterol 200 mg/dL (0-200); Estimated Glomerular Filt Rate > 60; Glucose 134 mg/dL (65-110); HDL Direct 35 mg/dL; Hemoglobin A1C 6.9 % (<5.7); Sodium 136 mmol/L (137-145); Triglycerides 159 mg/dL (<150)
[2023-06-17 10:04] LABS: LDL Cholesterol Direct 123 mg/dL
== END 2023-06-17 08:39 | disposition home or self-care (01) ==
PROVIDERS: PCP Family Medicine; Visit Provider Physician Assistant
DX: E11.9 Type 2 diabetes mellitus without complications (principal); I10 Essential (primary) hypertension
CPT/HCPCS: 36415; 80053; 80061; 83036

== ENCOUNTER 2024-11-12 16:54 | Outpatient (CLI) | payer BC, SELFPAY ==
--- OUTSIDE RECORDS SUMMARY | 2024-11-12 16:59 | XMS_ITS | Referral Summary ---
Author [place] [facility] [place] [address] Address [address] [place] [address] Care Team Providers Care Street Contractor Name Role Phone Paulino Pool MD Primary Care Provider Allergies No known active allergies Medications ALPRAZolam (XANAX) 0.25 mg tabletIndicatio ns:anxiety Take 1 tablet (0.25 mg total) by mouth every morning 1 Active busPIRone (BUSPAR) 5 mg tabletIndicatio ns:Generalized Anxiety Disorder Take 1 tablet (5 mg total) by mouth 2 (two) times a day 2 Active escitalopram (LEXAPRO) 20 mg tabletIndicatio ns:Anxiety with Depression Take 1 tablet (20 mg total) by mouth every morning Active traZODone (DESYREL) 50 mg tabletIndicatio ns:insomnia associated with depression Take 1 tablet (50 mg total) by mouth nightly Active aspirin 81 mg enteric coated tabletIndicatio ns:Deep Vein Thrombosis Prevention Take 1 tablet (81 mg total) by mouth 2 (two) times a day 28 tablet 2 Active Additional Information Patient taking differently:81 mg oralDaily (early AM), Indications: prevention of thrombosis, Reported on 07/29/2023 acetaminophen 500 mg capsuleIndicati ons:Pain Take 2 capsules (1,000 mg total) by mouth every 6 (six) hours 60 tablet 1 2 Active hydrOXYzine (VISTARIL) 50 mg capsule Take 1 capsule (50 mg total) by mouth every 6 (six) hours as needed (Pain) 60 capsule 2 Active lisinopriL (PRINIVIL,ZESTR IL) 20 mg tabletIndicatio ns:Hypertensive heart disease without heart failure Take 1 tablet (20 mg total) by mouth daily 90 tablet 3 3 Active amLODIPine (NORVASC) 10 mg tablet 3 Active rosuvastatin (CRESTOR) 10 mg tablet Take 1 tablet (10 mg total) by mouth nightly at bedtime 3 Active carvediloL (COREG) 25 mg tabletIndicatio ns:Hypertensive heart disease without heart failure TAKE 1 TABLET(25 MG) BY MOUTH TWICE DAILY WITH MEALS 180 tablet 3 3 Active chlorthalidone (HYGROTON) 25 mg tabletIndicatio ns:Hypertensive heart disease without heart failure TAKE 1 TABLET(25 MG) BY MOUTH DAILY 90 tablet 3 3 Active Active Problems Problem Noted Date Diagnosed Date Ulnar neuropathy of left upper extremity 022 Overview (07/16/2022): Added automatically from request for surgery [id number] Median neuropathy, left 07/16/2022 Overview (07/16/2022): Added automatically from request for surgery [id number] Lipid screening 06/16/2022 Shoulder arthritis 03/31/2022 Nontraumatic complete tear of left rotator cuff 03/11/2022 Overview (03/11/2022): Added automatically from request for surgery [id number] Pain in joint of left shoulder 01/28/2022 Partial thickness rotator cuff tear 01/28/2022 PVC's (premature ventricular contractions) 05/21 Obstructive sleep apnea 11/15/2019 Syncope and collapse 11/15/2019 Dizziness 2019 Essential hypertension 2019 Morbid obesity with BMI of 40.0-44.9, adult 03/2019 Hypersomnolence 2019 Hypertensive heart disease without heart failure 04/13/2019 Immunizations Name Administration Dates Next Due Moderna SARS-CoV-2 Monovalent Vaccination (12+ Y RS) 11/06/2020 Social History Tobacco Use Types Packs/Day Years Used Date Smoking Tobacco: Never Smokeless Tobacco: Never Tobacco Cessation:Counseling Given: Not Answered AUDIT-C Answer Date Recorded Q1: How often do you have a drink containing alc ohol? Monthly or less 09/13/2022 Average Number of Drinks Not on file 022 Frequency of Binge Drinking Not on file 08/18 Sex and Gender Information Value Date Recorded Sex Assigned at Not on file Legal Sex Male 2:48 PM CDT Gender Identity Not on file Sexual Orientation Not on file Last Filed Vital Signs Vital Sign Reading Time Taken Comments Blood Pressure 160/104 07/29/2023 8:03 AM CDT Pulse 65 07/29/2023 8:03 AM CDT Temperature 36.4 ??C (97.5 ??F) 08/17/2022 5:20 PM CD T Respiratory Rate 28 08/17/2022 5:20 PM CDT Oxygen Saturation 93% 07/29/2023 8:03 AM CDT Inhaled Oxygen Concentration - - Weight 132.5 kg (292 lb) 07/29/2023 8:03 AM CDT Height 177.8 cm (5' 10 ) 07/29/2023 8:03 AM CDT Body Mass Index 41.9 07/29/2023 8:03 AM CDT Plan of Treatment Not on file Medical Devices Implanted Type Area Solar Process Engineer Device Identifier Shelf Expiration Date Model / Serial / Lot [employer]orn[employer] Aequalis Perform 25mm Lateralize Augment Reverse Shoulder [id number] - [id number] - [id number] Implanted:Qty : 1 on 03/31/2022 by Hema Cheng MD at [facility] Other - see comments Left: Shoulder [employer] [id number] 06/24/2026 [id number] / [id number] / NA Description:BasePlate Implant Pause Performed [employer]ornier Aequalis Perform Od39 Mm Lateralize Reverse Shoulder +3 Mm Sphere Glenoid [id number] - [id number] - [id number] Implanted:Qty : 1 on 03/31/2022 by Hema Cheng MD at [facility] Left: Shoulder [employer] [id number] 12/22/2026 [id number] / [id number] / Description:Implant pause pe rformed [employer] Aequalis Perform Reversed Od6.5 Mm L40 Mm Central Glenoid Screw Baseplate Nonsterile [id number] - [id number] Implanted:Qty : 1 on 03/31/2022 by Hema Cheng MD at [facility] Left: Shoulder [employer] [id number] / / [employer] Aequalis Perform Reversed Od5 Mm L46 Mm Peripheral Glenoid Screw Baseplate Nonsterile Qtr469 - [id number] Implanted:Qty : 1 on 03/31/2022 by Hema Cheng MD at [facility] Left: Shoulder [employer] [id number] / / [employer] Aequalis Perform Reversed 5mm 34mm Peripheral Glenoid Screw [id number] - [id number] Implanted:Qty : 1 on 03/31/2022 by Hema Cheng MD at [facility] Left: Shoulder [employer] [id number] / / [employer] [id number] Insert Perform 10 Deg [id number] - [id number] - [id number] Implanted:Qty : 1 on 03/31/2022 by Hema Cheng MD at [facility] Left: Shoulder [employer] [id number] 11/27/2026 [id number] / [id number] / Description:Implant pause pe rformed [employer] Dwx3ss Stem Perform Sz 3 Humeral - [id number] - [id number] Implanted:Qty : 1 on 03/31/2022 by Hema Cheng MD at [facility] Left: Shoulder [employer] [id number] 12/21/2026 [id number] / [id number] / Description:Implant pause pe rformed Insurance [employer] ACCESS Care Thread [employer] ACCESS Advance Directives For more information, please contact: [phone] * Full Code (Latest Code Status on File) Date Activated Date Inactivated Comments 03/31/2022 2:03 PM 04/01/2022 2:[address] Contractor Relationship Specialty Start Date End Date Paulino Pool MD [address] [place] [id number] PCP - General Family Medicine 04/30/19
--- OUTSIDE RECORDS SUMMARY | 2024-11-12 16:59 | XMS_ITS | Clinical Summary ---
Author Organization [facility] – [place], [place] [address] [facility] [address] [place] [address] Care Team Providers Care Lawn Technician Name Role Phone Paulino Pool MD Primary [...] (07/16/2022): Added automatically from request for surgery [id number] Median neuropathy, left 07/16/2022 Overview (07/16/2022): Added automatically from request for surgery [id number] Lipid screening 06/16/2022 Shoulder arthritis 03/31/2022 Nontraumatic complete tear of left rotator cuff 03/11/2022 Overview (03/11/2022): Added automatically from request for surgery [id number] Pain in joint of left shoulder 01/28/2022 Partial thickness rotator cuff tear 01/28/2022 PVC's (premature ventricular contractions) 05/21 Obstructive sleep apnea 11/15/2019 Syncope and collapse 11/15/2019 Dizziness 2019 Essential hypertension 2019 Morbid obesity with BMI of 40.0-44.9, adult 03/2019 Hypersomnolence 2019 Hypertensive heart disease without heart failure 04/13/2019 Immunizations Name Administration Dates Next Due Moderna SARS-CoV-2 Monovalent Vaccination (12+ Y RS) 11/06/2020 Surgical History Surgery Date Site/Laterality Comments CARDIAC CATHETERIZATION 02/14/2021 - 03/16/2021 COLONOSCOPY 10/17/2019 - 10/16/2020 JOINT REPLACEMENT 03/17/2022 - 04/15/2022 Left Medical History Medical History Date Comments Hypertension Dizziness Sleep apnea Family History Medical History Relation Name Comments Anesthesia problems Neg Hx Relation Name Status Comments Father father's medica l history unknown Mother Alive poor health in general Sister Alive Social History Tobacco Use Types Packs/Day Years [...] on file Sexual Orientation Not on file Obstetrics History Last Filed Vital Signs Vital Sign Reading [...] 07/29/2023 8:03 AM CDT Plan of Treatment Health Maintenance Due Date Last Done Comments Colon Cancer Screening-Colonoscopy 1966 Depression Screening 1966 Hepatitis C Screening 1966 Prostate Cancer Screening-PSA 1966 DTaP/Tdap/Td Vaccine (1 - Tdap) 1977 Hepatitis B Screening 1984 Regular Well Visit/Exam 18-64 1984 Zoster Vaccine (1 of 2) 2016 Covid-19 Vaccine (3 2023-2 5 season) 2024 12/04/2020, 11/06/2020 Influenza Vaccine (#1) 2024 Pneumococcal vaccine <65 Aged Out No longer eligible based on patient's age to complete this topic Medical Devices Implanted Type Area Manager Traffic Device Identifier Shelf Expiration Date Model / Serial / Lot [employer] Tornier Aequalis Perform 25mm Lateralize Augment Reverse Shoulder [id number] - [id number] - [id number] Implanted:Qty : 1 on 03/31/2022 by Hema Cheng MD at [facility] Other - see comments Left: Shoulder [employer] [id number] 06/24/2026 [id number] / [id number] / NA Description:BasePlate Implant Pause Performed [employer] Tornier Aequalis Perform Od39 Mm Lateralize Reverse Shoulder +3 Mm Sphere Glenoid Lih143 - [id number] - [id number] Implanted:Qty : 1 on 03/31/2022 by Hema Cheng MD at [facility] Left: Shoulder [employer] [id number] 12/22/2026 ADY284 / [id number] / Description:Implant pause pe rformed [employer] Aequalis Perform Reversed Od6.5 Mm L40 Mm Central Glenoid Screw Baseplate Nonsterile Bop109 - [id number] Implanted:Qty : 1 on 03/31/2022 by Hema Cheng MD at [facility] Left: Shoulder [employer] [id number] / / [employer] Aequalis Perform Reversed Od5 Mm L46 Mm Peripheral Glenoid Screw Baseplate Nonsterile [id number] - [id number] Implanted:Qty : 1 on 03/31/2022 by Hema Cheng MD at [facility] Left: Shoulder [employer] [id number] / / [employer] Aequalis Perform Reversed 5mm 34mm Peripheral Glenoid Screw [id number] - [id number] Implanted:Qty : 1 on 03/31/2022 by Hema Cheng MD at [facility] Left: Shoulder [employer] [id number] / / [employer] [id number] Insert Perform 10 Deg [id number] - [id number] - [id number] Implanted:Qty : 1 on 03/31/2022 by Hema Cheng MD at [facility] Left: Shoulder [employer] [id number] 11/27/2026 [id number] / [id number] / Description:Implant pause pe rformed [employer] Dwx3ss Stem Perform Sz 3 Humeral - [id number] - [id number] Implanted:Qty : 1 on 03/31/2022 by Hema Cheng MD at [facility] Left: Shoulder [employer] [id number] 12/21/2026 DWX3SS / [id number] / Description:Implant pause pe rformed Insurance [facility] [employer] [facility] ACC[facility] Advance Directives For more information, please contact: [phone] * Full Code (Latest Code Status on File) Date Activated Date Inactivated Comments 03/31/2022 2:03 PM 04/01/2022 2:03 PM Care Teams Lawn Technician Relationship Specialty Start Date End Date Paulino Pool MD [address] [email or web address] [address] [place] [address] PCP - General Family Medicine 04/30/19
[2024-11-12 18:04] LABS: Basophils Absolute Auto 0.1 K/mm3 (0.0-0.1); Basophils Percent Auto 0.7 % (0.2-1.2); Eosinophils Absolute Auto 0.1 K/mm3 (0-0.3); Eosinophils Percent Auto 1.7 % (0-4.4); Hemoglobin 16.8 g/dL (14.0-18.0); Immature Granulocyte Absolute 0.03 K/mm3 (0.00-0.031); Immature Granulocyte Percent A 0.4 % (0-0.5); Lymphocytes Absolute Auto 2.12 K/mm3 (0.9-3.2); Lymphocytes Percent Auto 25.9 % (18.3-44.2); Mean Corpuscular HGB Conc 32.9 g/dl (32-36); Mean Corpuscular Volume 91.1 fl (80-100); Mean Platelet Volume 10.6 fl (7.4-10.4); Monocytes Absolute Auto 0.7 K/mm3 (0.1-0.6); Monocytes Percent Auto 8.4 % (2.6-8.5); Neutrophils Absolute Auto 5.2 K/mm3 (1.3-6.7); Neutrophils Percent Auto 62.9 % (45.5-73.1); Platelet Count Result 247 k/mm3 (150-375); Red Cell Distribution Width 12.5 % (11.5-14.5); White Blood Count 8.2 K/mm3 (4.5-10.0)
[2024-11-12 18:14] LABS: Uric Acid 7.8 mg/dL (3.5-8.5)
== END 2024-11-12 16:55 | disposition home or self-care (01) ==
LOC: ANHLAB 16:57
PROVIDERS: PCP Family Medicine; Visit Provider Podiatrist Foot & Ankle Surgery
DX: M10.071 Idiopathic gout, right ankle and foot (principal)
CPT/HCPCS: 36415; 84550; 85025